=== PATIENT | female | born 1935 | race Caucasian/White ===

== ENCOUNTER 2018-06-28 08:47 | Emergency (ER) | payer MEDICARE, OTHER ==
--- NOTE | 2018-06-28 09:10 | ED ---
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 Pt describes the pain as radiating and it woke her from her sleep. Associated sx: intermittent "twinge" in L anterior chest; nausea. Pt states she went out to dinner last night and she felt OK. Aggravating factors: None. Alleviating factors: nitro, which her daughter gave her. 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 Sees Dr. Proctor, cardio, last seen on 06/01 for routine evaluation. Pt lives in [place], but is supposed to travel with her daughter to [place] tomorrow. - History of Current Complaint Chief Complaint: EDChestWallPain Time Seen by Provider: 06/28/18 08:58 Hx Obtained From: Patient, Family/Mineralogy Professor - daughter present Onset/Duration: Started Hours Ago, Atraumatic, Still Present Timing: Constant Initial Severity: Mild Current Severity: Mild Pain Intensity: 3 Pain Scale Used: 0-10 Numeric Chest Pain Location: Diffuse Chest Pain Radiates: Yes Chest Pain Radiates To:: Back Character: Other: - radiating Aggravating Factor(s): Nothing Alleviating Factor(s): NTG 123 Associated Signs and Symptoms: Positive: Nausea, Other: - intermittent "twinge" at L chest - Allergy/Home Medications Allergies/Adverse Reactions: Allergies Allergy/AdvReac Type Severity Reaction Status Date / Time latex Allergy Rash Verified 06/28/18 09:10 Home Medications: Home Medications Acetaminophen [Tylenol Extra Strength] 1,000 mg PO TID PRN 06/28/18 [History Confirmed 06/28/18] Cyanocobalamin TAB* [Vitamin B12 TAB*] 500 mcg PO DAILY 06/28/18 [History Confirmed 06/28/18] Lisinopril TAB* [Prinivil TAB*] 20 mg PO DAILY 06/28/18 [History Confirmed 06/28] Nitroglycerin TAB 0.4 MG* 0.4 mg SL Q5M PRN 06/28/18 [History Confirmed 06/28/18 ] Om3-Dha/Epa/D3/Lutein/Zeazanth [Eye [place] Advantage/Vitam] 1 cap PO BID [History Confirmed 06/28/18] Omeprazole CAP* [Prilosec CAP* 20 MG] 40 mg PO DAILY 06/28/18 [History Confirmed 06/28/18] Oxybutynin XL TAB* [Ditropan XL TAB*] 5 mg PO DAILY 06/28/18 [History Confirmed 06/28/18] Simvastatin (NF) [Zocor (NF)] 40 mg PO DAILY 06/28/18 [History Confirmed ] amLODIPine TAB* [Norvasc 5 mg TAB*] 5 mg PO DAILY 06/28/18 [History Confirmed ] diPHENhydraMINE PO* [Benadryl PO 25 MG TAB*] 25 mg PO BEDTIME PRN 06/28/18 [ History Confirmed 06/28/18] PMH/Surg Hx/FS Hx/Imm Hx Previously Healthy: No Cardiovascular History: Reports: Hx Coronary Artery Disease - 2 CARDIAC STENTS AFTER AR 2007, Hx Hypertension - ON MEDS, Hx Myocardial Infarction, Other Cardiovascular Problems/Disorders - STRESS TEST 09/26/13 Respiratory History: Denies: Other Respiratory Problems/Disorders GI History: Reports: Hx Gastroesophageal Reflux Disease Denies: Other GI Disorders History: Denies: Other Problems/Disorders Musculoskeletal History: Reports: Hx Arthritis - OSTEO HANDS, KNEES LOW BACK Sensory History: Reports: Hx Cataracts, Hx Contacts or Glasses - GLASSES Denies: Hx Hearing Aid Opthamlomology History: Reports: Hx Cataracts, Hx Contacts or Glasses - GLASSES Neurological History: Denies: Other Neuro Impairments/Disorders - Surgical History Surgery Procedure, Year, and Place: 2 CARDIAC STENTS 2007, [facility]. HYSTERECTOMY, , [facility]. TONSILECTOMY A CHILD Hx Anesthesia Reactions: No Infectious Disease History: No Infectious Disease History: Denies: Traveled Outside the [place] in Last 30 Days - Family History Known Family History: Negative: Other - neg: anaesthesia reaction - Social History Occupation: Retired Lives: With Family Alcohol Use: Weekly Alcohol Amount: 2-3 PER WEEK Substance Use Type: Reports: None Smoking Status (MU): Never Smoked Tobacco Review of Systems Positive: Chest Pain - diffuse CP and "twinge" at L chest Positive: Nausea Positive: Other - pos: back pain All Other Systems Reviewed And Are Negative: Yes Physical Exam - Summary Physical Exam Summary: Appearance: The patient is well-nourished in no acute distress and in no acute pain. Skin: The skin is warm and dry and skin color reflects adequate perfusion. HEENT: The head is normocephalic and atraumatic. The pupils are equal and reactive. The conjunctivae are clear and without drainage. Nares are patent and without drainage. Mouth reveals moist mucous membranes and the throat is without erythema and exudate. The external ears are intact. The ear canals are patent and without drainage. The tympanic membranes are intact. Neck: the neck is supple with full range of motion and non-tender. There are no carotid bruits. There is no neck vein distension. Respiratory: Chest is non-tender. Lungs are clear to auscultation and breath sounds are symmetrical and equal. Cardiovascular: Heart is regular rate and rhythm. There is no murmur or rub auscultated. There is no peripheral edema and pulses are symmetrical and equal. Good bilateral radial and bilateral dorsalis pedis pulses. Abdomen: The abdomen is soft and non-tender. There are normal bowel sounds heard in all four quadrants and there is no organomegaly palpated. Musculoskeletal: There is no back tenderness noted. Extremities are non-tender with full range of motion. There is good capillary refill. There is no peripheral edema or calf tenderness elicited. Good bilateral radial and bilateral dorsalis pedis pulses. Neurological: Patient is alert and oriented to person, place and time. The patient has symmetrical motor strength in all four extremities. Cranial nerves are grossly intact. Deep tendon reflexes are symmetrical and equal in all four extremities. Psychiatric: The patient has an appropriate affect and does not exhibit any anxiety or depression. Triage Information Reviewed: Yes Vital Signs On Initial Exam: Initial Vitals Temp Pulse Resp BP Pulse Ox 97.8 F 63 16 143/64 99 06/28/18 08:51 06/28/18 08:51 06/28/18 08:51 06/28/18 08:51 06/28/18 08:51 Vital Signs Reviewed: Yes Diagnostics - Vital Signs Vital Signs Temp Pulse Resp BP Pulse Ox 06/28/18 08:51 97.8 F 63 16 143/64 99 - Laboratory Result Diagrams: 06/28/18 09:19 06/28/18 09:19 Lab Statement: Any lab studies that have been ordered have been reviewed, and results considered in the medical decision making process. - Radiology CXR Xray Interpretation: No Acute Changes - IMPRESSION: No active cardiopulmonary dz. ED provider has reviewed this report. Radiology Interpretation Completed By: Radiologist - EKG 0926 Cardiac Rate: NL - 61 bpm EKG Rhythm: Sinus Rhythm ST Segment: Normal Ectopy: None EKG Interpretation: no STEMI Re-Evaluation - Re-Evaluation 1 Re-Evaluation Time: 13:00 Change: Unchanged Comment: Discussing results with pt. Pt does not want to be admitted. Chest Pain Course/Dx - Course Course Of Treatment: Ms. Ambriz presented with a worrisome story of chest pain which occurred during the night and was mostly relieved by nitroglycerin. She felt a bit nauseated with it but had no other associated symptoms and could not identify any exacerbating or relieving factors. Her initial troponin was 0 and I consult with the hospitalist group. Shonda Loliantonio Rucker came and saw the patient however she refused to stay in the hospital. She was willing to wait for a second troponin which was also 0. She is supposed to fly to [place] tomorrow with her daughter. I recommended against it given the incomplete pressurization of the cabin. She understands my concern but is not willing to stay in the hospital. - Diagnoses Provider Diagnoses: Chest pain - Provider Notifications Discussed Care Of Patient With: Kya Diego - hospitalist Time Discussed With Above Provider: 09:34 Instructed by Provider To: Other - Recommends admission. Discharge - Sign-Out/Discharge Documenting (check all that apply): Patient Departure - DC - Discharge Plan Condition: Stable Disposition: HOME Patient Education Materials: Chest Pain (ED) Referrals: Anne Dasilva MD [Primary Care Provider] - As Soon As Possible Additional Instructions: Please return to the ED if you experience new or worsening symptoms. Follow up with your primary care provider as soon as possible. - Billing Disposition and Condition Condition: STABLE Disposition: Home - Attestation Statements Document Initiated by Scribe: Yes Documenting Scribe: Hermann Bella Provider For Whom Beverly is Documenting (Include Credential): Dr. Rah Hartmann MD Scribe Attestation: Hermann Forrester scribed for Dr. Rah Hartmann MD on 06/28/18 at 1537. Scribe Documentation Reviewed: Yes Provider Attestation: The documentation as recorded by the scribe, SooYoung VanDeMark accurately reflects the service I personally performed and the decisions made by me, Dr. Rah Hartmann MD
[2018-06-28 09:29] LABS: ABS Basophils 0 10^3/ul (0-0.2); ABS Eosinophils 0.1 10^3/ul (0-0.6); ABS Lymphocytes 1.1 10^3/ul (1.0-4.8); ABS Monocytes 0.6 10^3/ul (0-0.8); ABS Neutrophils 4.7 10^3/ul (1.5-7.7); ABS Nucleated RBC 0 10^3/ul; Eosinophil % 1.9 % (0-6); Hematocrit 38 % (35-47); Hemoglobin 13.1 g/dl (12.0-16.0); Lymphocyte % 16.8 % (25-47); Mean Corpuscular HGB Conc 34 g/dl (31-36); Mean Corpuscular Hemoglobin 31 pg (27-31); Mean Corpuscular Volume 92 fL (80-97); Mean Platelet Volume 7.9 um3 (7.4-10.4); Nucleated Red Blood Cells % 0.1; Platelet Count 289 10^3/ul (150-450); Red Blood Count 4.17 10^6/ul (4.00-5.40); Red Cell Distribution Width 13 % (10.5-15); White Blood Count 6.6 10^3/ul (3.5-10.8)
[2018-06-28 09:35] LABS: INR 0.88 (0.77-1.02)
--- NOTE | 2018-06-28 09:38 | RAD ---
HISTORY: CP COMPARISONS: None VIEWS: 1: frontal portable view of the chest at 9:21 AM FINDINGS: LINES AND TUBES: None. CARDIOMEDIASTINAL SILHOUETTE: The cardiomediastinal silhouette is normal for portable technique. PLEURA: The costophrenic angles are sharp. No pleural abnormalities are noted. LUNG PARENCHYMA: The lungs are clear. ABDOMEN: The upper abdomen is clear. There is no subphrenic gas. BONES AND SOFT TISSUES: No bone or soft tissue abnormalities are noted. IMPRESSION: NO ACTIVE CARDIOPULMONARY DISEASE.
[2018-06-28 09:54] LABS: EGFR Non-African American 65.7 (>60)
[2018-06-28 12:05] VITALS: BP 142/85
--- NOTE | 2018-06-28 20:37 | CONS ---
CC: Dr. Rozina Proctor; Dr. Anne Dasilva * CONSULTATION REPORT: DATE OF CONSULT: 06/28/18 - EMERGENCY DEPT PRIMARY CARE PROVIDER: Dr. Anne Dasilva. PRIMARY GAGE DESIGNER: Dr. Rozina Proctor. ATTENDING PHYSICIAN: Dr. Kya Diego (dictated by Brooke Castro NP). CHIEF COMPLAINT: Chest pain. HISTORY OF PRESENT ILLNESS: Ms. Ambriz is an 83-year-old female with past medical history significant for coronary artery disease, status post MA and cardiac stenting; hypertension; arthritis; hyperlipidemia; osteoarthritis; paroxysmal SVT; chronic ischemic cardiomyopathy and GERD, who states that she has been in her usual state of health and planning for a trip to [place] with her daughter tomorrow. She states that she woke overnight with chest discomfort that she describes as a dullness in her back and right chest. She did not wake her daughter, but when her daughter woke up this morning, she notified her of the chest pain and her daughter gave her a Nitro. This improved the pain. She then took a second Nitro and the pain completely resolved. She denied any associated fevers, chills, shortness of breath, diaphoresis. She did report some nausea this morning. She denies any urinary symptoms such as urgency, burning, or dysuria. She reports that this chest pain is different than her previous chest pain with her MA. The patient reports seeing Dr. Proctor around 06/01/18, at which time she was cleared to have her annual followup next year. The patient last had a cardiac stress test in 2015 showing an EF of 38% and moderate size lateral wall infarction pattern with mild superimposed ischemia. She had an echo last in June of 2016 showing an EF of 55% to 60% and mitral regurgitation and mild mitral stenosis. According to the Cardiology notes, the plan is for the patient to have another echo prior to her next annual visit. The patient reports being very anxious about traveling tomorrow. Currently, the patient has no plans on when she would return home from [place] and her daughter has not bought a return ticket yet, just a one way ticket to [place]. The patient presented to the emergency room due to her chest pain for further evaluation. While in the emergency room, she had an EKG showing a normal sinus rhythm. She had labs showing a troponin of 0.01. She had a chest x-ray showing no active disease. The hospitalists were asked to evaluate the patient. Upon my evaluation, the patient was requesting to leave, but currently agrees to stay for a repeat troponin. Hospitalists will continue to follow until the second troponin. PAST MEDICAL HISTORY: 1. Coronary artery disease, status post MA. 2. Hypertension. 3. Hyperlipidemia. 4. Osteoarthritis. 5. Paroxysmal SVT. 6. Chronic ischemic cardiomyopathy. 7. GERD. PAST SURGICAL HISTORY: 1. Status post cardiac stenting in 2012. 2. Status post hysterectomy. 3. Status post tonsillectomy. MEDICATIONS: Home medications: 1. Nitroglycerin 0.4 mg sublingual as needed for chest pain. 2. Amlodipine 5 mg oral daily. 3. Simvastatin 40 mg oral daily. 4. Omeprazole 40 mg oral daily. 5. Lisinopril 20 mg oral daily. 6. Metoprolol succinate 50 mg oral daily in the evening. 7. Ibuprofen 400 mg oral every 6 hours as needed for pain. 8. Acetaminophen 1000 mg oral 3 times daily as needed for pain. 9. Aspirin 81 mg oral daily. 10. AREDS Preservision 1 tablet oral twice daily 11. Ditropan 5 mg oral daily. ALLERGIES: LATEX allergies. FAMILY HISTORY: The patient's mother passed from an MA. She also had a history of diabetes. No family history of cancer. SOCIAL HISTORY: The patient denies tobacco or recreational drug use. She drinks 2 to 3 alcoholic drinks per week. Her granddaughter, Magdalena Gonzalez, will be her surrogate decision maker in the event she is unable to make decisions for herself. REVIEW OF SYSTEMS: I performed an 11-point review of systems. All the pertinent positives and negatives are mentioned in the history of present illness. The remaining review of systems are negative. PHYSICAL EXAM: Vital Signs: Temperature 97.8, heart rate 63, respiratory rate 16, O2 sat 99% on room air, blood pressure 143/64. General Appearance: The patient is alert, pleasant, and appears to be in no acute distress. HEENT: Normocephalic, atraumatic. Pupils are equal and reactive to light. Extraocular movements are intact. Respiratory: There is no accessory muscle use. Lungs are clear to auscultation bilaterally. Cardiovascular: Regular rate and rhythm. S1, S2 present. There are no murmurs, rubs, or gallops heard. Abdomen: Soft, nontender, nondistended. There are bowel sounds present x4. Extremities: There is no lower extremity edema. DP and PT pulses are 1+ and symmetric. Musculoskeletal: There is no clubbing or cyanosis noted. The patient exhibits good strength in all extremities. The patient does have reproducible chest discomfort with palpation to the right chest. Neurological: The patient is alert and oriented x4. Cranial nerves II through XII are grossly intact. Psychological: The patient is calm and cooperative. Skin: There are no rashes or abnormalities seen. DIAGNOSTIC STUDIES/LAB DATA: Sodium 141, potassium 4.0, chloride 107, CO2 of 26 , BUN 19, creatinine 0.83, glucose 110. White blood cell count 6.6, hemoglobin 13.1, hematocrit 38, platelet count 289. Troponin 0.01. EKG shows a sinus rhythm, rate of 61. There are no acute signs of ischemia. There are no previous EKGs for comparison. Chest x-ray from today. Radiologist's impression: There is no active cardiopulmonary disease. IMPRESSION: Ms. Ambriz is an 83-year-old female with past medical history significant for coronary artery disease, status post myocardial infarction; hypertension; hyperlipidemia; osteoarthritis; paroxysmal supraventricular tachycardia; chronic ischemic cardiomyopathy, and gastroesophageal reflux disease, who presents to the emergency room with complaints of chest pain. At this time, the patient has been seen in consultation by the Hospitalist. She was requesting to leave, but will stay for a second troponin. ASSESSMENT/PLAN: 1. Chest pain. The patient has a ELVIA score of 3. It was recommended that she stay for stress testing and possible echocardiogram in the morning. At this time, the patient is declining and requesting to go home. She has agreed to stay for a second troponin in the emergency room. She has been instructed to call Dr. Proctor's office to set up a followup appointment. The patient's last EF was 55% to 60%. She last had a stress test in 2016 in addition to her echo. The patient's pain is reproducible on the right side. I suspect this could be muscular, and she is also anxious about her travel tomorrow, but due to her being high risk, I am recommending that she be admitted for continued workup. At this time, I am deferring the patient back to the ER provider as she is requesting to leave against medical advice. 2. Hypertension. She appears to be normotensive in the ER. We will continue her on her home amlodipine, Lisinopril, and metoprolol. 3. Coronary artery disease. She will be continued on her aspirin, metoprolol, and statin. If she stays, I recommend getting fasting lipids in the morning. 4. Hyperlipidemia. The patient will be continued on her home statin. Again, per above, I recommend getting fasting lipids in the morning if she is to stay overnight. 5. Chronic ischemic cardiomyopathy. She should have daily weights, strict I's and O's. We will consider getting a repeat echo if she decides stays. If she does not, she has an echo planned with Cardiology sometime during the next year prior to her annual follow-up appointment. 6. Gastroesophageal reflux disease. She will be continued on her home ranitidine. 7. Fluids, electrolytes, and nutrition: She should be on a heart-healthy diet. 8. Code status: DNR. 9. DVT prophylaxis: The patient is at high risk and would have subcu heparin if she is admitted. If she is not admitted, she is encouraged to ambulate. 10. Disposition: At this time, the patient is choosing to leave the emergency room against medical advice. TIME SPENT: Time for this consultation was approximately 60 minutes, greater than half of that was spent with the patient and her daughter discussing medications, past medical history, the events leading up to her arrival today, and performing a physical examination. The case has been reviewed with the attending, Dr. Diego, who agrees with the plan of care. Reviewed by VENUS FARRELL 06/29/18 1221 [id number]/[facility] #: [id number] SAJI
== END 2018-06-28 13:06 | disposition home or self-care (01) ==
LOC: ED 08:47
DX: R07.89 Other chest pain (principal); R11.0 Nausea; I25.10 Atherosclerotic heart disease of native coronary artery without angina pectoris; I25.2 Old myocardial infarction; I10 Essential (primary) hypertension; E78.5 Hyperlipidemia, unspecified; K21.9 Gastro-esophageal reflux disease without esophagitis; Z95.5 Presence of coronary angioplasty implant and graft; Z91.040 Latex allergy status
CPT/HCPCS: 36415; 71045; 80053; 83605; 83880; 84484; 85025; 85610; 93005; 99283

== ENCOUNTER 2019-05-21 05:44 | Inpatient (IN) | payer MEDICARE, BC ==
--- NOTE | 2019-05-11 14:57 | HP ---
AMENDED REPORT NOW INCLUDES DESIGNATED COSIGNER HISTORY AND PHYSICAL: DATE OF ADMISSION/SURGERY: 05/21/19 DATE OF OFFICE VISIT: 05/08/19 SURGEON: Janeen Decker MD * (DICTATED BY GENEVA TERRY) PROCEDURE: Left total knee replacement. CHIEF COMPLAINT: Left knee pain. HISTORY OF PRESENT ILLNESS: Ms. Ambriz is an 84-year-old female with 1 year of left knee pain. Her pain has become a 5/10 daily aching pain along the joint line of her left knee. She has difficulty walking more than a block. She has difficulty bending the knee and stair climbing. In the past, she has tried use of a cane, steroid injections, physical therapy, and anti- inflammatories without relief. At this point, she has failed conservative treatment and is electing for left knee arthroplasty. PAST MEDICAL HISTORY: Coronary artery disease, myocardial infarction, hypertension, hypercholesterolemia, and osteoarthritis. PAST SURGICAL HISTORY: Right total knee arthroplasty in 2014, cardiac stent x2 in 2007, and hysterectomy in 1979. MEDICATIONS: 1. Spironolactone 25 mg half a tablet p.o. daily. 2. Lisinopril 20 mg one and a half tablets p.o. daily in the evening. 3. Metoprolol succinate ER 100 mg half a tablet every day in the evening. 4. Nitrostat 0.4 mg 1 q.5 minutes up to 3 doses p.r.n. 5. Aspirin EC 81 mg 1 p.o. daily. 6. Omeprazole 20 mg 1 p.o. twice daily. 7. PreserVision AREDS 1 p.o. twice daily. 8. Vitamin B12 one capsule p.o. daily. 9. Simvastatin 40 mg 1 tablet p.o. daily in the p.m. ALLERGIES: LATEX. FAMILY HISTORY: Positive for diabetes, coronary artery disease, hypertension, osteoarthritis. SOCIAL HISTORY: She lives alone. She is a retired [employer] librarian. Her grandchildren do live close. She denies tobacco, recreational drug use, or alcohol use. She is normally active and she is right hand dominant. REVIEW OF SYSTEMS: General: Negative for fevers, chills, night sweats, unexplained weight loss or gain. No known anesthesia problems. HEENT: Negative for headache, lightheadedness, syncopal episodes, visual changes. Integumentary: Negative for abrasions, lesions, open wounds. Cardiothoracic: Negative for hypertension, chest pain, palpitations, or edema. Respiratory: Negative for shortness of breath with exertion, chronic cough, wheezing. GI: Negative for nausea, vomiting, diarrhea, constipation, or GERD symptoms. : Negative for nocturia, urinary frequency, urgency, history of UTIs, or kidney problems. Musculoskeletal: Positive for left knee pain. Negative for chronic or intermittent back pain or history of fractures. Neurologic: Positive for poor balance. Negative for paraesthesias, numbness, history of seizures, or stroke. Negative for anxiety, depression. Endocrine: Negative for diabetes or thyroid issues. Hematologic: Negative for easy bruising, anemia, bleeding disorders, or history of DVT or PE. ID: Negative for history of MRSA infection , hep C, or HIV. PHYSICAL EXAMINATION GENERAL: Well-developed, well-nourished 84-year-old female, in no acute distress. VITAL SIGNS: Height 62.5 inches, weight 147 pounds. Pulse 70, BP 128/72, respirations 12. BMI 26.6. HEENT: Normocephalic, atraumatic. PERRLA. Extraocular movements intact. NECK: Supple. No palpable lymph nodes. Throat is clear. PULMONARY: Lungs are clear to auscultation bilaterally. No wheezes, rales, or rhonchi. CARDIO: Regular rate and rhythm. S1 and S2 normal. No murmurs, rubs, or gallops. No edema. ABDOMEN: Positive bowel sounds, soft, nontender. MUSCULOSKELETAL: Left lower extremity: Skin is intact. No abrasions or open wounds. No palpable masses or lymph nodes. Moderate effusion at the knee joint. Range of motion is 10 to 100 degrees of flexion at the knee. Moderate effusion with tenderness along the medial joint line. Valgus deformity is visible. No varus or valgus instability. Negative Anne-Marie's. Distally, no edema, varicosities, or hyperreflexia. 5/5 ankle dorsiflexion and plantarflexion strength. Full sensation to light touch intact in all nerve distributions and 2+ DP pulse. NEUROLOGIC: A and O x3. Cranial nerves II through XII intact. Sensation is intact to light touch. DIAGNOSTIC STUDIES/LAB DATA: Multiple views of the left knee shows severe end - stage arthritis with [id number] contact in the lateral compartment. There is tricompartmental joint space narrowing, osteophyte formation, and subchondral sclerosis. IMPRESSION: Left knee severe osteoarthritis. PLAN: The patient is scheduled to undergo a left total knee arthroplasty on . Dr. Decker went over the procedure as well as the risks and benefits with the patient. She elects to proceed. She will return to the office 10 to 14 days postop for followup and suture removal. Upon discharge from the hospital, she will be given a prescription for Percocet for postoperative pain management and I-STOP was performed today in the office. GENEVA GUAJARDO [id number]/[facility] #: [id number] SAJI
[~2019-05-21 05:44] MED LIST: Buffered Lidocaine 1% SYRIN* 1 ML/SYRINGE INTRADERM ONE
--- OUTSIDE RECORDS SUMMARY | 2019-05-21 05:48 | XMS REPORT | Continuity of Care Document ---
:1935 External Reference #:[id number] Author Name Genoveva Vogel Care Team Providers Name Role Phone Anne Dasilva MD Primary Care Physician Unavailable Payers Date Identification Numbers Payment Provider Subscriber Policy Number: [id number] Medicare Lisa Scott Ambriz PayID: [id number] [address] [place] [address] Effective: 2000 Policy Number: [id number] Medicare Lisa Chavez Katina Expires: 2019 PayID: [id number] [address] [place] [address] Effective: 2012 Policy Number: [id number] [facility] Lisa Scott Ambriz PayID: [id number] [address] [place] [address] Problems Active Problems Provider Date Old myocardial infarction Rozina Proctro M.D. Onset: 10/01/2013 Benign essential hypertension Rozina Proctor M.D. Onset: 10/01/2013 Pure hypercholesterolemia Rozina Proctor M.D. Onset: 10/01/2013 Coronary arteriosclerosis Sky Enriquez M.D. 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 Onset: 12/23/2013 Malaise and fatigue Rozina Proctor M.D. Onset: 01/24/2014 Dizziness and giddiness Rozina Proctor M.D. Onset: 09/29/2014 Dyspnea Rozina Proctor M.D. Onset: 09/29/2014 Essential hypertension Rozina Proctor M.D. Onset: 09/29/2014 Paroxysmal supraventricular tachycardia Rozina Proctor M.D. Onset: 09/29/2014 Hyperlipidemia Rozina Proctor M.D. Onset: 04/22/2015 Preoperative cardiovascular examination Rozina Proctor M.D. Onset: 07/15/2015 Atherosclerotic heart disease of [place] Rozina Proctor M.D. Onset: 07/15/2015 coronary artery without angina pectoris Chronic ischemic heart disease Rozina Proctor M.D. Onset: 07/21/2016 Mitral valve disorder Rozina Proctor M.D. Onset: 07/21/2016 Atherosclerotic heart disease of [place] Rozina Proctor M.D. Onset: 07/02/2018 coronary artery with unspecified angina pectoris Cardiomyopathy, unspecified Rozina Proctor M.D. Onset: 07/02/2018 Localized, primary osteoarthritis Janeen Decker M.D. Onset: 03/29/2019 Acquired genu valgum Janeen Decker M.D. Onset: 03/29/2019 Family History Date Family Member(s) Observation Comments General Hypertension brother General Diabetes mother General Heart Disease mother of [place] brother Social History Type Date Description Comments Sex Unknown Marital Status Lives With Alone Occupation Retired Work Status Not Currently Working retired Tobacco Use Start: Unknown Never Smoked Cigarettes Pt denies ever smoking a cigar, pipe, e-cigarettes, or using chewing tobacco. ETOH Use Rarely consumes alcohol Recreational Drug Use Denies Drug Use Tobacco Use Start: Unknown End: Patient is a former Unknown smoker Smoking Status Reviewed: 05/08/19 Patient is a former smoker Exercise Type/Frequency Physical therapy 2 time a week Allergies, Adverse Reactions, Alerts Active Allergies Reaction Severity Comments Date Latex itch per patient 07/02/2018 Inactive Allergies NKDA 10/01/2013 Medications Active Medications SIG Qnty Indications Ordering Date Provider Spironolactone 1/2 by mouth 45tabs Sky Waggoner 07/23/2018 25mg Tablets every day Anam Enriquez Lisinopril 1 1/2 tablets 90tabs I10 Rozina Proctor 05/13/2015 20mg Tablets (30mg) by mouth M.D. every day evening Metoprolol Succinate ER 1/2 tablet every 30tabs Roizna Proctor, 01/01/2014 evening M.D. 100mg Tablets ER 24HR Simvastatin 1 tablet po Galyanova, 40mg Tablets daily PM MD Anne Vitamin B12 1 cap po daily Unknown Cap Preservision Areds 1 by mouth twice Unknown a day Capsules Omeprazole 1 by mouth twice Unknown 20mg Capsules DR daily Aspirin Ec 1 by mouth every Unknown 81mg Tablets DR day Am Nitrostat one sl q5min up 25tabs Rozina Proctor, 0.4mg Tablets Sub to 3 doses as M.D. needed History Medications Rosuvastatin Calcium take 1 tablet 90tabs Rozina Proctor, 05/07/2018 - by mouth every M.D. 05/31/2018 10mg Tablets evening Amlodipine Besylate 1 by mouth 90tabs R94.39 Rozina Proctor, 07/12/2016 - 5mg every day M.D. 07/23/2018 Tablets Lisinopril 1/2 tablet by 90tabs I10 Rozina Proctor, 06/20/2016 - 40mg Tablets mouth every M.D. 07/20/2016 night at bedtime Lisinopril 1 by mouth 90tabs I10 Rozina Proctor, 05/13/2015 - 20mg Tablets every day M.D. 06/20/2016 Lisinopril 1 by mouth 401.1 Brown, 09/16/2014 - 30mg Tablets every day MD Anne 05/13/2015 Aldactazide Take 1/2 tab po 30tabs 401.1 Rozina Proctor, 08/08/2014 - 25-25mg daily in am M.D. 09/26/2014 Tablets Lisinopril 1 by mouth 90tabs 401.1 Rozina Proctor, 01/24/2014 - 20mg Tablets every day in M.D. 09/26/2014 the morning. Coreg 1 po bid 180tabs 401.1 Rozina Proctor, 12/23/2013 - 25mg Tablets M.D. 12/22/2013 Ketorolac 1 gtt R and L Rozina Luciaer, 12/23/2013 - Tromethamine eye . bid M.D. 01/21/2014 0.5% Solution Prednisolone Sodium 1 gtt r and L Rozina Hitesh, 12/23/2013 - Phosphate eye bid x 1 M.D. 01/21/2014 1% Solution week Amlodipine Besylate 1 po qd 30tabs 413.9 Rozina Craigsher, 10/01/2013 - M.D. 12/23/2013 10mg Tablets Aspirin 1 po qd 100tabs Unknown - 81mg Tablets 07/15/2015 Isosorbide 1/2 tab po qd 30tabs Unknown - Mononitrate ER 08/07/2014 30mg Tablets ER 24HR Metoprolol Succinate 1 po qd 30tabs Unknown - ER 12/23/2013 100mg Tablets ER 24HR Ramipril 1 po qd 90caps Unknown - 10mg Capsules 01/24/2014 Ranitidine HCL 1 po bid 60caps Unknown - 150mg 12/23/2013 Capsules Simvastatin 1/2 tablet po 90tabs Unknown - 40mg qhs 05/07/2018 Tablets Tramadol HCL qid prn 100tabs Unknown - 50mg 09/24/2013 Tablets Tylenol Extra 2 po prn 100tabs Unknown - Strength 03/28/2019 500mg Tablets Ibuprofen prn. Pt taking Unknown - 200mg 6 pills daily 09/26/2014 Capsules Omeprazole 1 cap po qAM 30caps Unknown - 20mg 09/26/[address] Lidoderm 1 patch by 30units Unknown - 5% Patches topical route 05/31/2018 daily , 12 hr on and 12 hr off as needed Amlodipine Besylate 1 by mouth Unknown - 5mg every day 05/07/2019 Tablets Medications Administered in Office Medication SIG Qnty Indications Ordering Provider Date Technetium TC 99M [place] DO [facility] 07/17/2018 Tetrofosmin, Per Unit Dose Up To 40 Millicuries Injection Technetium TC 99M Daryl Calderon M.D., 07/26/2016 Tetrofosmin, Per Unit Dose [facility] Up To 40 Millicuries Injection Technetium TC 99M Daryl Calderon M.D., 05/01/2015 Tetrofosmin, Per Unit Dose [facility] Up To 40 Millicuries Injection Technetium TC 99M [facility] 05/01/2015 Tetrofosmin, Per Unit Dose Up To 40 Millicuries Injection Technetium TC 99M Sky Enriquez M.D. 08/14/2014 Tetrofosmin, Per Unit Dose Up To 40 Millicuries Injection Technetium TC 99M Rozina Proctor M.D. 09/26/2013 Tetrofosmin, Per Unit Dose Up To 40 Millicuries Injection Vital Signs Date Vital Result Comment 05/08/2019 9:05am Height 62.5 inches 5'2.50" Weight 147.75 lb Heart Rate 70 /min BP Systolic 128 mmHg BP Diastolic 72 mmHg Respiratory Rate 12 /min Pain Level 0 BMI (Body Mass Index) 26.6 kg/m2 04/16/2019 3:31pm Height 62.5 inches 5'2.50" Weight 150.00 lb Heart Rate 68 /min BP Systolic Sitting 170 mmHg Rue reg cuff BP Diastolic Sitting 100 mmHg Rue reg cuff BMI (Body Mass Index) 27.0 kg/m2 03/29/2019 2:40pm Height 62.5 inches 5'2.50" Weight 147.00 lb BP Systolic 156 mmHg BP Diastolic 84 mmHg Body Temperature 98.0 F BMI (Body Mass Index) 26.5 kg/m2 09/03/2018 4:25pm Height 62 inches 5'2" Weight 146.00 lb with shoes Heart Rate 78 /min BP Systolic Sitting 110 mmHg lue reg cuff BP Diastolic Sitting 70 mmHg lue reg cuff BP Systolic Standing 112 mmHg lue reg cuff BP Diastolic Standing 72 mmHg lue reg cuff BMI (Body Mass Index) 26.7 kg/m2 Ejection Fraction 50% echo. 07/20/2018 09/03/2018 4:23pm Height 62 inches 5'2" Weight 146.00 lb with shoes BMI (Body Mass Index) 26.7 kg/m2 07/02/2018 1:14pm Height 62 inches 5'2" Weight 152.00 lb with shoes Heart Rate 64 /min BP Systolic Sitting 110 mmHg Lue reg cuff BP Diastolic Sitting 70 mmHg Lue reg cuff BP Systolic Standing 112 mmHg Lue reg cuff BP Diastolic Standing 68 mmHg Lue reg cuff Respiratory Rate 16 /min BMI (Body Mass Index) 27.8 kg/m2 06/01/2018 12:52pm Height 62 inches 5'2" Weight 145.00 lb with shoes Heart Rate 76 /min BP Systolic Sitting 130 mmHg Lue reg cuff BP Diastolic Sitting 90 mmHg Lue reg cuff BP Systolic Standing 134 mmHg Lue reg cuff BP Diastolic Standing 80 mmHg Lue reg cuff Respiratory Rate 16 /min BMI (Body Mass Index) 26.5 kg/m2 Ejection Fraction 50-55% date 06/29/16 ECHO 07/07/2017 10:48am Heart Rate 64 /min BP Systolic Sitting 130 mmHg BP Diastolic Sitting 85 mmHg Body Temperature 97.4 F 06/29/2017 10:12am Height 62 inches 5'2" Weight 150.00 lb Heart Rate 64 /min BP Systolic 124 mmHg BP Diastolic 74 mmHg Respiratory Rate 15 /min Body Temperature 96.9 F Pain Level 5 BMI (Body Mass Index) 27.4 kg/m2 05/09/2017 10:34am Height 62 inches 5'2" Weight 149.00 lb with boot Heart Rate 70 /min BP Systolic Sitting 130 mmHg Rue reg cuff BP Diastolic Sitting 80 mmHg Rue reg cuff BP Systolic Standing 110 mmHg Rue reg cuff BP Diastolic Standing 80 mmHg Rue reg cuff Respiratory Rate 17 /min BMI (Body Mass Index) 27.2 kg/m2 Ejection Fraction 50-55% date 06/29/16 ECHO 08/12/2016 8:40am Height 62 inches 5'2" Weight 145.00 lb w/ shoes Heart Rate 60 /min BP Systolic Sitting 134 mmHg Lue, reg cuff BP Diastolic Sitting 86 mmHg Lue, reg cuff BP Systolic Standing 134 mmHg Lue BP Diastolic Standing 86 mmHg Lue Respiratory Rate 16 /min BMI (Body Mass Index) 26.5 kg/m2 Ejection Fraction 50-55% as of 06/29/16 echo 07/21/2016 1:09pm Height 62 inches 5'2" Weight 143.50 lb with shoes Heart Rate 62 /min BP Systolic Sitting 136 mmHg LA reg cuff BP Diastolic Sitting 88 mmHg LA reg cuff BP Systolic Standing 138 mmHg LA reg cuff BP Diastolic Standing 90 mmHg LA reg cuff Respiratory Rate 16 /min BMI (Body Mass Index) 26.2 kg/m2 Ejection Fraction 50-55% date 06/29/16 ECHO 06/20/2016 8:52am Height 62 inches 5'2" Weight 141.50 lb with shoes Heart Rate 64 /min BP Systolic Sitting 152 mmHg LA reg cuff BP Diastolic Sitting 90 mmHg LA reg cuff BP Systolic Standing 150 mmHg LA reg cuff BP Diastolic Standing 94 mmHg LA reg cuff Respiratory Rate 17 /min BMI (Body Mass Index) 25.9 kg/m2 Ejection Fraction 45-50% 07/14/15 07/15/2015 12:58pm Height 62 inches 5'2" Weight 130.00 lb w/o shoes BP Systolic Sitting 152 mmHg Lue, reg cuff BP Diastolic Sitting 96 mmHg Lue, reg cuff BP Systolic Standing 162 mmHg Lue BP Diastolic Standing 94 mmHg Lue Respiratory Rate 18 /min BMI (Body Mass Index) 23.8 kg/m2 Ejection Fraction 45-50% as of 07/14/15 echo 05/13/2015 8:48am Height 62 inches 5'2" Weight 134.00 lb no shoes Heart Rate 64 /min BP Systolic Sitting 138 mmHg LA, reg cuff BP Diastolic Sitting 84 mmHg LA, reg cuff BP Systolic Standing 132 mmHg LA BP Diastolic Standing 88 mmHg LA Respiratory Rate 14 /min BMI (Body Mass Index) 24.5 kg/m2 Ejection Fraction 40-45% 08/12/2014 04/22/2015 3:19pm Height 62 inches 5'2" Weight 136.00 lb w/ shoes Heart Rate 66 /min reg BP Systolic Sitting 130 mmHg Lue, reg cuff BP Diastolic Sitting 76 mmHg Lue, reg cuff BP Systolic Standing 124 mmHg Lue BP Diastolic Standing 74 mmHg Lue Respiratory Rate 18 /min BMI (Body Mass Index) 24.9 kg/m2 Ejection Fraction 40-45% as of 08/12/14 echo 09/29/2014 11:33am Height 62 inches 5'2" Heart Rate 60 /min BP Systolic Sitting 160 mmHg Ra reg cuff BP Diastolic Sitting 90 mmHg Ra reg cuff BP Systolic Standing 154 mmHg 90 BP Diastolic Standing 90 mmHg 90 Respiratory Rate 16 /min 08/18/2014 9:27am Height 62 inches 5'2" Weight 133.00 lb Heart Rate 52 /min BP Systolic Sitting 132 mmHg LA, reg cuff BP Diastolic Sitting 74 mmHg LA, reg cuff BP Systolic Standing 126 mmHg LA BP Diastolic Standing 78 mmHg LA Respiratory Rate 16 /min BMI (Body Mass Index) 24.3 kg/m2 08/08/2014 2:36pm Height 62 inches 5'2" Weight 136.00 lb with shoes Heart Rate 56 /min BP Systolic Sitting 152 mmHg La reg cuff BP Diastolic Sitting 100 mmHg La reg cuff BP Systolic Standing 158 mmHg La reg cuff BP Diastolic Standing 104 mmHg La reg cuff Respiratory Rate 16 /min BMI (Body Mass Index) 24.9 kg/m2 02/03/2014 10:16am Height 62 inches 5'2" Weight 133.00 lb without shoes Heart Rate 68 /min reg BP Systolic Sitting 130 mmHg LA reg cuff BP Diastolic Sitting 90 mmHg LA reg cuff BP Systolic Standing 144 mmHg LA reg cuff BP Diastolic Standing 90 mmHg LA reg cuff Respiratory Rate 17 /min BMI (Body Mass Index) 24.3 kg/m2 01/24/2014 2:03pm Height 61.75 inches 5'1.75" Weight 131.00 lb Heart Rate 62 /min sitting/ 72 standing BP Systolic Sitting 154 mmHg BP Diastolic Sitting 90 mmHg BP Systolic Standing 144 mmHg BP Diastolic Standing 90 mmHg Respiratory Rate 20 /min BMI (Body Mass Index) 24.2 kg/m2 12/23/2013 10:13am Height 61.75 inches 5'1.75" Weight 132.00 lb Heart Rate 6064 /min sitting / standing BP Systolic Sitting 150 mmHg R Fa regular cuff BP Diastolic Sitting 90 mmHg R Fa regular cuff BP Systolic Standing 168 mmHg BP Diastolic Standing 90 mmHg Respiratory Rate 18 /min BMI (Body Mass Index) 24.3 kg/m2 10/14/2013 3:03pm Height 61.75 inches 5'1.75" Weight 131.00 lb Heart Rate 62 /min BP Systolic Sitting 130 mmHg left arm, reg cuff BP Diastolic Sitting 70 mmHg left arm, reg cuff BP Systolic Standing 116 mmHg left arm, reg cuff BP Diastolic Standing 68 mmHg left arm, reg cuff Respiratory Rate 20 /min BMI (Body Mass Index) 24.2 kg/m2 10/01/2013 4:39pm Height 62.5 inches 5'2.50" Weight 129.00 lb Heart Rate 78 /min BP Systolic 190 mmHg R arm reg cuff BP Diastolic 106 mmHg R arm reg cuff BP Systolic Sitting 148 mmHg L arm reg cuff BP Diastolic Sitting 100 mmHg L arm reg cuff BP Systolic Standing 146 mmHg L arm reg cuff BP Diastolic Standing 98 mmHg L arm reg cuff Respiratory Rate 16 /min BMI (Body Mass Index) 23.2 kg/m2 Results Test Date Facility Test Result H/L Range Note Order [facility] [place] Echocardiogram <pending> [address] [address] [phone] Xray [facility] Knee 3 Views LT <pending> 9 [address] [place] [address] [phone] Laboratory test [facility] Troponin-I (TnI) 0.01 ng/ mL <0.04 finding [address] [place] [address] [phone] Laboratory test [facility] Troponin-I (TnI) 0.01 ng/ mL <0.04 finding 8 [address] [place] [address] [phone] Comp Metabolic [facility] Sodium 141 mmol/L N 135- 145 Panel 8 [address] [place] [address] [phone] Potassium 4.0 mmol/L N 3.5-5.0 Chloride 107 mmol/L N 101-111 Co2 Carbon Dioxide 26 mmol/L N 22-32 Anion Gap 8 mmol/L N 2-11 Glucose 110 mg/dL High 70-100 Blood Urea Nitrogen 19 mg/dL N 6-24 Creatinine 0.83 mg/dL N 0.51-0.95 BUN/Creatinine Ratio 22.9 High 8-20 Calcium 9.2 mg/dL N 8.6-10.3 Total Protein 6.7 g/dL N 6.4-8.9 Albumin 4.3 g/dL N 3.2-5.2 Globulin 2.4 g/dL N 2-4 Albumin/Globulin Ratio 1.8 N 1-3 Total Bilirubin 1.00 mg/dL N 0.2-1.0 Alkaline Phosphatase 82 U/L N 34-104 Alt 8 U/L N 7-52 Ast 18 U/L N 13-39 Egfr Non- 65.7 >60 Egfr 79.4 >60 1 Laboratory test 06/28/2018 [facility] Lactic Acid 0.8 mmol/L N 0.5-2.0 2 finding [address] [place] [address] [phone] B-Type Natriuretic Peptide BNP 269 pg/mL High 3 CBC Auto Diff 06/28/2018 [facility] White Blood 6.6 10^3/uL N 3.5-10.[address] [place] [address] [phone] Red Blood Count 4.17 10^6/uL N 4.00-5.40 Hemoglobin 13.1 g/dL N 12.0-16.0 Hematocrit 38 % N 35-47 Mean Corpuscular Volume 92 fL N 80-97 Mean Corpuscular Hemoglobin 31 pg N 27-31 Mean Corpuscular HGB Conc 34 g/dL N 31-36 Red Cell Distribution Width 13 % N 10.5-15 Platelet Count 289 10^3/uL N 150-450 Mean Platelet Volume 7.9 um3 N 7.4-10.4 Abs Neutrophils 4.7 10^3/uL N 1.5-7.7 Abs Lymphocytes 1.1 10^3/uL N 1.0-4.8 Abs Monocytes 0.6 10^3/uL N 0-0.8 Abs Eosinophils 0.1 10^3/uL N 0-0.6 Abs Basophils 0 10^3/uL N 0-0.2 Abs Nucleated RBC 0 10^3/uL Granulocyte % 71.1 % N 38-83 Lymphocyte % 16.8 % Low 25-47 Monocyte % 9.5 % High 0-7 Eosinophil % 1.9 % N 0-6 Basophil % 0.7 % N 0-2 Nucleated Red Blood Cells % 0.1 Inr/Protime 06/28/2018 [facility] Inr 0.88 N 0.77-1.[address] [place] [address] [phone] Laboratory test 07/03/2017 [facility] C Reactive 1.42 mg/L N < 5.00 [address] [place] [address] [phone] Erythrocyte Sed Rate 29 mm/Hr N 0-40 5 CBC Auto Diff 07/03/2017 [facility] White Blood 7.2 10^3/uL N 3.5-10.[address] [place] [address] [phone] Red Blood Count 4.14 10^6/uL N 4.0-5.4 Hemoglobin 13.1 g/dL N 12.0-16.0 Hematocrit 39 % N 35-47 Mean Corpuscular Volume 93 fL N 80-97 Mean Corpuscular Hemoglobin 32 pg High 27-31 Mean Corpuscular HGB Conc 34 g/dL N 31-36 Red Cell Distribution Width 13 % N 10.5-15 Platelet Count 286 10^3/uL N 150-450 Mean Platelet Volume 9 um3 N 7.4-10.4 Abs Neutrophils 4.6 10^3/uL N 1.5-7.7 Abs Lymphocytes 1.7 10^3/uL N 1.0-4.8 Abs Monocytes 0.7 10^3/uL N 0-0.8 Abs Eosinophils 0.2 10^3/uL N 0-0.6 Abs Basophils 0.1 10^3/uL N 0-0.2 Abs Nucleated RBC 0 10^3/uL N Granulocyte % 64.2 % N 38-83 Lymphocyte % 23.0 % Low 25-47 Monocyte % 9.5 % High 1-9 Eosinophil % 2.6 % N 0-6 Basophil % 0.7 % N 0-2 Nucleated Red Blood Cells % 0 N Order 07/26/2016 [facility] Stress Test, <pending> Exercise Nuclear Laboratory test 10/03/2013 [facility] Inr 0.85 0.85-1.0 [address] [place] [address] [phone] Activated Partial Thrombo Time 28.0 seconds 24.0-36.1 7 CBC No Diff 10/03/2013 [facility] White Blood 5.9 10^3/uL 4.8 -10.[address] [place] [address] [phone] Red Blood Count 4.19 10^6/uL 4.0-5.4 Hemoglobin 13.3 g/dL 12.0-16.0 Hematocrit 40 % 35-47 Mean Corpuscular Volume 95 fL 80-97 Mean Corpuscular Hemoglobin 32 pg High 27-31 Mean Corpuscular HGB Conc 34 g/dL 31-36 Red Cell Distribution Width 13 % 10.5-15 Platelet Count 231 10^3/uL 150-450 Mean Platelet Volume 9 um3 7.4-10.4 Basic Metabolic Panel 10/03/2013 [facility] Sodium 139 mmol/L 133-[address] [place] [address] [phone] Potassium 3.9 mmol/L 3.5-5.0 Chloride 103 mmol/L 101-111 Co2 Carbon Dioxide 28.0 mmol/L 22-32 Anion Gap 8.0 mmol/L 2-11 Glucose 97 mg/dL 70-100 Blood Urea Nitrogen 14 mg/dL 6-24 Creatinine 0.80 mg/dL 0.50-1.40 BUN/Creatinine Ratio 17.5 8-20 Calcium 9.2 mg/dL 8.1-9.9 Egfr Non- 69.4 >60 Egfr 89.2 >60 8 1 Because ethnic data is not always readily available, this report includes an eGFR for both -Americans and non- Americans. The National Kidney Disease Education Program (NKDEP) does not endorse the use of the MDRD equation for patients that are not between the ages of 18 and 70, are , have extremes of body size, muscle mass, or nutritional status, or are non- or non-. According to the National Kidney Foundation, irrespective of diagnosis, the stage of the disease is based on the level of kidney function: Stage Description GFR(mL/min/1.73 m(2)) 1 Kidney damage with normal or decreased GFR 90 2 Kidney damage with mild decrease in GFR 60-89 3 Moderate decrease in GFR 30-59 4 Severe decrease in GFR 15-29 5 Kidney failure <15 (or dialysis) 2 [facility] Severe Sepsis and Septic Shock Management Bundle Measure requires all lactic acids initially measuring >2.0 mmol/L be repeated. 3 >100 to <200 pg/mL: likely compensated congestive heart failure (CHF) 200 to 400 pg/mL: likely moderate CHF >400 pg/mL: likely moderate to severe CHF 4 Acute inflammation: >10.00 5 swelling left ankle 6 Please note the change in the INR reference range effective 13. 7 Please note the change in the PTT reference range effective 13. 8 Because ethnic data is not always readily available, this report includes an eGFR for both -Americans and non- Americans. The National Kidney Disease Education Program (NKDEP) does not endorse the use of the MDRD equation for patients that are not between the ages of 18 and 70, are , have extremes of body size, muscle mass, or nutritional status, or are non- or non-. According to the National Kidney Foundation, irrespective of diagnosis, the stage of the disease is based on the level of kidney function: Stage Description GFR(mL/min/1.73 m(2)) 1 Kidney damage with normal or decreased GFR 90 2 Kidney damage with mild decrease in GFR 60-89 3 Moderate decrease in GFR 30-59 4 Severe decrease in GFR 15-29 5 Kidney failure <15 (or dialysis) Procedures Date Code Description Status 05/06/2019 71846 ECHO Transthoracic, Real-Time 2D With Doppler And Color Completed Flow 04/16/2019 64650 EKG Tracing & Interpretation Completed 07/20/2018 11555 ECHO Transthoracic, Real-Time 2D With Doppler And Color Completed Flow 07/20/2018 97200 ECHO Transthoracic, Real-Time 2D With Doppler And Color Completed Flow 07/17/2018 59044 Stress Test Completed 07/17/2018 21928 Myocardial Perfusion Imaging Tomographic (Spect) Multiple Completed Studies 07/02/2018 20363 EKG Tracing & Interpretation Completed 06/01/2018 24681 EKG Tracing & Interpretation Completed 05/09/2017 36718 EKG Tracing & Interpretation Completed 07/26/2016 65760 Stress Test Completed 07/26/2016 43681 Myocardial Perfusion Imaging Tomographic (Spect) Multiple Completed Studies 07/12/2016 31110 ECHO Stress Test Incl Perf Contiuous ekg Monitoring W/Phys Completed Superv 06/29/2016 98283 ECHO Transthoracic, Real-Time 2D With Doppler And Color Completed Flow 06/29/2016 50148 ECHO Transthoracic, Real-Time 2D With Doppler And Color Completed Flow 06/20/2016 54848 EKG Tracing & Interpretation Completed 05/01/2015 93490 Myocardial Perfusion Imaging Tomographic (Spect) Multiple Completed Studies 05/01/2015 00288 Myocardial Perfusion Imaging Tomographic (Spect) Multiple Completed Studies 05/01/2015 43335 Stress Test Completed 04/28/2015 60348 Holter Monitoring 24 HR New Completed 04/22/2015 55996 EKG Tracing & Interpretation Completed 08/14/2014 34113 Stress Test Completed 08/14/2014 15014 Myocardial Perfusion Imaging Tomographic (Spect) Multiple Completed Studies 08/12/2014 62498 ECHO Transthoracic, Real-Time 2D With Doppler And Color Completed Flow 08/11/2014 36278 Holter Monitoring 24 HR New Completed 08/08/2014 37908 EKG Tracing & Interpretation Completed 10/21/2013 96052 ECHO Transthoracic, Real-Time 2D With Doppler And Color Completed Flow 10/07/2013 29236 Left Heart Cath. Incl S/I Coronaries, Angio S/I V Gram If Completed Done 10/01/2013 95806 EKG Tracing & Interpretation Completed 09/26/2013 99514 Stress Test Completed 09/26/2013 52222 Myocardial Perfusion Imaging Tomographic (Spect) Multiple Completed Studies Encounters Type Date Location Provider Dx Diagnosis Office Visit 04/16/2019 [facility] Amaya Bennett, Z01.810 Encounter for 3:30p Of [facility] [employer] preprocedural cardiovascular examination I25.119 Athscl heart disease of [place] cor art w unsp ang pctrs I25.5 Ischemic cardiomyopathy I10 Essential (primary) hypertension Office Visit 03/29/2019 2:[facility] Janeen Decker, M25.562 Pain in left Of [facility] M.D. knee M25.462 Effusion, left knee M17.12 Unilateral primary osteoarthritis, left knee M21.062 Valgus deformity, not elsewhere classified, left knee Office Visit 09/03/2018 [facility] Rozina Proctor I25.5 Ischemic 4:20p Cardiology Of M.D. cardiomyopathy [facility] I25.119 Athscl heart disease of [place] cor art w unsp ang pctrs I34.0 Nonrheumatic mitral (valve) insufficiency I10 Essential (primary) hypertension Office Visit 07/02/2018 1:30p [facility] Rozina Proctor, I25.119 Athscl heart Of [facility] M.D. disease of [place] cor art w unsp ang pctrs M54.5 Low back pain R06.01 Orthopnea I25.5 Ischemic cardiomyopathy I34.0 Nonrheumatic mitral (valve) insufficiency Office Visit 06/28/2018 [facility] R07.9 Chest pain, 8:25a Assoc,pc Chaim, [employer] unspecified Hospitalists I10 Essential (primary) hypertension Office Visit 06/01/2018 1:10p [facility] Rozina Proctor, I25.10 Athscl heart Of [facility] M.D. 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 Office Visit 06/29/2017 10:00a [facility] M65.872 Other synovitis Services [facility] and tenosynovitis, C.M.A. left ankle and foot Office Visit 05/09/2017 10:45a [facility] Roz[facility] Proctor, I25.10 [facility].D. disease of [place] [facility] coronary artery w/o ang pctrs I25.2 Old myocardial infarction I34.0 Nonrheumatic mitral (valve) insufficiency E78.00 Pure hypercholesterolemia, unspecified I10 Essential (primary) hypertension Office Visit 08/12/2016 8:45a [facility] Rozina Proctor, R06.02 Shortness of Of [facility] M.D. breath I25.2 Old myocardial infarction I25.5 Ischemic cardiomyopathy I10 Essential (primary) hypertension I34.0 Nonrheumatic mitral (valve) insufficiency Office Visit 07/21/2016 1:15p [facility] Rozina Proctor, R06.02 Shortness of Of [facility] M.D. breath R94.30 Abnormal result of cardiovascular function study, unsp I25.2 Old myocardial infarction I25.5 Ischemic cardiomyopathy I34.0 Nonrheumatic mitral (valve) insufficiency Office Visit 06/20/2016 9:15a [facility] Rozina Proctor, I25.10 [facility] M.D. disease of [place] coronary artery w/o ang pctrs R42 Dizziness and giddiness I25.2 Old myocardial infarction I10 Essential (primary) hypertension E78.0 Pure hypercholesterolemia R06.02 Shortness of breath Office Visit 07/15/2015 1:15p [facility] Rozina Proctor, I25.10 [facility] M.D. disease of [place] coronary artery w/o ang pctrs Z01.810 Encounter for preprocedural cardiovascular examination M17.11 Unilateral primary osteoarthritis, right knee Office Visit 05/13/2015 9:00a [facility] Rozina Proctor, 412 Myocardial Of [place] M.D. Infarction Old 780.4 Dizziness & Giddiness 425.9 Cardiomyopathy Secondary Unspecified 787.01 Nausea W/ Vomiting Office Visit 04/22/2015 3:15p [facility] Rozina Proctor, 780.4 Dizziness & Of [place] M.D. Giddiness 412 Myocardial Infarction Old 425.9 Cardiomyopathy Secondary Unspecified 784.0 Headache 787.01 Nausea W/ Vomiting 272.4 Hyperlipidemia Other Unspec Office Visit 09/29/2014 10:45a [facility] Rozina Proctor, 780.4 Dizziness & Of [place] M.D. Giddiness 786.09 Dyspnea & Respiratory Abnormalities Other 412 Myocardial Infarction Old 425.9 Cardiomyopathy Secondary Unspecified 786.05 Shortness Of Breath 401.9 Hypertension Unspec 427.0 PSVT Paroxysmal Supraventricular Tachycardia Office Visit 08/18/2014 9:30a [facility] Of Melissa Lopez, [place] 785.1 Palpitations [place] 786.05 Shortness Of Breath 401.1 Hypertension Benign 412 Myocardial Infarction Old 414.01 Coronary Atherosclerosis [place] 424.0 Mitral Valve Disorder Office Visit 08/08/2014 3:00p [facility] Melissa Lopez, 401.1 Hypertension Benign Of [place] 780.79 Malaise And Fatigue Other 425.9 Cardiomyopathy Secondary Unspecified 414.9 Ischemic Heart Disease Chronic Unspec 786.05 Shortness Of Breath 785.1 Palpitations Office Visit 01/24/2014 [facility] Rozina Proctor, 414.01 Coronary 1:45p Cardiology Of M.D. Atherosclerosis [facility] [place] 401.1 Hypertension Benign 412 Myocardial Infarction Old 780.79 Malaise And Fatigue Other Office Visit 12/23/2013 [facility] Rozina Proctor 414.01 Coronary 9:30a Cardiology Of M.D. Atherosclerosis [place] 425.9 Cardiomyopathy Secondary Unspecified 401.1 Hypertension Benign 786.09 Dyspnea & Respiratory Abnormalities Other Office Visit 10/14/2013 2:30p [facility] Sky Waggoner 412 Myocardial Of [place] [facility] [place] M.D. Infarction Old 414.01 Coronary Atherosclerosis [place] Office Visit 10/01/2013 4:00p [facility] Rozina Proctor 412 Myocardial Of [place] M.D. Infarction Old 413.9 Angina Pectoris Other Unspec 401.1 Hypertension Benign 272.0 Hypercholesterolemia Pure Plan of Treatment Future Appointment(s):05/31/2019 1:45 pm - Janeen Decker M.D. at [facility].10/04/2019 3:30 pm - Rozina Proctor M.D. at [facility]05/09/2019 9:30 am - Rozina Proctor M.D. at [facility]2018 8:00 am - ABDI Leon at [facility]. 8:00 am - ABDI Remy at [facility].2018 8:00 am - Janeen Decker M.D. at [facility].A05/08/2019 - Janeen Decker M.D.M17.12 Unilateral primary osteoarthritis, left kneeFollow up: 10-14 days post opM25.562 Pain in left knee
[2019-05-21] MEDS ORDERED: Acetaminophen TAB* 325 MG PO ONE (06:00)
[2019-05-21] MEDS ORDERED: Famotidine TAB* 20 MG PO ONE (06:00)
[2019-05-21] MEDS ORDERED: Dexamethasone IV* 4 MG/ML 1 ML (4 MG) IV SLOW PU ONE (06:00)
[2019-05-21] MEDS ORDERED: Lactated Ringers 1000 ML Bag* 1,000 ML IV SCH (06:00)
[2019-05-21] MEDS ORDERED: celeCOXIB CAP* 100 MG PO ONE (06:00)
[2019-05-21] MEDS ORDERED: Gabapentin CAP(*) 300 MG PO ONE (06:00)
[2019-05-21] MEDS ORDERED: Dexamethasone IV* 4 MG/ML 1 ML (4 MG) ONE (06:20)
[2019-05-21] MEDS ORDERED: Acetaminophen TAB* 325 MG ONE (06:21)
[2019-05-21] MEDS ORDERED: Gabapentin CAP(*) 300 MG ONE (06:21)
[2019-05-21] MEDS ORDERED: Famotidine TAB* 20 MG ONE (06:21)
[2019-05-21] MEDS ORDERED: celeCOXIB CAP* 100 MG ONE (06:21)
[2019-05-21] MEDS ORDERED: Buffered Lidocaine 1% SYRIN* 1 ML/SYRINGE INTRADERM ONE (06:23)
[2019-05-21] MEDS ORDERED: ROPIVACAINE 5 MG/ML 30 ML BTL (0.5%) ONE ×2 (06:47→07:27)
[2019-05-21] MEDS ORDERED: fentaNYL* 50 MCG/ML 2 ML VIAL (100 MCG VIAL) ONE (07:01)
[2019-05-21] MEDS ORDERED: Midazolam* 1 MG/ML 2 ML VIAL (2 MG) ONE (07:02)
[2019-05-21] MEDS ORDERED: Ketorolac INJ* 30 MG/ML 1 ML VIAL IV PRN (07:13)
[2019-05-21] MEDS ORDERED: Ondansetron INJ* 2 MG/ML VIAL IV PRN (07:13)
[2019-05-21] MEDS ORDERED: fentaNYL* 50 MCG/ML 2 ML VIAL (100 MCG VIAL) IV PRN (07:13)
[2019-05-21] MEDS ORDERED: Naloxone* 0.4 MG/ML 1 ML VIAL IV PRN (07:13)
[2019-05-21] MEDS ORDERED: oxyCODONE TAB* 5 MG TAB PO PRN (07:13)
[2019-05-21] MEDS ORDERED: DiMENhydriNATE IV* 50 MG/ML VIAL IV PUSH PRN (07:13)
[2019-05-21] MEDS ORDERED: HYDROmorphone INJ1* 1 MG/ML SYRINGE IV PRN (07:13)
[2019-05-21] MEDS ORDERED: Acetaminophen IV 1GM/100ML * 1,000 MG/100 ML VIAL IVPB ONE (07:13)
[2019-05-21] MEDS ORDERED: Lidocaine 1% MPF ** 5 ML VIAL ONE (07:27)
[2019-05-21] MEDS ORDERED: KETAMINE HCL* 50 MG/ML 10 ML VIAL ONE (08:12)
[2019-05-21] MEDS ORDERED: Propofol* 10 MG/ML 20 ML BTL ONE ×2 (08:48→08:53)
[2019-05-21] MEDS ORDERED: Pantoprazole TAB * 40 MG TAB PO SCH (09:00)
[2019-05-21] MEDS ORDERED: EPHEDrine (Pressors)* 50 MG/ML VIAL ONE (09:48)
[2019-05-21] MEDS ORDERED: diPHENhydraMINE IV* 50 MG/ML 1 ml VIAL (BENADRYL) IV PRN (10:25)
[2019-05-21] MEDS ORDERED: oxyCODONE/Acetamin 5/325 MG* TAB PO PRN ×2 (10:25→10:34)
[2019-05-21] MEDS ORDERED: Polyethylene Glycol 3350* 17 GM PACKET PO PRN (10:25)
[2019-05-21] MEDS ORDERED: Magnesium Hydroxide LIQ* 30 ML UDC PO PRN (10:25)
[2019-05-21] MEDS ORDERED: Cyclobenzaprine TAB* 10 MG PO PRN (10:25)
[2019-05-21] MEDS ORDERED: diPHENhydraMINE PO* 25 MG PO PRN (10:25)
[2019-05-21] MEDS ORDERED: Bisacodyl SUPP* 10 MG SUPP PR PRN (10:25)
[2019-05-21] MEDS ORDERED: Morphine 4 MG/ML VIAL (1 ml) 4 MG/ML VIAL IV PRN (10:25)
[2019-05-21] MEDS ORDERED: Acetaminophen IV 1GM/100ML * 100 ML ONE (10:32)
[2019-05-21] MEDS ORDERED: Nitroglycerin TAB 0.4 MG* 0.4 MG TAB SL PRN (10:32)
[2019-05-21] MEDS ORDERED: Ketorolac INJ* 30 MG/ML 1 ML VIAL ONE (10:32)
[2019-05-21] MEDS ORDERED: Acetaminophen TAB* 325 MG PO SCH (11:00)
[2019-05-21] MEDS: Lactated Ringers 1000 ML Bag* 1,000 ML IV SCH ×2 (11:55→22:43)
--- NOTE | 2019-05-21 12:27 | CONS ---
CC: Dr. Dasilva; Dr. Proctor * CONSULTATION REPORT: DATE OF CONSULT: 05/21/19 PRIMARY CARE PROVIDER: Dr. Dasilva. TRICOT KNITTER: Dr. Proctor. REQUESTING PROVIDER IN CONSULTATION: GENEVA Remy. REASON FOR CONSULT: Co-medical management. HISTORY OF PRESENT ILLNESS/HOSPITAL COURSE: I refer you to Dr. Decker's history and physical dictated on 05/11/19 for complete details; but, in short, Ms. Ambriz is an 84-year-old female with past medical history of coronary artery disease with stenting, hypertension, hyperlipidemia, cardiomyopathy, and frequent PVCs who presented [place] [facility] [place] for an elective left total knee arthroplasty after having failed conservative treatment. The patient is seen postoperatively in the PACU. She states that she feels dizzy and her head feels "weird." She denies any pain. She notes that she is unable to feel the left and right lower extremities likely due to nerve block. She denies chest pain, shortness of breath, abdominal pain, nausea, vomiting, diarrhea. She denies headache or vision changes. PAST MEDICAL HISTORY: 1. Coronary artery disease, NM, cardiac stent x2 in 2007. 2. Cardiomyopathy. 3. Hypertension. 4. Hyperlipidemia. 5. GERD. 6. OA. PAST SURGICAL HISTORY: 1. Right total knee arthroplasty in 2014. 2. Cardiac stent x2, 2007. 3. Hysterectomy, 1979. HOME MEDICATIONS: 1. Acetaminophen 1000 mg p.o. t.i.d. p.r.n. for pain. 2. Aspirin 81 mg p.o. q.a.m. 3. Cyanocobalamin 1000 mcg p.o. q.a.m. 4. Lisinopril 30 mg p.o. at bedtime. 5. Metoprolol succinate 50 mg p.o. at bedtime. 6. Nitroglycerin 0.4 mg sublingual q.5 minutes p.r.n. for chest pain. 7. Omeprazole 20 mg p.o. b.i.d. 8. Simvastatin 40 mg p.o. at bedtime. 9. Spironolactone 12.5 mg p.o. q.a.m. 10. PreserVision AREDS 2 one tab p.o. b.i.d. DRUG ALLERGIES: LATEX, rash. FAMILY HISTORY: Mother had diabetes mellitus. No family history of heart disease, cancer, CVA. SOCIAL HISTORY: The patient is a former smoker. She quit greater than 60 years ago. Prior to that, she smoked for 1 to 2 years approximately one-half pack per day. She does not drink alcohol. 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 She lives with her granddaughter and grandson. In the event that she is unable to make her own medical decisions, she has appointed Shane Gonzalez or Magdalena Gonzalez to be her surrogate decision makers. REVIEW OF SYSTEMS: A 10-point review of systems has been performed and all the pertinent positives and negatives are in the HPI. All other systems are negative. PHYSICAL EXAM: Vital signs: Temperature 96.8; temporal, heart rate 82, respiratory rate 16, oxygen saturation 96% on room air, blood pressure 84/65. General: Ms. Ambriz is a well-developed, well-nourished, obese elderly white woman who is lying flat in her bed. She is pleasant and cooperative. She is in no acute distress. She appears comfortable. She appears her stated age. HEENT: Normocephalic, atraumatic. PERRL. EOMI. Nonicteric sclerae. Hearing grossly intact. Oral mucous membranes are dry. There are no lesions. Cardiovascular: Irregular rhythm with frequent PVCs noted. Rate controlled. S1 , S2 present without murmurs, rubs, clicks, or gallops. There is no JVD. There is no peripheral edema. Radial and pedal pulses are palpable. Pulmonary : Symmetrical chest expansion without use of accessory muscles. Lungs clear to auscultation bilaterally without rhonchi, wheezes, or rubs. There is no digital clubbing or cyanosis. Abdomen: Bowel sounds noted in all quadrants. The abdomen is soft without tenderness to palpation. Musculoskeletal: The patient has full range of motion in the upper extremities. Left lower extremity with clean, dry, and intact dressing in place with cryo unit in place. Neuro: The patient is awake. She is alert and oriented x3. She is able to move all of her extremities. The patient is able to move digits distal to operative site. Pulses are intact. Sensation is not intact. ASSESSMENT AND PLAN: Ms. Ambriz is an 84-year-old female with past medical history of coronary artery disease, cardiomyopathy, hypertension, hyperlipidemia who presented [place] [facility] [place] for an elective left total knee arthroplasty. The patient will be admitted inpatient for: 1. Left total knee arthroplasty. Management per ortho team. 2. Hypertension. The patient appears to be hypotensive at this point of time. We will recheck blood pressure and assess the need for 1 L IV fluid bolus. We will hold her spironolactone and lisinopril. Metoprolol will have hold parameters in place. 3. Coronary artery disease. The patient has a history of NM with 2 stents placed in 2007. Her aspirin is currently being held. I would recommend restarting aspirin as soon as possible. 4. Hyperlipidemia. Continue simvastatin. 5. GERD. Continue omeprazole 20 b.i.d. 6. DVT prophylaxis. Per Ortho, apixaban 2.5 mg p.o. b.i.d. TIME SPENT: Approximately 35 minutes were spent on this consultation, greater than half that time was spent with the patient and her grandchildren obtaining history, performing physical, and reviewing the plan of care. The case has been reviewed with my attending, Dr. Diego, who is in agreement with the plan of care. GENEVA JOEL [id number]/[facility] #: [id number] SAJI
[2019-05-21] MEDS: traMADol TAB* 50 MG PO PRN ×2 (13:05→21:13)
[2019-05-21] MEDS: oxyCODONE TAB* 5 MG TAB PO PRN ×2 (13:57→22:15)
--- NOTE | 2019-05-21 15:04 | PN ---
Progress Note - Progress Note Date of Service: 05/21/19 Note: Patient seen OOB in chair s/p LTK arthroplasty. Family present. She is alert and oriented. Doing well, already walked today. Denies pain in left knee. Denies nausea, SOB, CP. She is asking if she can go home tomorrow. +DF left ankle, calf NT and soft. Dressing dry. Sensation and circulation intact distally.
[2019-05-21] MEDS: ceFAZolin 1 GM ADVAN(*) 1 GM in NS 0.9% 50 ML* 50 ML IVPB SCH (16:55)
[2019-05-21] MEDS: Ondansetron INJ* 2 MG/ML VIAL IV PRN (17:33)
--- NOTE | 2019-05-21 18:01 | OP ---
Operative Report - Blank - Operative Report Date of Operation: 05/21/19 Note: NAEEM ANTOINE 1935 Date of Surgery: 05/21/19 Janeen Decker MD Automotive Quality Engineer: Rosaline BEAN did help throughout the procedure with preparation of the knee, wound retraction, manipulation of the knee, and wound closure. Anesthesiologist: Nina Dawson MD Anesthesia Type: Spinal Preoperative Diagnosis: Left severe degenerative osteoarthritis of the knee Postoperative Diagnosis: As above Procedure Performed: Left Total Knee Arthroplasty Tourniquet time: 41 minutes Complications: None Specimen: Bone and cartilage from the left knee joint sent to pathology. Hardware Used: Cemented Dc and Nephew total knee hardware was used - For the femur a size 4 left narrow legion posterior stabilized femoral component, for the tibia a size 3 left eyl II tibial baseplate, for the insert a size 9mm posterior stabilized constrained articular polyethylene insert, and for the patella a size 29 3-peg all poly patella. Brief History/Indication: NAEEM ANTOINE was known in clinic and had a history of severe left knee pain and swelling. She failed conservative treatment with anti-inflammatories, pain pills, intra-articular injections and physical therapy. She elected to undergo left total knee arthroplasty due to continued pain and decreased quality of life. Radiographs showed severe end stage osteoarthritis of the knee with bone on bone contact. Informed consent was obtained from the patient. She understood the risks of surgery included but were not limited to: bleeding, infection, damage to nearby structures, intraoperative fracture, nerve palsy, failure of the hardware, early loosening, knee stiffness or loss of motion, anesthesia complications, stroke, heart attack , blood clot and . She wished to proceed. Intra-Operative Findings: Intraoperatively the patient was noted to have severe loss of cartilage in all 3 compartments of the knee. She had 15 degree valgus deformity to start the case and extensive osteophyted formation. She had laxity of the MCL although it was intact. Description of the Procedure: NAEEM ANTOINE was identified in the preanesthesia unit. Her left knee was marked as the correct operative side. Informed consent was signed and placed in the chart. The patient was taken to the operating room and placed under anesthesia without complication. A mauro catheter was placed. A tourniquet was placed on the left thigh. The left lower extremity was prepped and draped in the usual sterile fashion. Preoperative time-out was made to correctly identify the patient, side and site. Appropriate intraoperative antibiotics were given within one hour of incision. Tourniquet was inflated. A midline incision was made and carried sharply down to the extensor mechanism. A new 10 blade was used to make a standard medial parapatellar arthrotomy. The patella was subluxed laterally. Electrocautery was used to dissect soft tissue off the superomedial tibia to the midsagittal plane. The knee was flexed up. The anterior horn of the lateral meniscus and the ACL were sharply incised. A drill was used to enter the distal femur. The intramedullary distal femoral cutting guide was pinned on the distal femur. The oscillating saw was used to make the distal femoral cut. The external rotation guide was pinned on the distal femur and the distal femur was sized to a size 4. The size 4 multi-cutting jig was pinned on the distal femur. The oscillating saw was used to make the appropriate 4 chamfer cuts. Next the PCL was completely released. The extramedullary tibial cutting guide was pinned on the proximal tibia and the oscillating saw was used to make the proximal tibial cut perpendicular to the mechanical axis of the tibia. The bone was carefully removed. The knee was brought out into full extension. The spacer block was placed and had excellent fit with the knee in full extension. The medial and lateral ligaments were well balanced. The flexion and extension gaps were well balanced. The knee was flexed up. Lamina hvac tech was placed both medially and laterally. Any remaining meniscus was removed with electrocautery. Curved osteotome was used to remove any posterior osteophytes. The tibial tray and drop lay were placed and confirmed a satisfactory tibial cut. The size 4 left narrow femoral trial was impacted onto the distal femur. This trial had excellent fit and stability. The box for the posterior stabilized implant was prepared using a box cut osteotome and a reamer. Next a tibial tray trial and 9 mm insert trial was placed. The knee was taken through a range of motion and had full extension to 130 degrees of flexion. Patellofemoral tracking was satisfactory. The patella was inverted and sized to a size 29. Three peg holes were drilled through the size 29 drill guide. The trial patella was placed and the knee was taken through a range of motion. There was satisfactory patellofemoral tracking. All trials were removed. The tibia was subluxed anteriorly and sized to a size 3. The proximal tibial was prepared with a size 3 keel punch. All bony cut surfaces were irrigated with sterile saline and dried. Final implants were cemented into place starting with the tibia, followed by the femur, and last the patella. A 9 mm insert trial was placed and the knee was brought into full extension. Tourniquet was turned down and the knee was copiously irrigated with sterile saline. Electrocautery was used to obtain meticulous hemostasis. Once the cement had fully cured, the insert trial was removed. Any excess cement was removed from around the hardware and capsule. Final insert chosen was a 9 mm posterior stabilized/constrained Ely II articular insert size 3-4. Stability of the insert was checked and noted to be stable. The extensor mechanism was closed using number 1 vicryls. The rest of the incision was closed in a layered fashion using 0 and 2-0 vicryls. The skin was closed using 3-0 nylon suture. Sterile xeroform, 4x4s and webril were used to cover the incision. Shawn wrap and cold pack were used to cover the dressings. The patients anesthesia was reversed without difficulty. She was taken to the PACU in stable condition. Intended weight-bearing will be as tolerated.
[2019-05-21] MEDS: MINS PO SCH (19:58)
[2019-05-21] MEDS: MULTIVITAMINS AREDS2 PO SCH (19:58)
[2019-05-21] MEDS: Acetaminophen TAB* 325 MG PO SCH (20:00)
[2019-05-21] MEDS ORDERED: Lisinopril TAB* 10 MG PO SCH (21:00)
[2019-05-21] MEDS ORDERED: Metoprolol Succinate XL TAB* 100 MG PO SCH (21:00)
[2019-05-21] MEDS: Metoprolol Succinate XL TAB* 50 MG PO SCH (21:13)
[2019-05-21] MEDS: Magnesium Hydroxide LIQ* 30 ML UDC PO SCH (21:16)
[2019-05-21] MEDS: Atorvastatin* 20 MG TAB PO SCH (22:14)
[2019-05-21] MEDS: Docusate CAP* 100 MG PO SCH (22:14)
[2019-05-21] MEDS: Pantoprazole TAB * 40 MG TAB PO SCH (22:15)
[2019-05-22] MEDS: ceFAZolin 1 GM ADVAN(*) 1 GM in NS 0.9% 50 ML* 50 ML IVPB SCH ×2 (00:07→09:05)
[2019-05-22] MEDS: Acetaminophen TAB* 325 MG PO SCH ×5 (03:51→20:45)
[2019-05-22] MEDS: oxyCODONE TAB* 5 MG TAB PO PRN (05:03)
[2019-05-22 06:47] LABS: Hematocrit 30 % (35-47); Hemoglobin 10.6 g/dL (12.0-16.0); Mean Platelet Volume 8.1 fL (7.4-10.4); Platelet Count 222 10^3/uL (150-450)
[2019-05-22 07:34] LABS: Potassium 4.3 mmol/L (3.5-5.0)
[2019-05-22 07:39] LABS: BUN/Creatinine Ratio 21.2 (8-20); EGFR African American 77.1 (>60); EGFR Non-African American 63.7 (>60)
[2019-05-22] MEDS ORDERED: Spironolactone TAB* 25 MG PO SCH (09:00)
[2019-05-22] MEDS: Magnesium Hydroxide LIQ* 30 ML UDC PO SCH ×2 (09:02→20:37)
[2019-05-22] MEDS: Apixaban* 2.5 MG TAB PO SCH ×2 (09:03→20:46)
[2019-05-22] MEDS: traMADol TAB* 50 MG PO PRN ×2 (09:03→17:45)
[2019-05-22] MEDS: Docusate CAP* 100 MG PO SCH ×2 (09:03→20:46)
[2019-05-22] MEDS: Pantoprazole TAB * 40 MG TAB PO SCH ×2 (09:04→20:38)
[2019-05-22] MEDS: Cyanocobalamin TAB* 500 MCG PO SCH (09:04)
[2019-05-22] MEDS: MINS PO SCH ×2 (10:11→20:38)
[2019-05-22] MEDS: Lactated Ringers 1000 ML Bag* 1,000 ML IV SCH (10:11)
[2019-05-22] MEDS: MULTIVITAMINS AREDS2 PO SCH ×2 (10:11→20:38)
--- NOTE | 2019-05-22 10:58 | PN ---
Progress Note - Progress Note Date of Service: 05/22/19 SOAP: Subjective: [] Pt seen OOB in chair. She is feeling well, her knee pain is well controlled. She had more difficulty with PT than she anticipated and is open to PMRU. Denies any chest pain, shortness of breath, dizziness or nausea. Objective: []Gen: NAD, appears well LLE: Left knee dressing CDI, thigh soft, DP2+, DF/PF intact, sensation intact to light touch distally Calves supple and nontender without erythema, edema or palpable cords Assessment: []POD 1 SP LTK Plan: []WBAT PT/OT eliquis 2.5 mg po BID x 30 days post op PMRU referral in Primary pain control with tylenol, use tramadol if not controlled with tylenol, try to avoid oxycodone/ percocet Vital Signs Temp 97.4 F 05/22/19 07:10 Pulse 69 05/22/19 09:24 Resp 18 05/22/19 10:42 BP 120/83 05/22/19 09:24 Pulse Ox 97 05/22/19 07:10 Intake & Output 05/21/19 05/22/19 05/22/19 18:59 06:59 18:59 Intake Total 3200 1407 1274 Output Total 2150 200 Balance 1050 1207 1274 Intake: IV Fluids 2400 1007 979 ABX - CEFAZOLIN 55 LR 2300 952 979 NS 100ML, Cefazolin 2G 100 IVPB 55 ABX - CEFAZOLIN 55 Oral 800 400 240 Output: Urine 200 Feliciano 1750 0 Residual 0 Feliciano 16 Fr 0 Emesis 250 Estimated Blood Loss 150 Laboratory Last Values Hgb 10.6 g/dL (12.0-16.0) L 05/22/19 06:21 Hct 30 % (35-47) L 05/22/19 06:21 Plt Count 222 10^3/uL (150-450) 05/22/19 06:21 MPV 8.1 fL (7.4-10.4) 05/22/19 06:21 Sodium 138 mmol/L (135-145) 05/22/19 06:21 Potassium 4.3 mmol/L (3.5-5.0) 05/22/19 06:21 Chloride 106 mmol/L (101-111) 05/22/19 06:21 Carbon Dioxide 22 mmol/L (22-32) 05/22/19 06:21 Anion Gap 10 mmol/L (2-11) 05/22/19 06:21 BUN 18 mg/dL (6-24) 05/22/19 06:21 Creatinine 0.85 mg/dL (0.51-0.95) 05/22/19 06:21 Est GFR ( Amer) 77.1 (>60) 05/22/19 06:21 Est GFR (Non-Af Amer) 63.7 (>60) 05/22/19 06:21 BUN/Creatinine Ratio 21.2 (8-20) H 05/22/19 06:21 Glucose 119 mg/dL (70-100) H 05/22/19 06:21 Calcium 9.0 mg/dL (8.6-10.3) 05/22/19 06:21
[2019-05-22] MEDS ORDERED: oxyCODONE TAB* 5 MG TAB PO PRN (11:03)
--- NOTE | 2019-05-22 13:10 | PN ---
Subjective Date of Service: 05/22/19 Interval History: Pt states she is feeling a little confused today. She states she has a headache. She noted nausea earlier, but this has passed. She continues to have pain in the knee that she rates at 5/10. She denies CP, SOB, abd pain, n/v /d, calf pain. She states she is eating/drinking well. She has been up with PT. She notes burning with urination, and nursing reports urinary retention today. Objective Active Medications: Acetaminophen (Tylenol Tab*) 650 mg PO Q4H ANDRY Apixaban (Eliquis*) 2.5 mg PO BID ANDRY Atorvastatin Calcium (Lipitor*) 20 mg PO BEDTIME ANDRY Bisacodyl (Dulcolax Supp*) 10 mg TX DAILY PRN Cyanocobalamin (Vitamin B12 Tab*) 1,000 mcg PO QAM ANDRY Cyclobenzaprine HCl (Flexeril Tab*) 10 mg PO TID PRN Diphenhydramine HCl (Benadryl Iv*) 25 mg IV Q6H PRN Diphenhydramine HCl (Benadryl Po*) 25 mg PO Q6H PRN Docusate Sodium (Colace Cap*) 100 mg PO BID ANDRY Lactated Ringer's (Lactated Ringers 1000 Ml Bag*) 1,000 mls @ 100 mls/hr IV PER RATE ANDRY Lactulose (Lactulose*) 30 ml PO Q6H PRN Magnesium Hydroxide (Milk Of Magnesia Liq*) 30 ml PO BID ANDRY Magnesium Hydroxide (Milk Of Magnesia Liq*) 30 ml PO Q6H PRN Metoprolol Succinate (Toprol Xl Tab*) 50 mg PO BEDTIME ANDRY Morphine Sulfate (Morphine 4 Mg/Ml Vial (1 Ml)) 2 mg IV Q2H PRN Multivitamins/Minerals (Preservision Areds 2) 1 cap PO BID ANDRY Nitroglycerin (Nitroglycerin Tab 0.4 Mg*) 0.4 mg SL Q5M PRN Ondansetron HCl (Zofran Inj*) 4 mg IV Q6H PRN Oxycodone HCl (Roxycodone Tab*) 5 mg PO Q4H PRN Pantoprazole Sodium (Protonix Tab*) 40 mg PO BID ANDRY Polyethylene Glycol/Electrolytes (Miralax*) 17 gm PO DAILY PRN Tramadol HCl (Ultram*) 50 mg PO Q6H PRN Vital Signs: Temp Pulse Resp BP Pulse Ox 97.9 F 66 18 122/56 94 05/22/19 11:07 05/22/19 11:30 05/22/19 11:07 05/22/19 11:07 05/22/19 11:07 Oxygen Devices in Use Now: Nasal Cannula Appearance: Pt is sitting in chair with LE elevated. She is in no acute distress, and is pleasant and cooperative. Eyes: No Scleral Icterus, PERRLA Ears/Nose/Mouth/Throat: NL Teeth, Lips, Gums, Clear Oropharnyx, Mucous Membranes Moist Neck: NL Appearance and Movements; NL JVP, Trachea Midline Respiratory: Symmetrical Chest Expansion and Respiratory Effort, Clear to Auscultation Cardiovascular: NL Sounds; No Murmurs; No JVD, - - Regular rhythm, frequent PVCs ; trace b/l LE edema Abdominal: NL Sounds; No Tenderness; No Distention, No Hepatosplenomegaly Extremities: No Clubbing, Cyanosis, - - L knee with CDI dressing in place. Sensation intact. Pt able to move distal extremities. Pulses palpable. Neurological: Alert and Oriented x 3 Result Diagrams: 05/22/19 06:21 05/22/19 06:21 Assess/Plan/Problems-Billing Assessment: 84 PMHx CAD, cardiomyopathy, HTN, HLD, GERD, OA presents for elective LTKA. - Patient Problems (1) Status post left knee surgery Comment: -POD1 -Management per ortho (2) Confusion Comment: -Patient has mild confusion, but is a/o x3. She is repeating herself and sometimes forgetful. -Pt reports dysuria, retention; UA shows 3+ LE. Will hold off on treatment at this time, as I do not suspect UTI with no nitrates, bacteria in UA -I suspect this is at least partially due to post-op status and use of opiates -Try to limit opiates while still managing pain -We will continue to monitor for need for further studies or intervention (3) Urinary retention Comment: -Feliciano removal overnight. Pt had some urinary retention after void; also c/o dysuria -UA ordered shows 3+ LE without nitrates or bacteria -Will not treat for UTI at this time, as suspicion is low without presence of bacteria, nitrates -Will continue bladder scans to ensure emptying of bladder (4) Hypertension Comment: -Well controlled -Continue metoprolol with hold parameters -Continue to hold spironolactone, lisinopril (5) CAD (coronary artery disease) Comment: -Restart aspirin today (6) Hyperlipidemia Comment: -Continue atorvastatin (7) GERD (gastroesophageal reflux disease) Comment: -Continue pantoprazole (8) PVC (premature ventricular contraction) Comment: -Asymptomatic; noted on tele (9) DVT prophylaxis Comment: -Per ortho- [place] (10) Full code status Status and Disposition: Inpatient. Discharge per ortho.
[2019-05-22] MEDS: Aspirin 81 mg CHEW TAB* 81 MG TAB.CHEW PO SCH (14:22)
[2019-05-22 15:58] LABS: Urine Appearance Cloudy; Urine Bacteria Absent (Absent); Urine Bilirubin Negative (Negative); Urine Blood Negative (Negative); Urine Color Yellow; Urine Glucose Negative (Negative); Urine Ketones Trace (Negative); Urine Nitrite Negative (Negative); Urine Protein 1+(30 mg/dL) (Negative); Urine Red Blood Cell 3+(>10/hpf) (Absent); Urine Specific Gravity 1.032 (1.010-1.030); Urine Squamous Epithelial Cell Present (Absent); Urine Urobilinogen Negative (Negative); Urine White Blood Cell 3+(>20/hpf) (Absent)
[2019-05-22] MEDS ORDERED: NS 0.9% 1000 ML** 1,000 ML IV ONE (16:03)
[2019-05-22 16:59] LABS: CO2 Carbon Dioxide 24 mmol/L (22-32); Calcium 8.7 mg/dL (8.6-10.3); Chloride 103 mmol/L (101-111); Magnesium 2.2 mg/dL (1.9-2.7); Sodium 135 mmol/L (135-145)
[2019-05-22 17:02] LABS: Anion Gap 8 mmol/L (2-11)
[2019-05-22 17:05] LABS: BUN/Creatinine Ratio 19.6 (8-20); Blood Urea Nitrogen 19 mg/dL (6-24); EGFR African American 66.2 (>60); EGFR Non-African American 54.7 (>60); Glucose 126 mg/dL (70-100)
[2019-05-22] MEDS: Metoprolol Succinate XL TAB* 50 MG PO SCH (20:44)
[2019-05-22] MEDS: Atorvastatin* 20 MG TAB PO SCH (20:45)
[2019-05-23] MEDS: traMADol TAB* 50 MG PO PRN ×2 (00:03→11:57)
[2019-05-23] MEDS: Acetaminophen TAB* 325 MG PO SCH ×4 (02:33→13:47)
[2019-05-23 06:07] LABS: Hematocrit 27 % (35-47); Hemoglobin 9.3 g/dL (12.0-16.0); Mean Platelet Volume 8.1 fL (7.4-10.4); Platelet Count 209 10^3/uL (150-450)
[2019-05-23] MEDS: Ondansetron INJ* 2 MG/ML VIAL IV PRN (08:06)
[2019-05-23] MEDS: Magnesium Hydroxide LIQ* 30 ML UDC PO SCH (08:17)
[2019-05-23] MEDS: Cyanocobalamin TAB* 500 MCG PO SCH (08:18)
[2019-05-23] MEDS: Aspirin 81 mg CHEW TAB* 81 MG TAB.CHEW PO SCH (08:18)
[2019-05-23] MEDS: MINS PO SCH (08:19)
[2019-05-23] MEDS: MULTIVITAMINS AREDS2 PO SCH (08:19)
[2019-05-23] MEDS: Apixaban* 2.5 MG TAB PO SCH (08:19)
[2019-05-23] MEDS: Docusate CAP* 100 MG PO SCH (08:19)
[2019-05-23] MEDS: Pantoprazole TAB * 40 MG TAB PO SCH (08:20)
--- NOTE | 2019-05-23 10:09 | DS ---
Orthopedic Discharge Summary - Discharge Summary Date of Admission:05/21/19 Date of Discharge: 05/23/19 Date of Surgery: 05/21/19 Attending Orthopedic Provider: Dr Decker Pre-operative Diagnosis: left knee osteoarthritis Operative Procedure: left total knee replacement Disposition of Patient: [facility] Condition of Patient: stable History: NAEEM ANTOINE is a 84 year old F with years of increasingly severe left knee pain. Patient has failed conservative management and has elected to undergo a left total knee replacement Hospital Course: NAEEM was admitted to [facility] on 05/21/19. Patient underwent a left total knee replacement without complication followed by a brief recovery in PACU and transfer to the Short Stay Surgical Unit in stable condition. Our hospitalist service, physical therapy and occupational therapy also participated in this patients care. Post-op day 1: patient was alert and in no acute distress. Dressing was clean, dry and intact. Operative extremity dorsiflexion and plantarflexion intact, sensation intact to light touch distally, DP2+. Post-op day two: dressing was changed by Dr Decker, incision was clean, dry and intact. Patient was deemed to be medically and orthopedically stable for discharge. Physical therapy goals were met. Home Medications Medication Instructions Recorded Confirmed Type Metoprolol Succinate XL TAB* 50 mg PO BEDTIME 09/25/13 05/21/19 History [Toprol XL TAB*] Acetaminophen [Tylenol Extra 1,000 mg PO TID PRN 06/28/18 05/21/19 History Strength] Cyanocobalamin TAB* [Vitamin B12 1,000 mcg PO QAM 06/28/18 05/21/19 History TAB*] Lisinopril TAB* [Prinivil TAB 10 30 mg PO BEDTIME 06/28/18 05/21/19 History MG*] Nitroglycerin TAB 0.4 MG* 0.4 mg SL Q5M PRN 06/28/18 05/08/19 History Omeprazole CAP (NF) [Prilosec CAP* 20 mg PO BID 06/28/18 05/21/19 History 20 MG] Simvastatin (NF) [Zocor (NF)] 40 mg PO BEDTIME 06/28/18 05/21/19 History Aspirin [Aspir-Low] 81 mg PO QAM 05/08/19 05/08/19 History Spironolactone 12.5 mg PO QAM 05/08/19 05/21/19 History Vit C/E/Zn/Coppr/Lutein/Zeaxan 1 each PO BID 05/08/19 05/21/19 History [Preservision Areds 2 Softgel] Acetaminophen TAB* [Tylenol TAB*] 650 mg PO Q4H tab 05/23/19 Rx Apixaban* [Eliquis*] 2.5 mg PO BID #0 tab 05/23/19 Rx Docusate CAP* [Colace Cap*] 100 mg PO BID #0 cap 05/23/19 Rx oxyCODONE TAB* [Roxycodone TAB 5 5 mg PO Q4H PRN tab MDD 4 05/23/19 Rx mg*] traMADol TAB* [Ultram*] 50 mg PO Q6H PRN tab MDD 8 05/23/19 Rx Discharge Instructions following Orthopedic Surgery: Activity: * Weight Bearing as tolerated * Continue physical therapy and occupational therapy exercises as shown * Continue PT with PMRU Wound care: * OK to shower on post-op day 3, no bathing, swimming, or submerging wound. * Use gentle soap, pat dry. Cover with gauze, ANA wrap or tape. * PMRU nurse to do wound checks. Call Orthopedic office for: * Increased drainage * Redness * Increased pain * Fever Go to ER with shortness of breath or chest pain. Diet: * Regular diet * Increase fluids and fiber to prevent constipation. * Continue to use stool softeners, call office if no bowel motion within 48 hours. Medications See Home Medication List in your packet for medications that you should take after discharge. DVT Prophylaxis: This medication increases bleeding tendency Eliquis Dosin.5 mg, 1 tab every 12 hours x 30 days post op Pain Control: Please use tylenol for primary pain control For moderate pain not controlled with tylenol can use tramadol 50 mg 1-2 tabs by mouth every 6 hours as needed for pain. Maximum of 8 tabs per day. Hold for sedation, wean off as soon as pain allows Antibiotics are required prior to any dental work. FOLLOW UP: Follow up with [Jeronimo] Within 10-14 days, call for appointment Please call our office with any questions or concerns ([phone])
[2019-05-23 11:22] VITALS: BP 142/60
[2019-05-23 12:01] LABS: Calcium 8.9 mg/dL (8.6-10.3); Potassium 3.9 mmol/L (3.5-5.0)
[2019-05-23 12:07] LABS: BUN/Creatinine Ratio 18.3 (8-20); EGFR African American 94.9 (>60); EGFR Non-African American 78.4 (>60)
[2019-05-23 12:13] LABS: Troponin I 0.04 ng/mL (<0.04)
[2019-05-23 12:16] LABS: Magnesium 2.3 mg/dL (1.9-2.7)
--- NOTE | 2019-05-23 12:17 | CONSULT ---
Subjective Date of Service: 05/23/19 Interval History: Date of consult 05/23/2019 Service: Ortho Primary Care Physician: Anne Dasilva MD Director Data Analytics: Dr. Proctor CC: Elective knee replacement Reason for consult NSVT HPI: Lisa Ambriz is an 84 year old woman with a history as below. She had an uncomplicated knee replacement 2 days ago. Her grandson and his (who patient lives with) are at bedside. Patient has had issues with delirium after surgery but this is improving. She denies any GI discomfort, chest discomfort or dyspnea. She occasionally has palpitations lasting for a second or two in bed at night. She has no sustained palpitations or any syncope in many years. She was found with 3 episodes of NSVT monomorphic up to 9 beats and asymptomatic (at least one was sleeping). She is now ready to go to [facility] for rehab. Allergies: Latex, Reaction: itch - per patient allergy list reviewed on 04/16/2019 PMH: CAD s/p MA with mildly reduced LVEF Hyperlipidemia Hypertension Gastroesophageal Reflux Disease (GERD) Surgical Hx: Total Replacement, Knee, cardiac stents FH: Hypertension - brother Diabetes - mother Heart Disease - mother of MA MA - brother. SH: Marital: ..Occupation: Retired. Personal Habits: Smoking: Patient is a former smoker..Alcohol: Medications Active Medications: Acetaminophen (Tylenol Tab*) 650 mg PO Q4H [facility] Last Admin: 05/23/19 08:16 Dose: 650 mg Apixaban (Eliquis*) 2.5 mg PO BID [facility] Last Admin: 05/23/19 08:19 Dose: 2.5 mg Aspirin (Aspirin 81 Mg Chew Tab*) 81 mg PO DAILY [facility] Last Admin: 05/23/19 08:18 Dose: 81 mg Atorvastatin Calcium (Lipitor*) 20 mg PO BEDTIME [facility] Last Admin: 05/22/19 20:45 Dose: 20 mg Bisacodyl (Dulcolax Supp*) 10 mg OK DAILY PRN PRN Reason: constipation Cyanocobalamin (Vitamin B12 Tab*) 1,000 mcg PO QAM [facility] Last Admin: 05/23/19 08:18 Dose: 1,000 mcg Cyclobenzaprine HCl (Flexeril Tab*) 10 mg PO TID PRN PRN Reason: SPASMS Last Admin: 05/21/19 21:13 Dose: 10 mg Diphenhydramine HCl (Benadryl Iv*) 25 mg IV Q6H PRN PRN Reason: itching Diphenhydramine HCl (Benadryl Po*) 25 mg PO Q6H PRN PRN Reason: INSOMNIA Docusate Sodium (Colace Cap*) 100 mg PO BID [facility] Last Admin: 05/23/19 08:19 Dose: 100 mg Lactated Ringer's (Lactated Ringers 1000 Ml Bag*) 1,000 mls @ 100 mls/hr IV PER RATE [facility] Last Admin: 05/22/19 10:11 Dose: 100 mls/hr Lactulose (Lactulose*) 30 ml PO Q6H PRN PRN Reason: constipation Magnesium Hydroxide (Milk Of Magnesia Liq*) 30 ml PO BID [facility] Last Admin: 05/23/19 08:17 Dose: 30 ml Magnesium Hydroxide (Milk Of Magnesia Liq*) 30 ml PO Q6H PRN PRN Reason: constipation Metoprolol Succinate (Toprol Xl Tab*) 75 mg PO BEDTIME [facility] Morphine Sulfate (Morphine 4 Mg/Ml Vial (1 Ml)) 2 mg IV Q2H PRN PRN Reason: PAIN Multivitamins/Minerals (Preservision Areds 2) 1 cap PO BID [facility] Last Admin: 05/23/19 08:19 Dose: 1 cap Nitroglycerin (Nitroglycerin Tab 0.4 Mg*) 0.4 mg SL Q5M PRN PRN Reason: PAIN - CHEST Ondansetron HCl (Zofran Inj*) 4 mg IV Q6H PRN PRN Reason: nausea Last Admin: 05/23/19 08:06 Dose: 4 mg Oxycodone HCl (Roxycodone Tab*) 5 mg PO Q4H PRN PRN Reason: breakthru pain Pantoprazole Sodium (Protonix Tab*) 40 mg PO BID [facility] Last Admin: 05/23/19 08:20 Dose: 40 mg Polyethylene Glycol/Electrolytes (Miralax*) 17 gm PO DAILY PRN PRN Reason: Constipation Tramadol HCl (Ultram*) 50 mg PO Q6H PRN PRN Reason: PAIN - MODERATE Last Admin: 05/23/19 11:57 Dose: 50 mg Home Medications: Metoprolol Succinate XL TAB* [Toprol XL TAB*] 50 mg PO BEDTIME 09/25/13 [ History Confirmed 05/21/19] Acetaminophen [Tylenol Extra Strength] 1,000 mg PO TID PRN 06/28/18 [History Confirmed 05/21/19] Cyanocobalamin TAB* [Vitamin B12 TAB*] 1,000 mcg PO QAM 06/28/18 [History Confirmed 05/21/19] Lisinopril TAB* [Prinivil TAB 10 MG*] 30 mg PO BEDTIME 06/28/18 [History Confirmed 05/21/19] Nitroglycerin TAB 0.4 MG* 0.4 mg SL Q5M PRN 06/28/18 [History Confirmed 05/08/19 ] Omeprazole CAP (NF) [Prilosec CAP* 20 MG] 20 mg PO BID 06/28/18 [History Confirmed 05/21/19] Simvastatin (NF) [Zocor (NF)] 40 mg PO BEDTIME 06/28/18 [History Confirmed 05/21] Aspirin [Aspir-Low] 81 mg PO QAM 05/08/19 [History Confirmed 05/08/19] Spironolactone 12.5 mg PO QAM 05/08/19 [History Confirmed 05/21/19] Vit C/E/Zn/Coppr/Lutein/Zeaxan [Preservision Areds 2 Softgel] 1 each PO BID [History Confirmed 05/21/19] Acetaminophen TAB* [Tylenol TAB*] 650 mg PO Q4H tab 05/23/19 [Rx] Apixaban* [Eliquis*] 2.5 mg PO BID #0 tab 05/23/19 [Rx] Docusate CAP* [Colace Cap*] 100 mg PO BID #0 cap 05/23/19 [Rx] oxyCODONE TAB* [Roxycodone TAB 5 mg*] 5 mg PO Q4H PRN tab MDD 4 05/23/19 [Rx] traMADol TAB* [Ultram*] 50 mg PO Q6H PRN tab MDD 8 05/23/19 [Rx] Review of Systems - Measurements Intake and Output: Intake and Output Last 24 Hours 05/21/19 05/22/19 05/23/19 05/24/19 06:59 06:59 06:59 06:59 Intake Total 4607 3174 2183 Output Total 2350 640 625 Balance 2257 2534 1558 Weight 175 lb Intake: IV Fluids 3407 979 993 ABX - CEFAZOLIN 55 LR 3252 979 993 NS 100ML, Cefazolin 2G 100 IVPB 55 990 ABX - CEFAZOLIN 55 NS (0.9%) 990 Oral 1200 2140 200 Output: Urine 200 640 625 Feliciano 1750 Residual 0 Feliciano 16 Fr 0 Emesis 250 Estimated Blood Loss 150 Other: Estimated Void Small Small # Bowel Movements 0 - Review of Systems Constitutional Symptoms: Negative: Weight Gain, Weight Loss, Weakness, Fever, Night Sweats Dermatology: Negative: Rash, Skin Lesions HEENT: Negative: Change in Hearing, Vertigo Eyes: Negative: Change in Vision, Double Vision Thyroid: Negative: Cold Intolerance, Heat Intolerance, Weight Loss, Weight Gain Pulmonary: Negative: Cough, Sputum, Hemoptysis, Wheezing, Respiratory Distress, Shortness of Breath, Exercise Intolerance Cardiology: Positive: Palpitations Negative: Chest Pain, Shortness of Breath, Swelling of Ankles, Peripheral Vascular Dis, Edema, Faintness, Syncope, Claudication, Paroxysmal Nocturnal Dyspnea, Orthopnea Gastroenterology: Negative: Abdominal Pain, Nausea, Vomiting, Anorexia, Blood in Stools, Haematemesis, Melena Genital - Urinary: Negative: Dysuria, Hematuria, Polyuria Musculoskeletal: Negative: Joint Pain, Joint Stiffness Endocrinology: Negative: Obesity, Diabetes, Polydipsia, Polyuria Hematologic/Lymphatic: Positive: Use of Anticoagulant, Use of Antiplatelet Drugs Neurology: Negative: Change in Speech, Change in Sphincter Function, Hx of Stroke\TIA, Hx Seizures Psychiatry: Negative: Unusual Anxiety, Suicidal Ideation Allergic/Immunologic: Negative: Hx HIV, Immunocompromise Review of Systems Statement: All other review of systems negative, unless stated above. Objective Vital Signs: Temp Pulse Resp BP Pulse Ox 98.8 F 75 18 142/60 95 05/23/19 11:21 05/23/19 11:21 05/23/19 11:57 05/23/19 11:21 05/23/19 11:21 Oxygen Devices in Use Now: None Appearance: nad, pleasant Ears/Nose/Mouth/Throat: Clear Oropharnyx Neck: NL Appearance and Movements; NL JVP, Trachea Midline Respiratory: Symmetrical Chest Expansion and Respiratory Effort, Clear to Auscultation Cardiovascular: NL Sounds; No Murmurs; No JVD, RRR, No Edema Abdominal: NL Sounds; No Tenderness; No Distention Extremities: No Edema, No Clubbing, Cyanosis, - - left knee wrapped Skin: No Rash or Ulcers Neurological: Alert and Oriented x 3, - - somewhat inattentive but overall appropriate Laboratory Results: 05/23/19 05:42 05/23/19 11:40 mg 2.3 05/23/19 11:40 Troponin I 0.04 H* Diagnostic Imaging: Cardiac Testin04/2019 echo: LVEf 45-50% with basal inferior/inferolateral akinesis LA moderately dilated No significant valvualr abnormalities noted lexiscan stress 04/2019: No chest discomfort or ischemic ekg changes. small to moderate sized inferior/inferolateral wall infarct, Holter Monitor - (04/27/2015) NSR, 44-133 bpm, rare PAC's + PVC's. Rare V bigeminy. 15 beats runs of SVT. No log to correlate with activity. No sustained tachyarrhythmias. 05/13/15 addendum: log notes several episodes of dizziness , lightheaded, correlates with NSR 75 bpm. Notes GI cramping: correlates with NSR 60 bpm. Holter Monitor - (08/11/2014) 42-98 bpm, SVT up to 6 seconds, asymptomatic. Holter Monitor - (09/14/2009) Frequent supraventricular ectopy and nonsustained atrial tachycardia. No ventricular tachyarrhythmia. Cardiac Procedures: Cardiac Catheterization - (07/13/2015) Mild nonobstructive coronary artery disease. Patent stents in the proximal circumflex artery. Cardiac Catheterization - (09/11/2009) PW scar, EF 40%, Cx stent patent, mild irregularities elsewhere. Cardiac Catheterization - (10/07/2013) ef 45%, LAD 20%, Cx stent stable. EKG Data: ekg 05/23/2019 NSR, old IWMI, PVC with RBBB morphology v1-v3 Assessment/Plan 1. NSVT - Asymptomatic, monomorphic - K 3.9, mg 2.3 - Likely secondary to #2 in addition to post-operative adrenergic stress 2. Prior MA/ischemic CM - LVEF 45% - No ischemia on recent lexiscan stress MPI - No evidence of ACS, mildly detectable troponin anticipated 3. POD 3 knee replacement 4. HTN - Increase toprol from 50 to 75 mg po QHS - Patient can go to [facility] for rehab from a cardiac standpoint Thank you for allowing me to participate in the cardiovascular care of this patient. Please do not hesitate to contact me with questions or concerns.
--- NOTE | 2019-05-23 17:28 | PN ---
Subjective Date of Service: 05/23/19 Interval History: Patient with no complaints sitting in the chair. Denies chest pain or shortness of breath. denies abd pain n/v/d. Denies fever or chills. Patient was noted to have non-sustained v tach on the monitor yesterday and today. Patient denies dizziness or lightheadedness associated with these episodes. Cardiology was consulted and STAT BMP, Magnesium and troponin were ordered Family History: Unchanged from Admission Social History: Unchanged from Admission Past Medical History: Unchanged from Admission Objective Vital Signs - 8 hr 05/23/19 05/23/19 05/23/19 10:56 11:21 11:57 Temperature 98.8 F 98.8 F Pulse Rate 71 75 Respiratory 16 16 18 Rate Blood Pressure 128/53 142/60 (mmHg) O2 Sat by Pulse 94 95 Oximetry Oxygen Devices in Use Now: None Appearance: alert , no acute distress Eyes: No Scleral Icterus Ears/Nose/Mouth/Throat: Clear Oropharnyx, Mucous Membranes Moist Neck: NL Appearance and Movements; NL JVP, Trachea Midline Respiratory: Symmetrical Chest Expansion and Respiratory Effort, Clear to Auscultation Cardiovascular: NL Sounds; No Murmurs; No JVD, No Edema Abdominal: NL Sounds; No Tenderness; No Distention Extremities: No Clubbing, Cyanosis, - - mild swelling to left lower leg, dressing dry and intact. Skin: No Rash or Ulcers, - - drssing dry and intact to left knee Neurological: Alert and Oriented x 3 Nutrition: Taking PO's Result Diagrams: 05/23/19 05:42 05/23/19 11:40 Microbiology and Other Data: Microbiology 05/22/19 13:45 Urine Culture - Final Urine Assess/Plan/Problems-Billing Assessment: 84 PMHx CAD, cardiomyopathy, HTN, HLD, GERD, OA presents for elective LTKA. - Patient Problems (1) Status post total left knee replacement Status: Acute Code(s): Z96.652 - PRESENCE OF LEFT ARTIFICIAL KNEE JOINT SNOMED Code(s): 8954537430830 Comment: managment per orthopedics PT/OT per Orthopedics pain managment per ortho dvt prop per ortho (2) PVC (premature ventricular contraction) Status: Acute Code(s): I49.3 - VENTRICULAR PREMATURE DEPOLARIZATION SNOMED Code(s): 12857228 Comment: -Asymptomatic; Patient with 8 and 9 beat runs of v-tach noted on the monitor yesterday and today - cardiology consulted - suspects this is related to post-operative adrenergic stress recommended increasing toprol to 75mg at hs Mild elevation in troponin 0.04-anticipated likely d/t surgery and demand ischemia magnesium and potassium WNL (3) CAD (coronary artery disease) Status: Acute Code(s): I25.10 - ATHSCL HEART DISEASE OF [place] CORONARY ARTERY W/O ANG PCTRS SNOMED Code(s): 40976844 Comment: -continue aspirin and metoprolol - will increase dose to 75 mg at bedtime d/t 3 episodes of Non- sustained VT and cardiology recommendation (4) GERD (gastroesophageal reflux disease) Status: Acute Code(s): K21.9 - GASTRO-ESOPHAGEAL REFLUX DISEASE WITHOUT ESOPHAGITIS SNOMED Code(s): 524374663 Comment: -Continue pantoprazole (5) DVT prophylaxis Status: Acute Code(s): Z29.9 - ENCOUNTER FOR PROPHYLACTIC MEASURES, UNSPECIFIED SNOMED Code(s): 973719162 Comment: -Per ortho- [place] (6) Full code status Status: Acute Code(s): Z78.9 - OTHER SPECIFIED HEALTH STATUS SNOMED Code(s) : 239869856 Status and Disposition: Inpatient. Discharge per ortho.
[2019-05-23] MEDS ORDERED: Metoprolol Succinate XL TAB* 50 MG PO SCH (21:00)
== END 2019-05-23 14:00 | DRG 470 ==
LOC: AA 05:44 → SSU 11:46
PROVIDERS: ADMIT Orthopaedic Surgery Adult Reconstructive Orthopaedic Surgery; ATTEND Orthopaedic Surgery Adult Reconstructive Orthopaedic Surgery
PROC: 0SRD0J9 Replacement of Left Knee Joint with Synthetic Substitute, Cemented, Open Approach (ICD-10-PCS; principal; 2019-05-21 07:30)
DX: M17.12 Unilateral primary osteoarthritis, left knee (principal); I47.2 Ventricular tachycardia; E78.00 Pure hypercholesterolemia, unspecified; M25.462 Effusion, left knee; M21.062 Valgus deformity, not elsewhere classified, left knee; I25.10 Atherosclerotic heart disease of native coronary artery without angina pectoris; I10 Essential (primary) hypertension; M25.762 Osteophyte, left knee; E78.5 Hyperlipidemia, unspecified; K21.9 Gastro-esophageal reflux disease without esophagitis; I73.9 Peripheral vascular disease, unspecified; R33.9 Retention of urine, unspecified; I49.3 Ventricular premature depolarization; R41.0 Disorientation, unspecified; I25.2 Old myocardial infarction; R30.0 Dysuria; I25.5 Ischemic cardiomyopathy; E66.9 Obesity, unspecified; K58.9 Irritable bowel syndrome, unspecified; K29.60 Other gastritis without bleeding; M85.80 Other specified disorders of bone density and structure, unspecified site; Z79.82 Long term (current) use of aspirin; Z79.01 Long term (current) use of anticoagulants; Z95.5 Presence of coronary angioplasty implant and graft; Z90.710 Acquired absence of both cervix and uterus; Z91.040 Latex allergy status; Z82.49 Family history of ischemic heart disease and other diseases of the circulatory system; Z96.651 Presence of right artificial knee joint; Z83.3 Family history of diabetes mellitus; Z82.61 Family history of arthritis; Z91.09 Other allergy status, other than to drugs and biological substances; Z87.891 Personal history of nicotine dependence; Z68.32 Body mass index [BMI] 32.0-32.9, adult
CPT/HCPCS: 36415; 80048; 81003; 81015; 83735; 84132; 84484; 85014; 85018; 85049; 87086; 93005; A9270-GY; C1776; G8987-GO-CL; G8988-GO-CI; J0690; J1100; J1885; J2250; J2405; J2704; J2795; J3010

== ENCOUNTER 2019-05-23 09:54 | Inpatient (IN) | payer MEDICARE, BC ==
[2019-05-23] MEDS ORDERED: Senna TAB 8.6 mg* TAB PO PRN (15:20)
[2019-05-23] MEDS ORDERED: Magnesium Hydroxide LIQ* 30 ML UDC PO PRN (15:20)
[2019-05-23] MEDS: Acetaminophen TAB* 325 MG PO PRN ×2 (17:04→23:49)
[2019-05-23] MEDS: Atorvastatin* 20 MG TAB PO SCH (17:05)
--- NOTE | 2019-05-23 18:59 | HP ---
HISTORY AND PHYSICAL: DATE OF ADMISSION: 05/23/19 REASON FOR ADMISSION: Left total knee replacement. HISTORY OF PRESENT ILLNESS: Lisa Ambriz is an 84-year-old white female. She has had left knee pain for about a year. She had tried and failed conservative treatment including physical therapy and an injection into her left knee. She sought consultation with Dr. Janeen Decker. She had x-rays taken showing end-stage osteoarthritis. It was decided she should have a left total knee replacement. She was admitted to [facility] on 05/21/19 and underwent a total knee replacement. The patient had a lot of difficulty with confusion postoperatively. The patient's pain medications were limited to Tylenol and tramadol as a result of her confusion. She was somewhat disoriented and had trouble following directions. It was felt that the patient had physical therapy and occupational therapy needs. She is now being admitted for inpatient rehab so that she might return to independent living. PAST MEDICAL HISTORY: Significant for a myocardial infarct. She had a heart attack in 2007 and underwent 2 stents. She has a history of mildly reduced ejection fraction as a result and hypertension, hyperlipidemia, gastroesophageal reflux disease. PAST SURGICAL HISTORY: She also had a right total knee replacement done in 2014. MEDICATIONS: Current medications include: 1. Lipitor. 2. Aspirin. 3. Toprol-XL. 4. Protonix. 5. Tramadol. 6. Senokot. Of note, at home, she also normally takes: 1. Spironolactone. 2. Lisinopril. ALLERGIES: The patient has allergies to LATEX. SOCIAL HISTORY: The patient is a nonsmoker. She does not drink alcohol. She lives in a 1-story house by herself. Next door to her are her grandson and [id number], who are also her surrogate decision makers. She has 2 children, 1 lives locally, the other lives in [place]. REVIEW OF SYSTEMS: The patient reports no current shortness of breath or chest pain. Of note, the patient did have 3 episodes of nonsustained V-tach up to 9 beats on the acute service. She had seen her screen room operator, Dr. Woods, who recommended increasing her Toprol from 50 mg to 75 mg at bedtime. PHYSICAL EXAMINATION VITAL SIGNS: The patient's temperature is 98.2, blood pressure is 158/53, pulse 49, respirations 18. HEENT: Her extraocular movements were intact. Tongue is midline. NECK: Supple. LUNGS: Sounded clear to auscultation bilaterally. HEART: Sounds were regular with occasional extra beats. ABDOMEN: Soft and nontender. EXTREMITIES: Her left knee has a wound, which is clean and dry. Peripheral pulses were intact. NEUROLOGIC: Sensation was intact. She was alert, oriented to herself. Muscle strength was about 3/5 in the left leg, otherwise 5/5. FUNCTIONAL EXAM: She transfers with min assist. ASSESSMENT: Left total knee replacement; postoperative delirium. PLAN: Integrate her into a comprehensive and therapeutic rehab program. We will have the following goals: 1. Physical Therapy will see with the patient. They are going to work on functional transfer training, ambulation training with a walker. 2. Occupational Therapy will see the patient, work on her activities of daily living including toileting and toilet transfers. 3. Eliquis for DVT prophylaxis. 4. Adequate analgesia without confusing her. 5. Her bowels will be regulated. 6. We will continue her Toprol as outlined by Cardiology. We will add back in her lisinopril and Aldactone as we need to. 7. litigation services manager will be closely involved to make sure that any services and equipment the patient requires are in place prior to discharge. 8. Family training as appropriate. 9. Advance directives: The patient is a full code. Her [id number] and grandson are her surrogate decision makers. 10. Home with appropriate services. ESTIMATED LENGTH OF STAY: 10 to 12 days. [id number]/[facility] #: [id number] SAJI
[2019-05-23] MEDS: Docusate CAP* 100 MG PO SCH (20:56)
[2019-05-23] MEDS: traMADol TAB* 50 MG PO PRN (20:56)
[2019-05-23] MEDS: Pantoprazole TAB * 40 MG TAB PO SCH (20:56)
[2019-05-23] MEDS: Multivitamins/Mins (NF) AREDS2 1 CAP CAP PO SCH (20:57)
[2019-05-23] MEDS: Apixaban* 2.5 MG TAB PO SCH (20:57)
[2019-05-23] MEDS: Metoprolol Succinate XL TAB* 50 MG PO SCH (21:15)
[2019-05-24] MEDS: traMADol TAB* 50 MG PO PRN ×3 (04:50→21:11)
[2019-05-24 07:11] LABS: ABS Eosinophils 0.2 10^3/ul (0-0.6); ABS Lymphocytes 0.9 10^3/ul (1.0-4.8); ABS Monocytes 0.8 10^3/ul (0-0.8); ABS Neutrophils 6.1 10^3/ul (1.5-7.7); Eosinophil % 2.7 %; Hematocrit 29 % (35-47); Mean Corpuscular HGB Conc 35 g/dL (31-36); Mean Corpuscular Hemoglobin 32 pg (27-31); Mean Corpuscular Volume 94 fL (80-97); Mean Platelet Volume 8.6 fL (7.4-10.4); Platelet Count 211 10^3/uL (150-450); Red Blood Count 3.11 10^6 /uL (3.70-4.87); Red Cell Distribution Width 14 % (10-15)
[2019-05-24 07:28] LABS: Albumin 3.8 g/dL (3.2-5.2); Albumin/Globulin Ratio 1.6 (1-3); BUN/Creatinine Ratio 18.6 (8-20); Calcium 8.8 mg/dL (8.6-10.3); EGFR African American 96.5 (>60); EGFR Non-African American 79.7 (>60); Globulin 2.4 g/dL (2-4); Potassium 4.1 mmol/L (3.5-5.0); Total Bilirubin 1.1 mg/dL (0.2-1.0); Total Protein 6.2 g/dL (6.4-8.9)
[2019-05-24] MEDS: Docusate CAP* 100 MG PO SCH ×2 (09:02→21:10)
[2019-05-24] MEDS: Multivitamins/Mins (NF) AREDS2 1 CAP CAP PO SCH ×2 (09:02→21:11)
[2019-05-24] MEDS: Pantoprazole TAB * 40 MG TAB PO SCH ×2 (09:02→21:10)
[2019-05-24] MEDS: Aspirin EC TAB* 81 MG TAB.EC PO SCH (09:02)
[2019-05-24] MEDS: Apixaban* 2.5 MG TAB PO SCH ×2 (09:02→21:11)
[2019-05-24] MEDS: Acetaminophen TAB* 325 MG PO PRN ×2 (09:03→18:57)
--- NOTE | 2019-05-24 12:52 | PMRUTEAM ---
PMRU: Team Meeting Current Status: Nursing: Current Status Skin Deviations [Left Knee] Incision Skin Deviation Description [ intact. scant old bloody drainage. washed with Left Knee] soap and water. new telfa, 2 4x4's and federica wrap Physical Therapy: Current Status Bed Mobility Assistance Mod Assist Transfer Mobility Assistance Min Assist, Ambulation Assistance Contact Guard Assist, Ambulation Assistive Devices Rolling Walker Stairs Assistance Not tested Stairs Recommended Devices Two Rails Number of Stairs Occupational Therapy: Current Status Upper Body Dressing Supervision Lower Body Dressing Total Assist Bathing Mod Assist Toileting Max Asst Toilet Transfer Mod Assist Shower Transfer Mod Assist Eating Ind with Adaptive Equip Instrumental ADL Assist as needed. Pt has assist with housekeeping at baseline. Rec Therapy: Current Status Summary of Assessment and Pt. has just arrived to the unit, was open to a Clinical Impression brief conversation. Pt. expressed feeling very tired and appeared this way as well. Pt. answered questions with little depth in her responses but was appropriate and cooperative. Pt. was open to continued leisure visits and the possibility of pet therapy but "not today". Treatment Goals Pt. will engage in leisure activities while on the unit as tolerated. Treatment Plan Provide recreation therapy services and encourage involvement. Goals: Occupational Therapy: Initial Goals Goals to be Completed in (Days 14-21 ) Upper Body Bathing Routine Supervision/Set Up Lower Body Bathing Routine Supervision/Set Up Upper Body Dressing Routine Independent Lower Body Dressing Routine Modified Independent with Toilet Hygeine and Clothing Modified Independent with Management Routine Toilet Transfer Routine Modified Independent with Step-In Shower Transfer Supervision/Set Up Routine Functional Transfers for ADL Modified Independent with Grooming Routine Modified Independent with PHYSICAL THERAPY: Independent transfers, ambulation 150 feet with rolling walker , up and down 5 stairs Care Plan: Care Plan Anxiety-Improve Start: 05/24/19 01:24 Freq: DAILY@0400,1600 Status: Active Target: 05/25/19 Protocol: Activity Type Activity Date Activity User E-Sign Co-Sign Detail Recorded Client Recorded Date Recorded By Document 05/24/19 08:30 [id number] 05/24/19 10:18 [id number] 05/24/19 08:30 Outcome: Anxiety Current Anxiety Outcome/Goals States Decrease in Anxiety Demonstrates Adequate Coping Asks Questions Freely States Current Stressors Uses Support Services As Appropriate Other Anxiety Outcome/Goals granddaughter with patient Progression Toward Outcome/Goals Progressing Cardiovascular-Improve/Maintain Start: 05/24/19 01:24 Freq: DAILY@0400,1600 Status: Active Target: 05/25/19 Protocol: Activity Type Activity Date Activity User E-Sign Co-Sign Detail Recorded Client Recorded Date Recorded By Document 05/24/19 08:30 [id number] 05/24/19 10:18 [id number] 05/24/19 08:30 Outcome: Cardiovascular Current Cardiovascular Outcome/Goals Maintain/ achieve baseline HR, BP , Perfusion Improve HR within prescribed parameters Maintain/ improve perfusion Free of abnormal cardiac symptoms Progression Towards Outcome/Goals Progressing Discharge Planning Start: 05/24/19 01:24 Freq: DAILY@0400,1600 Status: Active Target: 05/25/19 Protocol: Activity Type Activity Date Activity User E-Sign Co-Sign Detail Recorded Client Recorded Date Recorded By Document 05/24/19 01:24 [id number] 05/24/19 01:26 [id number] 05/24/19 01:24 Outcome: Discharge Planning Current Discharge Planning Outcome/Goals Demonstrates Understanding of Discharge Plan Progression Toward Outcome/Goals Unable to Assess This Shift Due to Patient Condition Gastrointestinal-Improve/Maintain Start: 05/24/19 01:24 Freq: DAILY@0400,1600 Status: Active Target: 05/25/19 Protocol: Activity Type Activity Date Activity User E-Sign Co-Sign Detail Recorded Client Recorded Date Recorded By Document 05/24/19 08:30 [id number] 05/24/19 10:18 [id number] 05/24/19 08:30 Outcome: Gastrointestinal Current GI Outcome/Goals Maintain/ Achieve Bowel Regularity in Accordance with Pt's Baseline Remain Free of Emesis Progression Toward Outcome/Goals Progressing Genitourinary-Improve/Maintain Start: 05/24/19 01:24 Freq: DAILY@0400,1600 Status: Active Target: 05/25/19 Protocol: Activity Type Activity Date Activity User E-Sign Co-Sign Detail Recorded Client Recorded Date Recorded By Document 05/24/19 08:30 [id number] 05/24/19 10:18 [id number] 05/24/19 08:30 Outcome: Genitourinary Current Outcome/Goals Maintain/ Achieve Urinary Continence Progression Toward Outcome/Goals Goals Met Outcome/Goals Met Maintain/ Achieved Urinary Continence Safety- Improve/Maintain Start: 05/23/19 15:05 Freq: DAILY@0400,1600 Status: Active Target: 05/26/19 Protocol: Activity Type Activity Date Activity User E-Sign Co-Sign Detail Recorded Client Recorded Date Recorded By Document 05/24/19 08:30 [id number] 05/24/19 10:18 [id number] 05/24/19 08:30 PMRU Outcome: Safety Current Safety Outcome/Goals Remain Free of Injury or Harm Cooperates with Safety Measures for Least Restrictive Environment Prevent Falls/ Injury Other Safety Outcome/Goals patient can be forgetful, no attempts to transfer oob or wc independently thus far. Progression Toward Outcome/Goals Progressing Medicine Note: Length of Stay: 11 days Anticipated Discharge Destination: Tentative Discharge Date: 06/04/19 Discharged to: Home
[2019-05-24] MEDS ORDERED: Bisacodyl SUPP* 10 MG SUPP PR PRN (17:12)
--- NOTE | 2019-05-24 17:17 | PN ---
Progress Note Date of Service: 05/24/19 Note: NAEEM ANTOINE was visited. Therapy notes read and reviewed. Patient was discussed in interdisciplinary team rounds. She remains confused and is slightly constipated. Current Medications: Active Medications Generic Name Dose Route Start Last Admin Trade Name Freq PRN Reason Stop Dose Admin Acetaminophen 650 mg 05/23/19 15:20 05/24/19 09:03 Tylenol Tab* PO 650 mg Q6H PRN Administration MILD PAIN or TEMP > 100.4 Apixaban 2.5 mg 05/23/19 21:00 05/24/19 09:02 Eliquis* PO 2.5 mg BID ANDRY Administration Aspirin 81 mg 05/24/19 09:00 05/24/19 09:02 Aspirin Ec Tab* PO 81 mg DAILY ANDRY Administration Atorvastatin Calcium 20 mg 05/23/19 17:00 05/23/19 17:05 Lipitor* PO 20 mg 1700 ANDRY Administration Bisacodyl 10 mg 05/24/19 17:12 Dulcolax Supp* [place] DAILY PRN CONSTIPATION Docusate Sodium 100 mg 05/23/19 21:00 05/24/19 09:02 Colace Cap* PO 100 mg BID ANDRY Administration Magnesium Hydroxide 30 ml 05/23/19 15:20 Milk Of Magnesia Liq* PO Q6H PRN CONSTIPATION Metoprolol Succinate 75 mg 05/23/19 21:00 05/23/19 21:15 Toprol Xl Tab* PO 50 mg BEDTIME ANDRY Administration Multivitamins/Minerals 1 cap 05/23/19 21:00 05/24/19 09:02 Preservision Areds 2 PO 1 cap BID ANDRY Administration Ondansetron HCl 4 mg 05/24/19 17:11 Zofran Odt Tab* PO Q6H PRN NAUSEA Pantoprazole Sodium 40 mg 05/23/19 21:00 05/24/19 09:02 Protonix Tab* PO 40 mg BID ANDRY Administration Senna 2 tab 05/24/19 21:00 Senokot Tab* PO BEDTIME ANDRY Tramadol HCl 50 mg 05/23/19 15:29 05/24/19 13:46 Ultram* PO 50 mg Q6H PRN Administration PAIN - MODERATE Vital Signs: Vital Signs Temp Pulse Resp BP Pulse Ox 98.1 F 72 16 143/70 97 05/24/19 06:00 05/24/19 06:00 05/24/19 16:08 05/24/19 06:00 05/24/19 06:00 Lab Results: Laboratory Results - last 24 hr 05/24/19 05/24/19 06:55 06:55 WBC 8.0 RBC 3.11 L Hgb 10.0 L Hct 29 L MCV 94 MCH 32 H MCHC 35 RDW 14 Plt Count 211 MPV 8.6 Neut % (Auto) 76.2 Lymph % (Auto) 11.0 [place] % (Auto) 9.6 Eos % (Auto) 2.7 Baso % (Auto) 0.5 Absolute Neuts (auto) 6.1 Absolute Lymphs (auto) 0.9 L Absolute Monos (auto) 0.8 Absolute Eos (auto) 0.2 Absolute Basos (auto) 0.0 Absolute Nucleated RBC 0.0 Nucleated RBC % 0.0 Sodium 137 Potassium 4.1 Chloride 104 Carbon Dioxide 25 Anion Gap 8 BUN 13 Creatinine 0.70 Est GFR ( Amer) 96.5 Est GFR (Non-Af Amer) 79.7 BUN/Creatinine Ratio 18.6 Glucose 98 Calcium 8.8 Total Bilirubin 1.10 H AST 31 ALT 11 Alkaline Phosphatase 75 Total Protein 6.2 L Albumin 3.8 Globulin 2.4 Albumin/Globulin Ratio 1.6 Exam: GENERAL: In no distress LUNGS: Clear HEART: REg rhythm, occasional extra beats ABDOMEN: Soft +BS EXTREMITIES: Left knee wound C/D/I NEUROLOGIC: Oriented to self. Moves all 4 extremities Assessment/Plan: 1. Left total knee replacement: PT/OT. WBAT. F/U with Dr. Decker 2. Delirium: Trying to hold opioids. May need to stop Tramadol 3. CAD, S/P ID: Toprol XL, ASA. May need to lower Toprol to 50 due to bradycardia 4. DVT Prophylaxis: Eliquis 5. Nausea: Zofran 6. Constipation: MOM, Colace, Senna 05/24/19 17:15 05/24/19 17:17
[2019-05-24] MEDS: Ondansetron ODT TAB* 4 MG PO PRN (17:48)
[2019-05-24] MEDS: Atorvastatin* 20 MG TAB PO SCH (17:49)
[2019-05-24] MEDS: Metoprolol Succinate XL TAB* 50 MG PO SCH (21:20)
[2019-05-24] MEDS: Senna TAB 8.6 mg* TAB PO SCH (21:22)
[2019-05-25] MEDS: traMADol TAB* 50 MG PO PRN ×2 (05:53→19:56)
[2019-05-25] MEDS: Acetaminophen TAB* 325 MG PO PRN ×2 (08:55→18:37)
[2019-05-25] MEDS: Docusate CAP* 100 MG PO SCH ×2 (08:56→21:00)
[2019-05-25] MEDS: Aspirin EC TAB* 81 MG TAB.EC PO SCH (08:56)
[2019-05-25] MEDS: Pantoprazole TAB * 40 MG TAB PO SCH ×2 (08:56→21:01)
[2019-05-25] MEDS: Apixaban* 2.5 MG TAB PO SCH ×2 (08:56→21:01)
[2019-05-25] MEDS: Multivitamins/Mins (NF) AREDS2 1 CAP CAP PO SCH ×2 (08:57→21:02)
--- NOTE | 2019-05-25 14:30 | PN ---
Progress Note Date of Service: 05/25/19 Note: NAEEM ANTOINE was visited. Nursing and Therapy notes read and reviewed. She is much clearer and more oriented today. A vast improvement. Current Medications: Active Medications Generic Name Dose Route Start Last Admin Trade Name Freq PRN Reason Stop Dose Admin Acetaminophen 650 mg 05/23/19 15:20 05/25/19 08:55 Tylenol Tab* PO 650 mg Q6H PRN Administration MILD PAIN or TEMP > 100.4 Apixaban 2.5 mg 05/23/19 21:00 05/25/19 08:56 Eliquis* PO 2.5 mg BID ANDRY Administration Aspirin 81 mg 05/24/19 09:00 05/25/19 08:56 Aspirin Ec Tab* PO 81 mg DAILY ANDRY Administration Atorvastatin Calcium 20 mg 05/23/19 17:00 05/24/19 17:49 Lipitor* PO 20 mg 1700 ANDRY Administration Bisacodyl 10 mg 05/24/19 17:12 Dulcolax Supp* [place] DAILY PRN CONSTIPATION Docusate Sodium 100 mg 05/23/19 21:00 05/25/19 08:56 Colace Cap* PO 100 mg BID ANDRY Administration Magnesium Hydroxide 30 ml 05/23/19 15:20 Milk Of Magnesia Liq* PO Q6H PRN CONSTIPATION Metoprolol Succinate 75 mg 05/23/19 21:00 05/24/19 21:20 Toprol Xl Tab* PO 75 mg BEDTIME ANDRY Administration Multivitamins/Minerals 1 cap 05/23/19 21:00 05/25/19 08:57 Preservision Areds 2 PO 1 cap BID ANDRY Administration Ondansetron HCl 4 mg 05/24/19 17:11 05/24/19 17:48 Zofran Odt Tab* PO 4 mg Q6H PRN Administration NAUSEA Pantoprazole Sodium 40 mg 05/23/19 21:00 05/25/19 08:56 Protonix Tab* PO 40 mg BID ANDRY Administration Senna 2 tab 05/24/19 21:00 05/24/19 21:22 Senokot Tab* PO Not Given BEDTIME ANDRY Tramadol HCl 50 mg 05/23/19 15:29 05/25/19 05:53 Ultram* PO 50 mg Q6H PRN Administration PAIN - MODERATE Vital Signs: Vital Signs Temp Pulse Resp BP Pulse Ox 98.5 F 41 18 148/69 90 05/25/19 05:16 05/25/19 05:16 05/25/19 11:27 05/25/19 05:16 05/25/19 08:00 Exam: GENERAL: In no distress LUNGS: Clear HEART: REg rhythm, occasional extra beats ABDOMEN: Soft +BS EXTREMITIES: Left knee wound C/D/I NEUROLOGIC: Oriented to self, place. Able to identify me as doctor. Sensation intact. Moves all 4 extremities Assessment/Plan: 1. Left total knee replacement: PT/OT. WBAT. F/U with Dr. Decker 2. Delirium: Much improved today. Trying to hold opioids. May need to stop Tramadol 3. CAD, S/P [place]: Toprol XL, ASA. May need to lower Toprol to 50 due to bradycardia 4. DVT Prophylaxis: Eliquis 5. Nausea: Zofran 6. Constipation: MOM, Bridgette, Senna 05/25/19 14:31
[2019-05-25] MEDS: Atorvastatin* 20 MG TAB PO SCH (17:07)
[2019-05-25] MEDS: Metoprolol Succinate XL TAB* 50 MG PO SCH (20:59)
[2019-05-25] MEDS: Senna TAB 8.6 mg* TAB PO SCH (21:01)
[2019-05-26] MEDS: Acetaminophen TAB* 325 MG PO PRN ×4 (00:35→22:08)
[2019-05-26] MEDS: traMADol TAB* 50 MG PO PRN ×3 (03:19→19:55)
[2019-05-26] MEDS: Pantoprazole TAB * 40 MG TAB PO SCH ×2 (08:36→22:08)
[2019-05-26] MEDS: Multivitamins/Mins (NF) AREDS2 1 CAP CAP PO SCH ×2 (08:37→22:03)
[2019-05-26] MEDS: Apixaban* 2.5 MG TAB PO SCH ×2 (08:37→22:02)
[2019-05-26] MEDS: Docusate CAP* 100 MG PO SCH ×2 (08:37→22:01)
[2019-05-26] MEDS: Aspirin EC TAB* 81 MG TAB.EC PO SCH (08:37)
--- NOTE | 2019-05-26 15:54 | PN ---
Progress Note Date of Service: 05/26/19 Note: NAEEM ANTOINE was visited. Nursing and Therapy notes read and reviewed. Again, much more oriented and calm. Paranoia gone. She has minimal complaints of pain. No BM yet Current Medications: Active Medications Generic Name Dose Route Start Last Admin Trade Name Freq PRN Reason Stop Dose Admin Acetaminophen 650 mg 05/23/19 15:20 05/26/19 07:12 Tylenol Tab* PO 650 mg Q6H PRN Administration MILD PAIN or TEMP > 100.4 Apixaban 2.5 mg 05/23/19 21:00 05/26/19 08:37 Eliquis* PO 2.5 mg BID ANDRY Administration Aspirin 81 mg 05/24/19 09:00 05/26/19 08:37 Aspirin Ec Tab* PO 81 mg DAILY ANDRY Administration Atorvastatin Calcium 20 mg 05/23/19 17:00 05/25/19 17:07 Lipitor* PO 20 mg 1700 ANDRY Administration Bisacodyl 10 mg 05/24/19 17:12 Dulcolax Supp* [place] DAILY PRN CONSTIPATION Docusate Sodium 100 mg 05/23/19 21:00 05/26/19 08:37 Colace Cap* PO 100 mg BID ANDRY Administration Magnesium Hydroxide 30 ml 05/23/19 15:20 05/26/19 13:00 Milk Of Magnesia Liq* PO 30 ml Q6H PRN Administration CONSTIPATION Metoprolol Succinate 75 mg 05/23/19 21:00 05/25/19 20:59 Toprol Xl Tab* PO 75 mg BEDTIME ANDRY Administration Multivitamins/Minerals 1 cap 05/23/19 21:00 05/26/19 08:37 Preservision Areds 2 PO 1 cap BID ANDRY Administration Ondansetron HCl 4 mg 05/24/19 17:11 05/24/19 17:48 Zofran Odt Tab* PO 4 mg Q6H PRN Administration NAUSEA Pantoprazole Sodium 40 mg 05/23/19 21:00 05/26/19 08:36 Protonix Tab* PO 40 mg BID ANDRY Administration Senna 2 tab 05/24/19 21:00 05/25/19 21:01 Senokot Tab* PO 2 tab BEDTIME ANDRY Administration Tramadol HCl 50 mg 05/23/19 15:29 05/26/19 09:22 Ultram* PO 50 mg Q6H PRN Administration PAIN - MODERATE Vital Signs: Vital Signs Temp Pulse Resp BP Pulse Ox 98.1 F 64 18 140/90 91 05/26/19 04:56 05/26/19 04:56 05/26/19 12:10 05/26/19 04:56 05/26/19 08:00 Exam: GENERAL: In no distress LUNGS: Clear HEART: REg rhythm, occasional extra beats ABDOMEN: Soft +BS EXTREMITIES: Left knee wound C/D/I NEUROLOGIC: Oriented to self, place. Sensation intact. Moves all 4 extremities Assessment/Plan: 1. Left total knee replacement: PT/OT. WBAT. F/U with Dr. Decker 2. Delirium: Much better. Trying to hold opioids. May need to stop Tramadol 3. CAD, S/P MD: Toprol XL, ASA. May need to lower Toprol to 50 due to bradycardia 4. DVT Prophylaxis: Eliquis 5. Nausea: Zofran 6. Constipation: MOM, Colace, Senna 05/26/19 15:54
[2019-05-26] MEDS: Atorvastatin* 20 MG TAB PO SCH (17:38)
[2019-05-26] MEDS: Senna TAB 8.6 mg* TAB PO SCH (22:02)
[2019-05-26] MEDS: Metoprolol Succinate XL TAB* 50 MG PO SCH (22:02)
[2019-05-27] MEDS: Methocarbamol TAB* 500 MG PO PRN ×2 (02:55→21:04)
[2019-05-27] MEDS: Acetaminophen TAB* 325 MG PO PRN ×2 (05:01→20:06)
[2019-05-27] MEDS: Aspirin EC TAB* 81 MG TAB.EC PO SCH (09:52)
[2019-05-27] MEDS: Pantoprazole TAB * 40 MG TAB PO SCH ×2 (09:52→20:06)
[2019-05-27] MEDS: Multivitamins/Mins (NF) AREDS2 1 CAP CAP PO SCH ×2 (09:52→20:11)
[2019-05-27] MEDS: Apixaban* 2.5 MG TAB PO SCH ×2 (09:52→20:05)
[2019-05-27] MEDS: Docusate CAP* 100 MG PO SCH ×2 (09:52→20:06)
[2019-05-27] MEDS: traMADol TAB* 50 MG PO PRN ×2 (09:52→18:55)
[2019-05-27] MEDS: Ondansetron ODT TAB* 4 MG PO PRN (13:57)
--- NOTE | 2019-05-27 15:44 | PN ---
Progress Note Date of Service: 05/27/19 Note: NAEEM ANTOINE was visited. Therapy notes read and reviewed. She did well with therapy today. She is requesting Benadryl to help her sleep. Had BM today Current Medications: Active Medications Generic Name Dose Route Start Last Admin Trade Name Freq PRN Reason Stop Dose Admin Acetaminophen 650 mg 05/23/19 15:20 05/27/19 05:01 Tylenol Tab* PO 650 mg Q6H PRN Administration MILD PAIN or TEMP > 100.4 Apixaban 2.5 mg 05/23/19 21:00 05/27/19 09:52 Eliquis* PO 2.5 mg BID ANDRY Administration Aspirin 81 mg 05/24/19 09:00 05/27/19 09:52 Aspirin Ec Tab* PO 81 mg DAILY ANDRY Administration Atorvastatin Calcium 20 mg 05/23/19 17:00 05/26/19 17:38 Lipitor* PO 20 mg 1700 ANDRY Administration Bisacodyl 10 mg 05/24/19 17:12 Dulcolax Supp* [place] DAILY PRN CONSTIPATION Diphenhydramine HCl 25 mg 05/27/19 12:06 Benadryl Po* PO BEDTIME PRN INSOMNIA Docusate Sodium 100 mg 05/23/19 21:00 05/27/19 09:52 Colace Cap* PO 100 mg BID ANDRY Administration Magnesium Hydroxide 30 ml 05/23/19 15:20 05/26/19 13:00 Milk Of Magnesia Liq* PO 30 ml Q6H PRN Administration CONSTIPATION Methocarbamol 500 mg 05/26/19 16:32 05/27/19 02:55 Robaxin Tab* PO 500 mg TID PRN Administration SPASMS Metoprolol Succinate 75 mg 05/23/19 21:00 05/26/19 22:02 Toprol Xl Tab* PO 75 mg BEDTIME ANDRY Administration Multivitamins/Minerals 1 cap 05/23/19 21:00 05/27/19 09:52 Preservision Areds 2 PO 1 cap BID ANDRY Administration Ondansetron HCl 4 mg 05/24/19 17:11 05/27/19 13:57 Zofran Odt Tab* PO 4 mg Q6H PRN Administration NAUSEA Pantoprazole Sodium 40 mg 05/23/19 21:00 05/27/19 09:52 Protonix Tab* PO 40 mg BID ANDRY Administration Senna 2 tab 05/24/19 21:00 05/26/19 22:02 Senokot Tab* PO 2 tab BEDTIME ANDRY Administration Tramadol HCl 50 mg 05/23/19 15:29 05/27/19 09:52 Ultram* PO 50 mg Q6H PRN Administration PAIN - MODERATE Vital Signs: Vital Signs Temp Pulse Resp BP Pulse Ox 97.9 F 88 18 140/80 96 05/27/19 05:06 05/27/19 05:10 05/27/19 12:05 05/27/19 05:06 05/27/19 05:06 Exam: GENERAL: In no distress LUNGS: Clear HEART: REg rhythm, occasional extra beats ABDOMEN: Soft +BS EXTREMITIES: Left knee wound C/D/I NEUROLOGIC: Oriented to self, place. Sensation intact. Moves all 4 extremities Assessment/Plan: 1. Left total knee replacement: PT/OT. WBAT. F/U with Dr. Decker 2. Delirium: Much better. Trying to hold opioids. 3. CAD, S/P [place]: Toprol XL, ASA. May need to lower Toprol to 50 due to bradycardia 4. DVT Prophylaxis: Eliquis 5. Nausea: Zofran 6. Constipation: MOM, Colace, Senna 05/27/19 15:44
[2019-05-27] MEDS: Atorvastatin* 20 MG TAB PO SCH (17:40)
[2019-05-27] MEDS: Senna TAB 8.6 mg* TAB PO SCH (20:06)
[2019-05-27] MEDS: diPHENhydraMINE PO* 25 MG PO PRN (20:07)
[2019-05-27] MEDS: Metoprolol Succinate XL TAB* 50 MG PO SCH (20:09)
[2019-05-28] MEDS: traMADol TAB* 50 MG PO PRN ×3 (01:03→19:06)
[2019-05-28] MEDS: Acetaminophen TAB* 325 MG PO PRN ×3 (06:51→20:14)
[2019-05-28] MEDS: Multivitamins/Mins (NF) AREDS2 1 CAP CAP PO SCH ×2 (08:43→20:09)
[2019-05-28] MEDS: Docusate CAP* 100 MG PO SCH ×2 (08:43→20:07)
[2019-05-28] MEDS: Aspirin EC TAB* 81 MG TAB.EC PO SCH (08:43)
[2019-05-28] MEDS: Pantoprazole TAB * 40 MG TAB PO SCH ×2 (08:43→20:09)
[2019-05-28] MEDS: Apixaban* 2.5 MG TAB PO SCH ×2 (08:43→20:07)
--- NOTE | 2019-05-28 12:57 | PMRUTEAM ---
PMRU: Team Meeting Current Status: Nursing: Current Status Skin Deviations [Left Knee] Incision Skin Deviation Description [ healing. Sutures intact - ABBEY. Cryounit Left Knee] Bladder Current Status voiding without difficulty Bowel Current Status last bm 05/28/19. colace Nutrition Current Status appetite fair Medication Current Status tramadol, tylenol for pain. needs reinforcement Physical Therapy: Current Status Bed Mobility Assistance Min Assist Transfer Mobility Assistance Contact Guard Assist Transfer/Bed Mobility Rolling Walker Recommended Devices Ambulation Assistance Contact Guard Assist Ambulation Assistive Devices Rolling Walker Number of Feet Patient 150 Ambulated Stairs Assistance Not Tested Stairs Recommended Devices Two Rails Number of Stairs 3 Curb Not Tested Occupational Therapy: Current Status Upper Body Dressing Supervision Lower Body Dressing Min Assist Bathing Min Assist Toileting Contact Guard Assist Toilet Transfer Contact Guard Assist Shower Transfer Min Assist Eating Independent Instrumental ADL Assist as needed. Pt has assist with housekeeping at baseline. Rec Therapy: Current Status Summary of Assessment and Recreation Therapy services introduced and Clinical Impression assessment is complete. Pt. has been with visitors and resting much of the time in the afternoons but has been open to continued leisure visits. Treatment Goals Pt. will engage in leisure activities as tolerated . Treatment Plan Provide recreation therapy and encourage involvement. Social Work: Current Status Discharge Plan return home with home care services and family support Potential for Family Training pt's granddaughter is attentive and involved Anticipated Discharge Home Destination Anticipated Discharge are interested in [facility] Destination Comment Discharge With home care svs and family support Nutrition: Current Status Monitoring Pt adm w/ L total knee; on regular unrestricted w / noted fair intake; consumed 100% D last PM and 80 % of B this AM, though some variability in intake throughout stay (i.e. 0% L yesterday). Will continue to monitor intakes and offer nourishments /supplements as indicated. No noted GI s/sx including difficulty chewing/swallowing (last BM per chart). No pressure related skin breakdown per chart. Nutritionally pertinent labs reviewed and unremarkable. Agree w/ current diet order. Will continue to monitor and provide further nutrition intervention as indicated; f/u scheduled 05/30 per protocol. Goals: Physical Therapy: Initial Goals Bed Mobility Assistance Independent Transfer Mobility Assistance Independent Transfer/Bed Mobility Rolling Walker Recommended Devices Ambulation Independent Ambulation Recommended Devices Rolling Walker Ambulation Distance 300 Stairs Assistance Independent Stair Recommended Devices Two Rails Number of Stairs 5 Physical Therapy: Updated Goals Transfer/Bed Mobility Rolling Walker Recommended Devices Occupational Therapy: Initial Goals Goals to be Completed in (Days 14-21 ) Upper Body Bathing Routine Supervision/Set Up Lower Body Bathing Routine Supervision/Set Up Upper Body Dressing Routine Independent Lower Body Dressing Routine Modified Independent with Toilet Hygeine and Clothing Modified Independent with Management Routine Toilet Transfer Routine Modified Independent with Step-In Shower Transfer Supervision/Set Up Routine Functional Transfers for ADL Modified Independent with Grooming Routine Modified Independent with Nursing: Goals Bladder Goal independent Bowel Goal independent Nutrition Goal 90% of all meals consumed Medication Goal supervision Nutrition: Goals Intervention Goals 1) Adequate po intake to support lean body mass and hydration status 2) Maintain fluid/electrolyte balance w/ adequate po intake 3) Maintain bowel regularity w/ adequate po intake w/o development of diarrhea/constipation Social Work: Goals Discharge Plan return home with home care services and family support Potential for Family Training pt's granddaughter is attentive and involved Anticipated Discharge Home Destination Anticipated Discharge are interested in [facility] Destination Comment Discharge With home care svs and family support Care Plan: Care Plan ADL's - Improve/Maintain Start: 05/25/19 11:10 Freq: DAILY@1000 Status: Active Target: 06/04/19 Protocol: Activity Type Activity Date Activity User E-Sign Co-Sign Detail Recorded Client Recorded Date Recorded By Document 05/27/19 14:59 [id number] [id number] 05/27/19 15:00 [id number] 05/27/19 14:59 PMRU Outcome: ADL's/ADL Transfers Orders/Interventions Occupational Therapy Evaluation & Treatment Device Yes: FWW, w/c Address Deficits Secondary To: left TKA Patient to receive OT 5x/wk for 60-120 Therex min/day Self Care Management Group Therapy UE/LE ADL's with Assist Yes ADL Transfers with Assist Yes Toileting: Transfers,Clothing Management Yes ,Hygeine w/Assist Light Kitchen/Laundry w/Assist Yes Progression Toward Outcome/Goals Progressing Outcome/Goals Met Pt is willing to complete therapy despite reportedly feeing nausous. Pt reports that her pain is feeling better and is happy when reminded that she did well in therapy this morning. Anxiety-Improve Start: 05/24/19 01:24 Freq: 07,15,2300 Status: Active Target: 06/03/19 Protocol: Activity Type Activity Date Activity User E-Sign Co-Sign Detail Recorded Client Recorded Date Recorded By Document 05/28/19 08:10 [id number] 05/28/19 10:16 [id number] 05/28/19 08:10 Outcome: Anxiety Current Anxiety Outcome/Goals States Decrease in Anxiety Demonstrates Adequate Coping Asks Questions Freely Uses Support Services As Appropriate Progression Toward Outcome/Goals Progressing Cardiovascular-Improve/Maintain Start: 05/24/19 01:24 Freq: DAILY@0400,1600 Status: Active Target: 06/03/19 Protocol: Activity Type Activity Date Activity User E-Sign Co-Sign Detail Recorded Client Recorded Date Recorded By Document 05/28/19 08:10 [id number] [email or web address] 05/28/19 10:16 [id number] 05/28/19 08:10 Outcome: Cardiovascular Current Cardiovascular Outcome/Goals Maintain/ achieve baseline HR, BP , Perfusion Improve HR within prescribed parameters Free of abnormal cardiac symptoms Progression Towards Outcome/Goals Progressing Discharge Planning Start: 05/24/19 01:24 Freq: DAILY@0400,1600 Status: Active Target: 06/03/19 Protocol: Activity Type Activity Date Activity User E-Sign Co-Sign Detail Recorded Client Recorded Date Recorded By Document 05/28/19 01:48 [id number] 05/28/19 01:49 [id number] 05/28/19 01:48 Outcome: Discharge Planning Current Discharge Planning Outcome/Goals Demonstrates Understanding of Discharge Plan Progression Toward Outcome/Goals Progressing Education-Improve/Maintain Start: 05/27/19 16:01 Freq: DAILY@0400,1600 Status: Active Target: 06/03/19 Protocol: Activity Type Activity Date Activity User E-Sign Co-Sign Detail Recorded Client Recorded Date Recorded By Document 05/28/19 08:10 [id number] [email or web address] 05/28/19 10:16 [id number] 05/28/19 08:10 PMRU Outcome: Education Current Education Outcome/Goals Demonstrates Skills Encourage Questions Progression Toward Outcome/Goals Progressing Gastrointestinal-Improve/Maintain Start: 05/24/19 01:24 Freq: DAILY@0400,1600 Status: Active Target: 05/29/19 Protocol: Activity Type Activity Date Activity User E-Sign Co-Sign Detail Recorded Client Recorded Date Recorded By Document 05/28/19 08:10 [id number] [email or web address] 05/28/19 10:16 [id number] 05/28/19 08:10 Outcome: Gastrointestinal Current GI Outcome/Goals Maintain/ Achieve Bowel Regularity in Accordance with Pt's Baseline Remain Free of Emesis Other GI Outcome/Goals colace Progression Toward Outcome/Goals Progressing Genitourinary-Improve/Maintain Start: 05/24/19 01:24 Freq: DAILY@0400,1600 Status: Active Target: 05/29/19 Protocol: Activity Type Activity Date Activity User E-Sign Co-Sign Detail Recorded Client Recorded Date Recorded By Document 05/28/19 08:10 [id number] [email or web address] 05/28/19 10:16 [id number] 05/28/19 08:10 Outcome: Genitourinary Current Outcome/Goals Maintain/ Achieve Urinary Continence Progression Toward Outcome/Goals Goals Met Outcome/Goals Met Maintain/ Achieved Urinary Continence Mobility- Improve/Maintain Start: 05/28/19 08:40 Freq: DAILY@0400,1600 Status: Active Target: 06/04/19 Protocol: Activity Type Activity Date Activity User E-Sign Co-Sign Detail Recorded Client Recorded Date Recorded By Document 05/28/19 08:40 [id number] [email or web address] 05/28/19 08:42 [id number] 05/28/19 08:40 PMRU Outcome: Mobility Physical Therapy Evaluation and Yes Treatment Activity OOB with Assistance Yes WBAT Yes Device Yes: FWW Assistance Yes: CGA Patient to be seen 5x/wk for 60-120 min/ Therex day for: Mobility Training Gait Training Balance Current Mobility Outcome/Goals Maintain/ Achieve Baseline Mobility Status Improve Mobility Status Demonstrates Proper Use of Assistive Devices Free from Complications of Immobility Progression Toward Outcome/Goals Goal Initiation Bed Mobility Yes: Ind Transfers Yes: Mod I with FWW Gait x ft Yes: Mod I with FWW x150ft Up/Down Stairs Yes: Ind x5 steps with 2 rails With HEP Yes Nutrition/Swallowing- Improve/Maintain Start: 05/27/19 16:01 Freq: DAILY@0400,1600 Status: Active Target: 05/28/19 Protocol: Activity Type Activity Date Activity User E-Sign Co-Sign Detail Recorded Client Recorded Date Recorded By Document 05/28/19 01:48 [id number] 05/28/19 01:49 [id number] 05/28/19 01:48 PMRU Outcome: Nutrition/Swallowing Current Nutrition/Swallowing Outcome/ Demonstrates Goals Adequate Hydration/ Prevents Dehydration Maintain/ Improve Nutritional Status Progression Toward Outcome/Goals Progressing Safety- Improve/Maintain Start: 05/23/19 15:05 Freq: DAILY@0400,1600 Status: Active Target: 06/03/19 Protocol: Activity Type Activity Date Activity User E-Sign Co-Sign Detail Recorded Client Recorded Date Recorded By Document 05/28/19 08:10 [id number] [email or web address] 05/28/19 10:16 [id number] 05/28/19 08:10 PMRU Outcome: Safety Current Safety Outcome/Goals Remain Free of Injury or Harm Cooperates with Safety Measures for Least Restrictive Environment Prevent Falls/ Injury Other Safety Outcome/Goals PA/BA Progression Toward Outcome/Goals Progressing Medicine Note: Length of Stay: 1 week Anticipated Discharge Destination: Home Tentative Discharge Date: 06/04/19 Discharged to: Home
[2019-05-28] MEDS: Atorvastatin* 20 MG TAB PO SCH (16:29)
--- NOTE | 2019-05-28 16:57 | PN ---
Progress Note Date of Service: 05/28/19 Note: NAEEM ANTOINE was visited. Therapy notes read and reviewed. The patient was discussed in interdisciplinary team rounds. She is more aware of her confusion. She scored 16/30 on the MOCA. I have asked for OPERATING ROOM TECHNOLOGIST to do cog-ling therapy. Current Medications: Active Medications Generic Name Dose Route Start Last Admin Trade Name Freq PRN Reason Stop Dose Admin Acetaminophen 650 mg 05/23/19 15:20 05/28/19 13:04 Tylenol Tab* PO 650 mg Q6H PRN Administration MILD PAIN or TEMP > 100.4 Apixaban 2.5 mg 05/23/19 21:00 05/28/19 08:43 Eliquis* PO 2.5 mg BID ANDRY Administration Aspirin 81 mg 05/24/19 09:00 05/28/19 08:43 Aspirin Ec Tab* PO 81 mg DAILY ANDRY Administration Atorvastatin Calcium 20 mg 05/23/19 17:00 05/28/19 16:29 Lipitor* PO 20 mg 1700 ANDRY Administration Bisacodyl 10 mg 05/24/19 17:12 Dulcolax Supp* [place] DAILY PRN CONSTIPATION Diphenhydramine HCl 25 mg 05/27/19 12:06 05/27/19 20:07 Benadryl Po* PO 25 mg BEDTIME PRN Administration INSOMNIA Docusate Sodium 100 mg 05/23/19 21:00 05/28/19 08:43 Colace Cap* PO 100 mg BID ANDRY Administration Magnesium Hydroxide 30 ml 05/23/19 15:20 05/26/19 13:00 Milk Of Magnesia Liq* PO 30 ml Q6H PRN Administration CONSTIPATION Methocarbamol 500 mg 05/26/19 16:32 05/27/19 21:04 Robaxin Tab* PO 500 mg TID PRN Administration SPASMS Metoprolol Succinate 75 mg 05/23/19 21:00 05/27/19 20:09 Toprol Xl Tab* PO 75 mg BEDTIME ANDRY Administration Multivitamins/Minerals 1 cap 05/23/19 21:00 05/28/19 08:43 Preservision Areds 2 PO 1 cap BID ANDRY Administration Ondansetron HCl 4 mg 05/24/19 17:11 05/27/19 13:57 Zofran Odt Tab* PO 4 mg Q6H PRN Administration NAUSEA Pantoprazole Sodium 40 mg 05/23/19 21:00 05/28/19 08:43 Protonix Tab* PO 40 mg BID ANDRY Administration Senna 2 tab 05/24/19 21:00 05/27/19 20:06 Senokot Tab* PO 2 tab BEDTIME ANDRY Administration Tramadol HCl 50 mg 05/23/19 15:29 05/28/19 08:43 Ultram* PO 50 mg Q6H PRN Administration PAIN - MODERATE Vital Signs: Vital Signs Temp Pulse Resp BP Pulse Ox 98.2 F 78 18 143/59 96 05/28/19 15:56 05/28/19 15:56 05/28/19 15:56 05/28/19 15:56 05/28/19 15:56 Exam: GENERAL: In no distress LUNGS: Clear HEART: REg rhythm, occasional extra beats ABDOMEN: Soft +BS EXTREMITIES: Left knee wound C/D/I NEUROLOGIC: Oriented to self, place. Sensation intact. Moves all 4 extremities Assessment/Plan: 1. Left total knee replacement: PT/OT. WBAT. F/U with Dr. Decker 2. Delirium: Much better. Trying to hold opioids. OPERATING ROOM TECHNOLOGIST to do cog/ling Rx 3. CAD, S/P [place]: Toprol XL, ASA. May need to lower Toprol to 50 due to bradycardia 4. DVT Prophylaxis: Eliquis 5. Nausea: Zofran 6. Constipation: Bridgette LOONEY Senna 05/28/19 16:57
[2019-05-28] MEDS: diPHENhydraMINE PO* 25 MG PO PRN (20:08)
[2019-05-28] MEDS: Senna TAB 8.6 mg* TAB PO SCH (20:08)
[2019-05-28] MEDS: Metoprolol Succinate XL TAB* 50 MG PO SCH (20:09)
[2019-05-28] MEDS: Methocarbamol TAB* 500 MG PO PRN (21:36)
[2019-05-29] MEDS: traMADol TAB* 50 MG PO PRN ×2 (01:20→10:45)
[2019-05-29] MEDS: Multivitamins/Mins (NF) AREDS2 1 CAP CAP PO SCH ×2 (07:32→20:04)
[2019-05-29] MEDS: Acetaminophen TAB* 325 MG PO PRN ×2 (07:33→18:24)
[2019-05-29] MEDS: Docusate CAP* 100 MG PO SCH ×2 (07:33→20:03)
[2019-05-29] MEDS: Apixaban* 2.5 MG TAB PO SCH ×2 (07:33→20:03)
[2019-05-29] MEDS: Aspirin EC TAB* 81 MG TAB.EC PO SCH (07:33)
[2019-05-29] MEDS: Pantoprazole TAB * 40 MG TAB PO SCH ×2 (07:33→20:03)
[2019-05-29] MEDS: Atorvastatin* 20 MG TAB PO SCH (16:24)
--- NOTE | 2019-05-29 19:42 | PN ---
Progress Note Date of Service: 05/29/19 Note: NAEEM ANTOINE was visited. Therapy notes read and reviewed. Slightly more oriented, working with speech therapy. Her left leg is ecchymotic Current Medications: Active Medications Generic Name Dose Route Start Last Admin Trade Name Freq PRN Reason Stop Dose Admin Acetaminophen 650 mg 05/23/19 15:20 05/29/19 18:24 Tylenol Tab* PO 650 mg Q6H PRN Administration MILD PAIN or TEMP > 100.4 Apixaban 2.5 mg 05/23/19 21:00 05/29/19 07:33 Eliquis* PO 2.5 mg BID ANDRY Administration Aspirin 81 mg 05/24/19 09:00 05/29/19 07:33 Aspirin Ec Tab* PO 81 mg DAILY ANDRY Administration Atorvastatin Calcium 20 mg 05/23/19 17:00 05/29/19 16:24 Lipitor* PO 20 mg 1700 ANDRY Administration Bisacodyl 10 mg 05/24/19 17:12 Dulcolax Supp* [place] DAILY PRN CONSTIPATION Diphenhydramine HCl 25 mg 05/27/19 12:06 05/28/19 20:08 Benadryl Po* PO 25 mg BEDTIME PRN Administration INSOMNIA Docusate Sodium 100 mg 05/23/19 21:00 05/29/19 07:33 Colace Cap* PO 100 mg BID ANDRY Administration Magnesium Hydroxide 30 ml 05/23/19 15:20 05/26/19 13:00 Milk Of Magnesia Liq* PO 30 ml Q6H PRN Administration CONSTIPATION Methocarbamol 500 mg 05/26/19 16:32 05/28/19 21:36 Robaxin Tab* PO 500 mg TID PRN Administration SPASMS Metoprolol Succinate 75 mg 05/23/19 21:00 05/28/19 20:09 Toprol Xl Tab* PO 75 mg BEDTIME ANDRY Administration Multivitamins/Minerals 1 cap 05/23/19 21:00 05/29/19 07:32 Preservision Areds 2 PO 1 cap BID ANDRY Administration Ondansetron HCl 4 mg 05/24/19 17:11 05/27/19 13:57 Zofran Odt Tab* PO 4 mg Q6H PRN Administration NAUSEA Pantoprazole Sodium 40 mg 05/23/19 21:00 05/29/19 07:33 Protonix Tab* PO 40 mg BID ANDRY Administration Senna 2 tab 05/24/19 21:00 05/28/19 20:08 Senokot Tab* PO 2 tab BEDTIME ANDRY Administration Tramadol HCl 50 mg 05/23/19 15:29 05/29/19 10:45 Ultram* PO 50 mg Q6H PRN Administration PAIN - MODERATE Vital Signs: Vital Signs Temp Pulse Resp BP Pulse Ox 98.7 F 108 18 143/84 97 05/29/19 16:11 05/29/19 16:11 05/29/19 16:11 05/29/19 16:11 05/29/19 16:51 Exam: GENERAL: In no distress LUNGS: Clear HEART: REg rhythm, occasional extra beats ABDOMEN: Soft +BS EXTREMITIES: Left knee wound C/D/I NEUROLOGIC: Oriented to self, place. Sensation intact. Moves all 4 extremities Assessment/Plan: 1. Left total knee replacement: PT/OT. WBAT. F/U with Dr. Decker 2. Delirium: Much better. Trying to hold opioids. PLANT SAFETY ENGINEER to do cog/ling Rx 3. CAD, S/P CT: Toprol XL, ASA. May need to lower Toprol to 50 due to bradycardia 4. DVT Prophylaxis: Eliquis 5. Nausea: Zofran 6. Constipation: Bridgette LOONEY, Senna 05/29/19 19:48
[2019-05-29] MEDS: Metoprolol Succinate XL TAB* 50 MG PO SCH (20:02)
[2019-05-29] MEDS: Senna TAB 8.6 mg* TAB PO SCH (20:04)
[2019-05-29] MEDS: diPHENhydraMINE PO* 25 MG PO PRN (23:46)
[2019-05-30] MEDS: Acetaminophen TAB* 325 MG PO PRN ×3 (04:08→18:30)
[2019-05-30] MEDS: Pantoprazole TAB * 40 MG TAB PO SCH ×2 (08:30→20:04)
[2019-05-30] MEDS: Aspirin EC TAB* 81 MG TAB.EC PO SCH (08:30)
[2019-05-30] MEDS: Apixaban* 2.5 MG TAB PO SCH ×2 (08:30→20:04)
[2019-05-30] MEDS: Docusate CAP* 100 MG PO SCH ×2 (08:31→20:04)
[2019-05-30] MEDS: traMADol TAB* 50 MG PO PRN ×2 (08:31→21:12)
[2019-05-30] MEDS: Multivitamins/Mins (NF) AREDS2 1 CAP CAP PO SCH ×2 (08:32→20:05)
[2019-05-30] MEDS: Atorvastatin* 20 MG TAB PO SCH (18:02)
--- NOTE | 2019-05-30 19:39 | PN ---
Progress Note Date of Service: 05/30/19 Note: NAEEM ANTOINE was visited. Therapy notes read and reviewed. She has no complaints this evening and feels good. Still not completely oriented Current Medications: Active Medications Generic Name Dose Route Start Last Admin Trade Name Freq PRN Reason Stop Dose Admin Acetaminophen 650 mg 05/23/19 15:20 05/30/19 18:30 Tylenol Tab* PO 650 mg Q6H PRN Administration MILD PAIN or TEMP > 100.4 Apixaban 2.5 mg 05/23/19 21:00 05/30/19 08:30 Eliquis* PO 2.5 mg BID ANDRY Administration Aspirin 81 mg 05/24/19 09:00 05/30/19 08:30 Aspirin Ec Tab* PO 81 mg DAILY ANDRY Administration Atorvastatin Calcium 20 mg 05/23/19 17:00 05/30/19 18:02 Lipitor* PO 20 mg 1700 ANDRY Administration Bisacodyl 10 mg 05/24/19 17:12 Dulcolax Supp* [place] DAILY PRN CONSTIPATION Diphenhydramine HCl 25 mg 05/27/19 12:06 05/29/19 23:46 Benadryl Po* PO 25 mg BEDTIME PRN Administration INSOMNIA Docusate Sodium 100 mg 05/23/19 21:00 05/30/19 08:31 Colace Cap* PO 100 mg BID ANDRY Administration Magnesium Hydroxide 30 ml 05/23/19 15:20 05/26/19 13:00 Milk Of Magnesia Liq* PO 30 ml Q6H PRN Administration CONSTIPATION Methocarbamol 500 mg 05/26/19 16:32 05/28/19 21:36 Robaxin Tab* PO 500 mg TID PRN Administration SPASMS Metoprolol Succinate 75 mg 05/23/19 21:00 05/29/19 20:02 Toprol Xl Tab* PO 75 mg BEDTIME ANDRY Administration Multivitamins/Minerals 1 cap 05/23/19 21:00 05/30/19 08:32 Preservision Areds 2 PO 1 cap BID ANDRY Administration Ondansetron HCl 4 mg 05/24/19 17:11 05/27/19 13:57 Zofran Odt Tab* PO 4 mg Q6H PRN Administration NAUSEA Pantoprazole Sodium 40 mg 05/23/19 21:00 05/30/19 08:30 Protonix Tab* PO 40 mg BID ANDRY Administration Senna 2 tab 05/24/19 21:00 05/29/19 20:04 Senokot Tab* PO 2 tab BEDTIME ANDRY Administration Tramadol HCl 50 mg 05/23/19 15:29 05/30/19 08:31 Ultram* PO 50 mg Q6H PRN Administration PAIN - MODERATE Vital Signs: Vital Signs Temp Pulse Resp BP Pulse Ox 97.6 F 78 18 131/66 98 05/30/19 16:42 05/30/19 16:42 05/30/19 16:42 05/30/19 16:42 05/30/19 18:37 Exam: GENERAL: In no distress LUNGS: Clear HEART: REg rhythm, occasional extra beats ABDOMEN: Soft +BS EXTREMITIES: Left knee wound C/D/I NEUROLOGIC: Oriented to self, place. Sensation intact. Moves all 4 extremities Assessment/Plan: 1. Left total knee replacement: PT/OT. WBAT. F/U with Dr. Decker 2. Delirium: Much better. Trying to hold opioids. FURNACE TENDER to do cog/ling Rx 3. CAD, S/P [place]: Toprol XL, ASA. 4. DVT Prophylaxis: Eliquis 5. Nausea: Zofran 6. Constipation: MOM, Colf[place], Senna 05/30/19 19:39 05/30/19 19:39
[2019-05-30] MEDS: Metoprolol Succinate XL TAB* 50 MG PO SCH (20:04)
[2019-05-30] MEDS: Senna TAB 8.6 mg* TAB PO SCH (20:04)
[2019-05-30] MEDS: diPHENhydraMINE PO* 25 MG PO PRN (23:59)
[2019-05-31] MEDS: Acetaminophen TAB* 325 MG PO PRN ×3 (02:33→19:32)
[2019-05-31 07:19] LABS: ABS Basophils 0.1 10^3/ul (0-0.2); ABS Eosinophils 0.3 10^3/ul (0-0.6); ABS Lymphocytes 1.2 10^3/ul (1.0-4.8); ABS Monocytes 0.9 10^3/ul (0-0.8); ABS Neutrophils 4.3 10^3/ul (1.5-7.7); Eosinophil % 4.4 %; Hematocrit 30 % (35-47); Hemoglobin 10.3 g/dL (12.0-16.0); Lymphocyte % 18.1 %; Mean Corpuscular HGB Conc 34 g/dL (31-36); Mean Corpuscular Hemoglobin 33 pg (27-31); Mean Corpuscular Volume 96 fL (80-97); Mean Platelet Volume 6.8 fL (7.4-10.4); Platelet Count 427 10^3/uL (150-450); Red Blood Count 3.15 10^6 /uL (3.70-4.87); Red Cell Distribution Width 14 % (10-15); White Blood Count 6.7 10^3/uL (3.5-10.8)
[2019-05-31 07:36] LABS: Albumin 3.7 g/dL (3.2-5.2); Albumin/Globulin Ratio 1.5 (1-3); BUN/Creatinine Ratio 18.7 (8-20); Calcium 8.7 mg/dL (8.6-10.3); EGFR African American 89.1 (>60); EGFR Non-African American 73.6 (>60); Globulin 2.5 g/dL (2-4); Potassium 3.8 mmol/L (3.5-5.0); Total Bilirubin 1.6 mg/dL (0.2-1.0); Total Protein 6.2 g/dL (6.4-8.9)
[2019-05-31] MEDS: Multivitamins/Mins (NF) AREDS2 1 CAP CAP PO SCH ×2 (08:34→19:33)
[2019-05-31] MEDS: Apixaban* 2.5 MG TAB PO SCH ×2 (08:35→19:33)
[2019-05-31] MEDS: Docusate CAP* 100 MG PO SCH ×2 (08:41→19:35)
[2019-05-31] MEDS: Pantoprazole TAB * 40 MG TAB PO SCH ×2 (08:41→19:33)
[2019-05-31] MEDS: Aspirin EC TAB* 81 MG TAB.EC PO SCH (08:41)
[2019-05-31] MEDS: Ondansetron ODT TAB* 4 MG PO PRN (13:20)
--- NOTE | 2019-05-31 14:28 | PN ---
Progress Note Date of Service: 05/31/19 Note: NAEEM Chavez ANTOINE was visited. Therapy notes read and reviewed. Got slightly nauseated after therapy today. May be a little more confused. Will try to talk to granddaughter Current Medications: Active Medications Generic Name Dose Route Start Last Admin Trade Name Freq PRN Reason Stop Dose Admin Acetaminophen 650 mg 05/23/19 15:20 05/31/19 08:34 Tylenol Tab* PO 650 mg Q6H PRN Administration MILD PAIN or TEMP > 100.4 Apixaban 2.5 mg 05/23/19 21:00 05/31/19 08:35 Eliquis* PO 2.5 mg BID ANDRY Administration Aspirin 81 mg 05/24/19 09:00 05/31/19 08:41 Aspirin Ec Tab* PO 81 mg DAILY ANDRY Administration Atorvastatin Calcium 20 mg 05/23/19 17:00 05/30/19 18:02 Lipitor* PO 20 mg 1700 ANDRY Administration Bisacodyl 10 mg 05/24/19 17:12 Dulcolax Supp* [place] DAILY PRN CONSTIPATION Diphenhydramine HCl 25 mg 05/27/19 12:06 05/30/19 23:59 Benadryl Po* PO 25 mg BEDTIME PRN Administration INSOMNIA Docusate Sodium 100 mg 05/23/19 21:00 05/31/19 08:41 Colace Cap* PO 100 mg BID ANDRY Administration Magnesium Hydroxide 30 ml 05/23/19 15:20 05/26/19 13:00 Milk Of Magnesia Liq* PO 30 ml Q6H PRN Administration CONSTIPATION Methocarbamol 500 mg 05/26/19 16:32 05/28/19 21:36 Robaxin Tab* PO 500 mg TID PRN Administration SPASMS Metoprolol Succinate 75 mg 05/23/19 21:00 05/30/19 20:04 Toprol Xl Tab* PO 75 mg BEDTIME ANDRY Administration Multivitamins/Minerals 1 cap 05/23/19 21:00 05/31/19 08:34 Preservision Areds 2 PO 1 cap BID ANDRY Administration Ondansetron HCl 4 mg 05/24/19 17:11 05/31/19 13:20 Zofran Odt Tab* PO 4 mg Q6H PRN Administration NAUSEA Pantoprazole Sodium 40 mg 05/23/19 21:00 05/31/19 08:41 Protonix Tab* PO 40 mg BID ANDRY Administration Senna 2 tab 05/24/19 21:00 05/30/19 20:04 Senokot Tab* PO 2 tab BEDTIME ANDRY Administration Tramadol HCl 50 mg 05/23/19 15:29 05/30/19 21:12 Ultram* PO 50 mg Q6H PRN Administration PAIN - MODERATE Vital Signs: Vital Signs Temp Pulse Resp BP Pulse Ox 98.4 F 121 20 138/75 97 05/31/19 13:30 05/31/19 13:30 05/31/19 13:30 05/31/19 13:30 05/31/19 13:30 Lab Results: Laboratory Results - last 24 hr 05/31/19 05/31/19 06:52 06:52 WBC 6.7 RBC 3.15 L Hgb 10.3 L Hct 30 L MCV 96 MCH 33 H MCHC 34 RDW 14 Plt Count 427 MPV 6.8 L Neut % (Auto) 63.1 Lymph % (Auto) 18.1 [place] % (Auto) 13.5 Eos % (Auto) 4.4 Baso % (Auto) 0.9 Absolute Neuts (auto) 4.3 Absolute Lymphs (auto) 1.2 Absolute Monos (auto) 0.9 H Absolute Eos (auto) 0.3 Absolute Basos (auto) 0.1 Absolute Nucleated RBC 0.0 Nucleated RBC % 0.0 Sodium 139 Potassium 3.8 Chloride 106 Carbon Dioxide 26 Anion Gap 7 BUN 14 Creatinine 0.75 Est GFR ( Amer) 89.1 Est GFR (Non-Af Amer) 73.6 BUN/Creatinine Ratio 18.7 Glucose 108 H Calcium 8.7 Total Bilirubin 1.60 H AST 24 ALT 13 Alkaline Phosphatase 67 Total Protein 6.2 L Albumin 3.7 Globulin 2.5 Albumin/Globulin Ratio 1.5 Exam: GENERAL: In no distress LUNGS: Clear HEART: REg rhythm, occasional extra beats ABDOMEN: Soft +BS EXTREMITIES: Left knee wound C/D/I NEUROLOGIC: Oriented to self, place. Sensation intact. Moves all 4 extremities Assessment/Plan: 1. Left total knee replacement: PT/OT. WBAT. F/U with Dr. Decker 2. Delirium: Much better. Trying to hold opioids. HOT WOUND SPRING PRODUCTION SUPERVISOR to do cog/ling Rx 3. CAD, S/P [place]: Toprol XL, ASA. 4. DVT Prophylaxis: Eliquis 5. Nausea: Zofran 6. Constipation: Bridgette LOONEY Senna 05/31/19 14:28
[2019-05-31] MEDS: Atorvastatin* 20 MG TAB PO SCH (16:42)
[2019-05-31] MEDS: Metoprolol Succinate XL TAB* 50 MG PO SCH (19:34)
[2019-05-31] MEDS: Senna TAB 8.6 mg* TAB PO SCH (19:35)
[2019-06-01] MEDS: diPHENhydraMINE PO* 25 MG PO PRN ×2 (00:14→21:10)
[2019-06-01] MEDS: traMADol TAB* 50 MG PO PRN ×3 (01:04→21:10)
[2019-06-01] MEDS: Acetaminophen TAB* 325 MG PO PRN ×3 (02:45→16:25)
[2019-06-01] MEDS: Pantoprazole TAB * 40 MG TAB PO SCH ×2 (09:55→21:03)
[2019-06-01] MEDS: Aspirin EC TAB* 81 MG TAB.EC PO SCH (09:55)
[2019-06-01] MEDS: Docusate CAP* 100 MG PO SCH ×2 (09:55→21:04)
[2019-06-01] MEDS: Apixaban* 2.5 MG TAB PO SCH ×2 (09:55→21:04)
[2019-06-01] MEDS: Multivitamins/Mins (NF) AREDS2 1 CAP CAP PO SCH ×2 (09:56→21:05)
--- NOTE | 2019-06-01 11:00 | PN ---
Progress Note Date of Service: 06/01/19 Note: NAEEM ANTOINE was visited. Therapy notes read and reviewed. She has no complaints other than still slightly confused Current Medications: Active Medications Generic Name Dose Route Start Last Admin Trade Name Freq PRN Reason Stop Dose Admin Acetaminophen 650 mg 05/23/19 15:20 06/01/19 10:19 Tylenol Tab* PO 650 mg Q6H PRN Administration MILD PAIN or TEMP > 100.4 Apixaban 2.5 mg 05/23/19 21:00 06/01/19 09:55 Eliquis* PO 2.5 mg BID ANDRY Administration Aspirin 81 mg 05/24/19 09:00 06/01/19 09:55 Aspirin Ec Tab* PO 81 mg DAILY ANDRY Administration Atorvastatin Calcium 20 mg 05/23/19 17:00 05/31/19 16:42 Lipitor* PO 20 mg 1700 ANDRY Administration Bisacodyl 10 mg 05/24/19 17:12 Dulcolax Supp* [place] DAILY PRN CONSTIPATION Diphenhydramine HCl 25 mg 05/27/19 12:06 06/01/19 00:14 Benadryl Po* PO 25 mg BEDTIME PRN Administration INSOMNIA Docusate Sodium 100 mg 05/23/19 21:00 06/01/19 09:55 Colace Cap* PO 100 mg BID ANDRY Administration Magnesium Hydroxide 30 ml 05/23/19 15:20 05/26/19 13:00 Milk Of Magnesia Liq* PO 30 ml Q6H PRN Administration CONSTIPATION Methocarbamol 500 mg 05/26/19 16:32 05/28/19 21:36 Robaxin Tab* PO 500 mg TID PRN Administration SPASMS Metoprolol Succinate 75 mg 05/23/19 21:00 05/31/19 19:34 Toprol Xl Tab* PO 75 mg BEDTIME ANDRY Administration Multivitamins/Minerals 1 cap 05/23/19 21:00 06/01/19 09:56 Preservision Areds 2 PO 1 cap BID ANDRY Administration Ondansetron HCl 4 mg 05/24/19 17:11 05/31/19 13:20 Zofran Odt Tab* PO 4 mg Q6H PRN Administration NAUSEA Pantoprazole Sodium 40 mg 05/23/19 21:00 06/01/19 09:55 Protonix Tab* PO 40 mg BID ANDRY Administration Senna 2 tab 05/24/19 21:00 05/31/19 19:35 Senokot Tab* PO Not Given BEDTIME ANDRY Tramadol HCl 50 mg 05/23/19 15:29 06/01/19 06:59 Ultram* PO 50 mg Q6H PRN Administration PAIN - MODERATE Vital Signs: Vital Signs Temp Pulse Resp BP Pulse Ox 98.6 F 61 20 138/59 93 06/01/19 06:13 06/01/19 06:13 06/01/19 06:59 06/01/19 06:13 06/01/19 06:13 Exam: GENERAL: In no distress LUNGS: Clear HEART: Reg rhythm, occasional extra beats ABDOMEN: Soft +BS EXTREMITIES: Left knee wound C/D/I NEUROLOGIC: Oriented to self, place. Sensation intact. Moves all 4 extremities Assessment/Plan: 1. Left total knee replacement: PT/OT. WBAT. F/U with Dr. Decker 2. Delirium: Much better. Trying to hold opioids. [employer]END[employer] to do cog/ling Rx 3. CAD, S/P [place]: Toprol XL, ASA. 4. DVT Prophylaxis: Eliquis 5. Nausea: Zofran 6. Constipation: MOM, Colfederica, Senna 06/01/19 11:00
[2019-06-01] MEDS: Atorvastatin* 20 MG TAB PO SCH (18:20)
[2019-06-01] MEDS: Metoprolol Succinate XL TAB* 50 MG PO SCH (21:06)
[2019-06-01] MEDS: Senna TAB 8.6 mg* TAB PO SCH (21:06)
[2019-06-02] MEDS: traMADol TAB* 50 MG PO PRN ×2 (03:14→18:11)
[2019-06-02] MEDS: Pantoprazole TAB * 40 MG TAB PO SCH ×2 (08:43→20:55)
[2019-06-02] MEDS: Docusate CAP* 100 MG PO SCH ×2 (08:43→20:55)
[2019-06-02] MEDS: Aspirin EC TAB* 81 MG TAB.EC PO SCH (08:43)
[2019-06-02] MEDS: Apixaban* 2.5 MG TAB PO SCH ×2 (08:43→20:55)
[2019-06-02] MEDS: Multivitamins/Mins (NF) AREDS2 1 CAP CAP PO SCH ×2 (08:44→20:54)
[2019-06-02] MEDS: Acetaminophen TAB* 325 MG PO PRN ×2 (10:07→20:56)
--- NOTE | 2019-06-02 15:31 | PN ---
Progress Note Date of Service: 06/02/19 Note: NAEEM ANTOINE was visited. Nursing notes read and reviewed. She has no complaints. Not quite at baseline. Current Medications: Active Medications Generic Name Dose Route Start Last Admin Trade Name Freq PRN Reason Stop Dose Admin Acetaminophen 650 mg 05/23/19 15:20 06/02/19 10:07 Tylenol Tab* PO 650 mg Q6H PRN Administration MILD PAIN or TEMP > 100.4 Apixaban 2.5 mg 05/23/19 21:00 06/02/19 08:43 Eliquis* PO 2.5 mg BID ANDRY Administration Aspirin 81 mg 05/24/19 09:00 06/02/19 08:43 Aspirin Ec Tab* PO 81 mg DAILY ANDRY Administration Atorvastatin Calcium 20 mg 05/23/19 17:00 06/01/19 18:20 Lipitor* PO 20 mg 1700 ANDRY Administration Bisacodyl 10 mg 05/24/19 17:12 Dulcolax Supp* [place] DAILY PRN CONSTIPATION Diphenhydramine HCl 25 mg 05/27/19 12:06 06/01/19 21:10 Benadryl Po* PO 25 mg BEDTIME PRN Administration INSOMNIA Docusate Sodium 100 mg 05/23/19 21:00 06/02/19 08:43 Colace Cap* PO 100 mg BID ANDRY Administration Magnesium Hydroxide 30 ml 05/23/19 15:20 05/26/19 13:00 Milk Of Magnesia Liq* PO 30 ml Q6H PRN Administration CONSTIPATION Methocarbamol 500 mg 05/26/19 16:32 05/28/19 21:36 Robaxin Tab* PO 500 mg TID PRN Administration SPASMS Metoprolol Succinate 75 mg 05/23/19 21:00 06/01/19 21:06 Toprol Xl Tab* PO 75 mg BEDTIME ANDRY Administration Multivitamins/Minerals 1 cap 05/23/19 21:00 06/02/19 08:44 Preservision Areds 2 PO 1 cap BID ANDRY Administration Ondansetron HCl 4 mg 05/24/19 17:11 05/31/19 13:20 Zofran Odt Tab* PO 4 mg Q6H PRN Administration NAUSEA Pantoprazole Sodium 40 mg 05/23/19 21:00 06/02/19 08:43 Protonix Tab* PO 40 mg BID ANDRY Administration Senna 2 tab 05/24/19 21:00 06/01/19 21:06 Senokot Tab* PO Not Given BEDTIME ANDRY Tramadol HCl 50 mg 05/23/19 15:29 06/02/19 03:14 Ultram* PO 50 mg Q6H PRN Administration PAIN - MODERATE Vital Signs: Vital Signs Temp Pulse Resp BP Pulse Ox 99.4 F 68 18 143/72 93 06/02/19 06:20 06/02/19 06:45 06/02/19 08:00 06/02/19 06:20 06/02/19 08:00 Exam: GENERAL: In no distress LUNGS: Clear HEART: Reg rhythm, occasional extra beats ABDOMEN: Soft +BS EXTREMITIES: Left knee wound C/D/I NEUROLOGIC: Oriented to self, place. Sensation intact. Moves all 4 extremities Assessment/Plan: 1. Left total knee replacement: PT/OT. WBAT. F/U with Dr. Decker 2. Delirium: Much better. Trying to hold opioids. HOSE TESTER for cog/ling Rx 3. CAD, S/P [place]: Toprol XL, ASA. 4. DVT Prophylaxis: Eliquis 5. Nausea: Zofran 6. Constipation: MOM, Colfederica, Senna 06/02/19 15:32
[2019-06-02] MEDS: Atorvastatin* 20 MG TAB PO SCH (16:48)
[2019-06-02] MEDS: Senna TAB 8.6 mg* TAB PO SCH (20:55)
[2019-06-02] MEDS: Metoprolol Succinate XL TAB* 50 MG PO SCH (20:55)
[2019-06-02] MEDS: diPHENhydraMINE PO* 25 MG PO PRN (23:40)
[2019-06-02] MEDS: Methocarbamol TAB* 500 MG PO PRN (23:40)
[2019-06-03] MEDS: Acetaminophen TAB* 325 MG PO PRN ×3 (05:30→23:32)
[2019-06-03] MEDS: Apixaban* 2.5 MG TAB PO SCH ×2 (08:43→20:20)
[2019-06-03] MEDS: Multivitamins/Mins (NF) AREDS2 1 CAP CAP PO SCH ×2 (08:43→20:20)
[2019-06-03] MEDS: Docusate CAP* 100 MG PO SCH ×2 (08:43→20:20)
[2019-06-03] MEDS: Aspirin EC TAB* 81 MG TAB.EC PO SCH (08:44)
[2019-06-03] MEDS: Pantoprazole TAB * 40 MG TAB PO SCH ×2 (08:44→20:20)
[2019-06-03] MEDS: traMADol TAB* 50 MG PO PRN ×2 (08:45→20:19)
[2019-06-03] MEDS: Atorvastatin* 20 MG TAB PO SCH (16:27)
[2019-06-03 16:59] LABS: Urine Appearance Clear; Urine Bacteria Absent (Absent); Urine Bilirubin Negative (Negative); Urine Blood Negative (Negative); Urine Color Yellow; Urine Glucose Negative (Negative); Urine Ketones Negative (Negative); Urine Nitrite Negative (Negative); Urine Protein Negative (Negative); Urine Red Blood Cell 2+(6-10/hpf) (Absent); Urine Specific Gravity 1.011 (1.010-1.030); Urine Squamous Epithelial Cell Present (Absent); Urine Urobilinogen Negative (Negative); Urine White Blood Cell 2+(11-20/hpf) (Absent)
--- NOTE | 2019-06-03 18:02 | PN ---
Progress Note Date of Service: 06/03/19 Note: NAEEM ANTOINE was visited. Therapy notes read and reviewed. She was more confused last night. A U/A was sent which was equivocal. There was some blood in the specimen. No bacteria seen. Blood may have been read as there due to presence of ascorbic acid. She will likely go home tomorrow Current Medications: Active Medications Generic Name Dose Route Start Last Admin Trade Name Freq PRN Reason Stop Dose Admin Acetaminophen 650 mg 05/23/19 15:20 06/03/19 13:23 Tylenol Tab* PO 650 mg Q6H PRN Administration MILD PAIN or TEMP > 100.4 Apixaban 2.5 mg 05/23/19 21:00 06/03/19 08:43 Eliquis* PO 2.5 mg BID ANDRY Administration Aspirin 81 mg 05/24/19 09:00 06/03/19 08:44 Aspirin Ec Tab* PO 81 mg DAILY ANDRY Administration Atorvastatin Calcium 20 mg 05/23/19 17:00 06/03/19 16:27 Lipitor* PO 20 mg 1700 ANDRY Administration Bisacodyl 10 mg 05/24/19 17:12 Dulcolax Supp* [place] DAILY PRN CONSTIPATION Diphenhydramine HCl 25 mg 05/27/19 12:06 06/02/19 23:40 Benadryl Po* PO 25 mg BEDTIME PRN Administration INSOMNIA Docusate Sodium 100 mg 05/23/19 21:00 06/03/19 08:43 Colace Cap* PO 100 mg BID ANDRY Administration Magnesium Hydroxide 30 ml 05/23/19 15:20 05/26/19 13:00 Milk Of Magnesia Liq* PO 30 ml Q6H PRN Administration CONSTIPATION Methocarbamol 500 mg 05/26/19 16:32 06/02/19 23:40 Robaxin Tab* PO 500 mg TID PRN Administration SPASMS Metoprolol Succinate 50 mg 06/03/19 21:00 Toprol Xl Tab* PO BEDTIME ANDRY Multivitamins/Minerals 1 cap 05/23/19 21:00 06/03/19 08:43 Preservision Areds 2 PO 1 cap BID ANDRY Administration Ondansetron HCl 4 mg 05/24/19 17:11 05/31/19 13:20 Zofran Odt Tab* PO 4 mg Q6H PRN Administration NAUSEA Pantoprazole Sodium 40 mg 05/23/19 21:00 06/03/19 08:44 Protonix Tab* PO 40 mg BID ANDRY Administration Senna 2 tab 05/24/19 21:00 06/02/19 20:55 Senokot Tab* PO 2 tab BEDTIME ANDRY Administration Tramadol HCl 50 mg 05/23/19 15:29 06/03/19 08:45 Ultram* PO 50 mg Q6H PRN Administration PAIN - MODERATE Vital Signs: Vital Signs Temp Pulse Resp BP Pulse Ox 98.2 F 43 26 128/53 96 06/03/19 17:58 06/03/19 17:58 06/03/19 17:58 06/03/19 17:58 06/03/19 17:58 Lab Results: Laboratory Results - last 24 hr 06/03/19 16:15 Urine Color Yellow Urine Appearance Clear Urine pH 5.0 Ur Specific [place] 1.011 Urine Protein Negative Urine Ketones Negative Urine Blood Negative Urine Nitrate Negative Urine Bilirubin Negative Urine Urobilinogen Negative Ur Leukocyte Esterase 1+ A Urine WBC (Auto) 2+(11-20/hpf) A Urine RBC (Auto) 2+(6-10/hpf) A Ur Squamous Epith Cells Present A Urine Bacteria Absent Urine Glucose Negative Urine Ascorbic Acid * A Exam: GENERAL: In no distress LUNGS: Clear HEART: Reg rhythm, occasional extra beats ABDOMEN: Soft +BS EXTREMITIES: Left knee wound C/D/I NEUROLOGIC: Oriented to self, place. Sensation intact. Moves all 4 extremities Assessment/Plan: 1. Left total knee replacement: PT/OT. WBAT. F/U with Dr. Decker 2. Delirium: Much better. Trying to hold opioids. [employer]OMOTIVE for cog/ling Rx 3. CAD, S/P [place]: Toprol XL, ASA. 4. DVT Prophylaxis: Eliquis 5. Nausea: Zofran 6. Constipation: MOM, Colace, Senna 06/03/19 18:03
[2019-06-03] MEDS: Senna TAB 8.6 mg* TAB PO SCH (20:21)
[2019-06-03] MEDS ORDERED: Metoprolol Succinate XL TAB* 50 MG PO SCH (21:00)
[2019-06-03] MEDS: diPHENhydraMINE PO* 25 MG PO PRN (23:32)
[2019-06-04] MEDS: traMADol TAB* 50 MG PO PRN ×2 (04:22→10:09)
[2019-06-04 06:50] VITALS: BP 142/72
[2019-06-04] MEDS: Ondansetron ODT TAB* 4 MG PO PRN (09:06)
[2019-06-04] MEDS: Apixaban* 2.5 MG TAB PO SCH (10:10)
[2019-06-04] MEDS: Docusate CAP* 100 MG PO SCH (10:10)
[2019-06-04] MEDS: Pantoprazole TAB * 40 MG TAB PO SCH (10:10)
[2019-06-04] MEDS: Aspirin EC TAB* 81 MG TAB.EC PO SCH (10:10)
[2019-06-04] MEDS: Multivitamins/Mins (NF) AREDS2 1 CAP CAP PO SCH (10:10)
--- NOTE | 2019-06-04 20:36 | DS ---
CC: Dr. Dasilva * DISCHARGE SUMMARY: DATE OF ADMISSION: 05/23/19 DATE OF DISCHARGE: 06/04/19 DISCHARGE DIAGNOSES: 1. Left total knee replacement. 2. Coronary artery disease. 3. History of myocardial infarct. 4. Postoperative delirium. 5. Hypertension. 6. Hyperlipidemia. 7. Gastroesophageal reflux disease. HISTORY OF ILLNESS AND HOSPITAL COURSE: For complete history of the events leading up to her rehab stay, please see the history and physical dictated by me on 05/23/19. While on the rehab unit, the patient initially was quite confused. She had a gradual clearing in her sensorium and mental status. The patient had a urinalysis checked to see if that was contributing to confusion, and her urine was clean. The patient was maintained on Eliquis for DVT prophylaxis. The patient otherwise was medically stable. She was seen by physical therapy and occupational therapy and made good gains with both disciplines. With physical therapy at the time of admission, the patient required contact guard to min assist for a transfer. She was able to ambulate 90 feet with min assist. With occupational therapy at the time of admission, the patient required supervision for upper body dressing, total assist for lower body dressing, max assist for toileting, mod assist for toilet transfers and moderate amount of assistance for bathing. By the time of discharge, the patient was contact guard for bathing, contact guard for dressing herself, contact guard for toileting, contact guard for transfers, contact guard ambulating 150 feet, contact guard going up and down 10 steps. The patient also saw speech therapy. She was noted to have moderate deficits in attention and memory. The patient's grandson and grand [id number] were brought in for family training prior to discharge. The patient's family felt they could provide 24-hour assistance after discharge. The patient was discharged home with her family on 06/04/19. DISCHARGE DIET: Regular. DISCHARGE MEDICATIONS: 1. Eliquis 2.5 mg twice daily for 2 weeks. 2. Aspirin 81 mg daily. 3. Robaxin 500 mg 3 times a day as needed. 4. Toprol XL 50 mg at bedtime. 5. Tramadol 50 mg every 6 hours as needed, not to exceed 2 tablets per day. 6. Omeprazole 20 mg twice daily. 7. Simvastatin 40 mg orally at bedtime. 8. Aldactone 12.5 mg in the morning. SERVICES AFTER DISCHARGE: Through [facility]. The patient will have home physical therapy and a home health aide. Follow up with Dr. Dasilva in 7 to 10 days. She will also follow up with her orthopedic surgeon, Dr. Decker in 1 to 3 days. CONDITION AT DISCHARGE: The patient was discharged home in stable condition. TIME SPENT: Time for this discharge was approximately 50 minutes, greater than half of that was spent with the patient and her grand [id number] explaining post-rehabilitation therapies, services, and medications. [id number] #: [id number]
== END 2019-06-04 13:45 | disposition home health service (06) | DRG 561 ==
LOC: PMRU 14:40
PROVIDERS: ADMIT Physical Medicine & Rehabilitation; ATTEND Physical Medicine & Rehabilitation
PROC: F07Z5ZZ Bed Mobility Treatment (ICD-10-PCS; principal; 2019-05-23)
PROC: F07Z9ZZ Gait Training/Functional Ambulation Treatment (ICD-10-PCS; 2019-05-23)
PROC: F07Z8ZZ Transfer Training Treatment (ICD-10-PCS; 2019-05-23)
PROC: F08Z0ZZ Bathing/Showering Techniques Treatment (ICD-10-PCS; 2019-05-23)
PROC: F08Z1ZZ Dressing Techniques Treatment (ICD-10-PCS; 2019-05-23)
PROC: F08Z3ZZ Feeding/Eating Treatment (ICD-10-PCS; 2019-05-23)
PROC: F08Z4ZZ Home Management Treatment (ICD-10-PCS; 2019-05-23)
DX: Z47.1 Aftercare following joint replacement surgery (principal); Z96.652 Presence of left artificial knee joint; I25.10 Atherosclerotic heart disease of native coronary artery without angina pectoris; I10 Essential (primary) hypertension; E78.5 Hyperlipidemia, unspecified; K21.9 Gastro-esophageal reflux disease without esophagitis; R41.0 Disorientation, unspecified; K59.00 Constipation, unspecified; R11.0 Nausea; Z96.651 Presence of right artificial knee joint; I25.2 Old myocardial infarction; Z95.5 Presence of coronary angioplasty implant and graft; Z79.82 Long term (current) use of aspirin; Z79.899 Other long term (current) drug therapy; Z91.040 Latex allergy status
CPT/HCPCS: 36415; 80053; 81003; 81015; 85025; 87086; A9270-GY; G0515-GO

== ENCOUNTER 2020-11-02 17:49 | Inpatient (IN) ==
[2020-11-02 20:14] LABS: ABS Basophils 0.1 10^3/ul (0-0.2); ABS Lymphocytes 1.7 10^3/ul (1.0-4.8); ABS Monocytes 1.5 10^3/ul (0-0.8); ABS Neutrophils 11.8 10^3/ul (1.5-7.7); Eosinophil % 0.1 %; Hematocrit 38 % (35-47); Hemoglobin 12.6 g/dL (12.0-16.0); Lymphocyte % 11.4 %; Mean Corpuscular HGB Conc 33 g/dL (31-36); Mean Corpuscular Hemoglobin 31 pg (27-31); Mean Corpuscular Volume 92 fL (80-97); Mean Platelet Volume 7.8 fL (7.4-10.4); Platelet Count 380 10^3/uL (150-450); Red Blood Count 4.12 10^6 /uL (3.70-4.87); Red Cell Distribution Width 14 % (10-15); White Blood Count 15.1 10^3/uL (3.5-10.8)
[2020-11-02 20:29] LABS: Albumin 3.6 g/dL (3.2-5.2); Albumin/Globulin Ratio 1.2 (1-3); BUN/Creatinine Ratio 20.6 (8-20); C Reactive Protein 240.81 mg/L (<8.01); Calcium 8.9 mg/dL (8.6-10.3); EGFR Non-African American 54.6 (>60); Potassium 4.2 mmol/L (3.5-5.0); Total Bilirubin 0.6 mg/dL (0.2-1.0); Total Protein 6.6 g/dL (6.4-8.9)
[2020-11-03 01:18] LABS: Urine Appearance Clear; Urine Color Orange; Urine Specific Gravity < 1.010 (1.010-1.030)
[2020-11-03 02:08] LABS: Urine Bacteria 1+ (Absent); Urine Red Blood Cell Trace(0-2/hpf) (Absent); Urine Squamous Epithelial Cell Present (Absent); Urine White Blood Cell Trace(0-5/hpf) (Absent)
[2020-11-03] MEDS ORDERED: Ondansetron 4 mg VIAL 2 MG/ML 2 ml VIAL IV ONE (03:11)
[2020-11-03] MEDS ORDERED: Ondansetron ODT 4 mg TAB 4 MG TAB ONE (03:12)
[2020-11-03] MEDS ORDERED: cefTRIAXone 1 gm/50 mL NS BAG 1 GM/50 ML BAG IV ONE (03:23)
[2020-11-03] MEDS ORDERED: cefTRIAXone 1 gm/50 mL NS BAG 1 GM/50 ML BAG IVPB SCH (06:00)
[2020-11-03] MEDS ORDERED: Vancomycin 1,000 MG in NS 0.9% 250 ml 250 ML IVPB ONE (07:15)
[2020-11-03] MEDS ORDERED: Vancomycin per Pharmacy 1 EA NOTE FOLLOW UP SCH (08:00)
[2020-11-03] MEDS: NS 0.9% 1000 ml BAG 1,000 ML IV SCH (08:49)
[2020-11-03] MEDS: Cefepime 2 GM in Dextrose 2 GM/50 ML BAG IV SCH ×2 (08:49→20:54)
[2020-11-03] MEDS: Enoxaparin 40 MG/0.4 ML SYR SUBCUT SCH (08:52)
[2020-11-03] MEDS: Aspirin EC 81 mg TAB.EC (enteric coated) PO SCH (08:57)
[2020-11-03] MEDS: Multivitamins/Minerals TAB PO SCH ×2 (09:40→20:54)
[2020-11-03 10:17] LABS: ABS Basophils 0.1 10^3/ul (0-0.2); ABS Lymphocytes 1.5 10^3/ul (1.0-4.8); ABS Monocytes 1.1 10^3/ul (0-0.8); ABS Neutrophils 7.8 10^3/ul (1.5-7.7); Eosinophil % 0.3 %; Hematocrit 35 % (35-47); Hemoglobin 11.7 g/dL (12.0-16.0); Lymphocyte % 13.9 %; Mean Corpuscular HGB Conc 33 g/dL (31-36); Mean Corpuscular Hemoglobin 30 pg (27-31); Mean Corpuscular Volume 91 fL (80-97); Mean Platelet Volume 7.4 fL (7.4-10.4); Platelet Count 338 10^3/uL (150-450); Red Blood Count 3.87 10^6 /uL (3.70-4.87); Red Cell Distribution Width 14 % (10-15); White Blood Count 10.4 10^3/uL (3.5-10.8)
[2020-11-03 10:33] LABS: BUN/Creatinine Ratio 21.5 (8-20); Calcium 8.1 mg/dL (8.6-10.3); EGFR African American 83.7 (>60); EGFR Non-African American 69.2 (>60); Potassium 4.3 mmol/L (3.5-5.0)
[2020-11-03 10:41] LABS: INR 1.22 (0.82-1.09)
[2020-11-03] MEDS ORDERED: Senna TAB 8.6 mg TAB PO PRN (10:48)
[2020-11-03] MEDS ORDERED: Polyethylene Glycol 3350 17 GM PACKET PO PRN (10:48)
[2020-11-03 11:05] LABS: Influenza A Molecular Negative (Negative); Influenza B Molecular Negative (Negative)
[2020-11-03 12:04] LABS: C Reactive Protein 221.05 mg/L (<8.01)
[2020-11-03] MEDS ORDERED: Iohexol 300 (CONTRAST) 10 ML SDV IV ONE (19:14)
[2020-11-03] MEDS: Vancomycin 1000 MG in NS 0.9% 250 ML IVPB SCH (21:56)
[2020-11-04] MEDS: NS 0.9% 1000 ml BAG 1,000 ML IV SCH ×2 (02:06→18:23)
[2020-11-04] MEDS: Enoxaparin 40 MG/0.4 ML SYR SUBCUT SCH (05:43)
[2020-11-04 06:42] LABS: ABS Basophils 0.1 10^3/ul (0-0.2); ABS Eosinophils 0.2 10^3/ul (0-0.6); ABS Lymphocytes 1.2 10^3/ul (1.0-4.8); ABS Monocytes 0.8 10^3/ul (0-0.8); ABS Neutrophils 5.7 10^3/ul (1.5-7.7); Eosinophil % 2.2 %; Hematocrit 34 % (35-47); Hemoglobin 11.6 g/dL (12.0-16.0); Mean Corpuscular HGB Conc 34 g/dL (31-36); Mean Corpuscular Hemoglobin 31 pg (27-31); Mean Corpuscular Volume 92 fL (80-97); Mean Platelet Volume 7.5 fL (7.4-10.4); Platelet Count 354 10^3/uL (150-450); Red Blood Count 3.76 10^6 /uL (3.70-4.87); Red Cell Distribution Width 14 % (10-15)
[2020-11-04 07:00] LABS: C Reactive Protein 189.62 mg/L (<8.01); EGFR African American 88.9 (>60); EGFR Non-African American 73.4 (>60); Potassium 3.8 mmol/L (3.5-5.0)
[2020-11-04] MEDS: Multivitamins/Minerals TAB PO SCH ×2 (07:50→20:38)
[2020-11-04] MEDS: Cefepime 2 GM in Dextrose 2 GM/50 ML BAG IV SCH (07:50)
[2020-11-04] MEDS: Aspirin EC 81 mg TAB.EC (enteric coated) PO SCH (07:52)
[2020-11-04] MEDS ORDERED: Ondansetron ODT 4 mg TAB 4 MG TAB SL PRN (10:14)
[2020-11-04] MEDS: Vancomycin 1000 MG in NS 0.9% 250 ML IVPB SCH ×2 (10:41→20:38)
[2020-11-05] MEDS: NS 0.9% 1000 ml BAG 1,000 ML IV SCH (06:04)
[2020-11-05] MEDS: Enoxaparin 40 MG/0.4 ML SYR SUBCUT SCH (06:04)
[2020-11-05] MEDS ORDERED: Vancomycin Trough Check NOTE FOLLOW UP ONE (08:30)
[2020-11-05] MEDS: Aspirin EC 81 mg TAB.EC (enteric coated) PO SCH (09:12)
[2020-11-05] MEDS: Multivitamins/Minerals TAB PO SCH (09:13)
[2020-11-05] MEDS: Vancomycin 1000 MG in NS 0.9% 250 ML IVPB SCH (09:35)
[2020-11-05 11:36] VITALS: BP 140/70
== END 2020-11-05 12:20 | disposition home or self-care (01) | DRG 948 ==
LOC: ED 17:49 → MED 17:49
PROVIDERS: ADMIT Student in an Organized Health Care Education/Training Program; ATTEND Student in an Organized Health Care Education/Training Program